=== PATIENT | female | born 1945 | race Caucasian/White ===

== ENCOUNTER 2021-03-27 19:58 | Inpatient (IN) | payer MEDICARE, MEDICAID, SELFPAY ==
[2021-03-27 19:44] VITALS: BP 130/81; PULSE 89; RESP 20; TEMP 38.6; O2SAT 90; BMI 24.7
--- NOTE | 2021-03-27 19:55 | CT_ITS ---
PROCEDURE INFORMATION: Exam: CT Head Without Contrast Exam date and time: 03/27/2021 7:55 PM Age: 75 years old Clinical indication: Injury or trauma; Fall; Blunt trauma (contusions or hematomas); Additional info: Fall x3 days ago TECHNIQUE: Imaging protocol: Computed tomography of the head without contrast. Radiation optimization: All CT scans at this facility use at least one of these dose optimization techniques: automated exposure control; mA and/or kV adjustment per patient size (includes targeted exams where dose is matched to clinical indication); or iterative reconstruction. COMPARISON: No relevant prior studies available. FINDINGS: Brain: Hypodensity within the anterior limb right internal capsule extending region of anterior caudate. Hypodensity also anterior left lentiform nucleus crossing internal capsule to the region caudate head. White matter changes compatible with small vessel occlusive change. No mass. No hemorrhage. Cerebral ventricles: No ventriculomegaly. Paranasal sinuses: Retention cyst maxillary sinus. Mastoid air cells: Visualized mastoid air cells are well aerated. Bones/joints: No acute fracture. Soft tissues: No significant soft tissue abnormality. IMPRESSION: 1. Hypodensity within bilateral basal ganglia which is age indeterminate but may be secondary to chronic lacunar infarction. Clinical correlation recommended. 2. White matter changes compatible with small vessel occlusive change.
--- NOTE | 2021-03-27 19:55 | XR_ITS ---
PROCEDURE INFORMATION: Exam: XR Chest Exam date and time: 03/27/2021 7:55 PM Age: 75 years old Clinical indication: Cough and fever; Additional info: Cough fever fall TECHNIQUE: Imaging protocol: XR of the chest. Views: 4 or more views. COMPARISON: No relevant prior studies available. FINDINGS: Lungs: Unremarkable. No consolidation. Pleural spaces: Unremarkable. No pleural effusion. No pneumothorax. Heart/Mediastinum: Unremarkable. No cardiomegaly. Bones/joints: Unremarkable. IMPRESSION: No acute findings.
--- NOTE | 2021-03-27 19:55 | CT_ITS ---
PROCEDURE INFORMATION: Exam: CT Cervical Spine Without Contrast Exam date and time: 03/27/2021 7:55 PM Age: 75 years old Clinical indication: Injury or trauma; Fall; Blunt trauma; Additional info: Fall x3 days ago TECHNIQUE: Imaging protocol: Computed tomography images of the cervical spine without contrast. Radiation optimization: All CT scans at this facility use at least one of these dose optimization techniques: automated exposure control; mA and/or kV adjustment per patient size (includes targeted exams where dose is matched to clinical indication); or iterative reconstruction. COMPARISON: CR XR CHEST AP 03/27/2021 8:09 PM FINDINGS: Bones/joints: Advanced multilevel degenerative changes. Reversal of the cervical lordosis. Disc bulge C3-C4. No acute fracture or dislocation. Lungs: Apical emphysema. Soft tissues: No soft tissue swelling. IMPRESSION: Advanced multilevel degenerative changes.
--- NOTE | 2021-03-27 19:58 | XR_ITS ---
PROCEDURE INFORMATION: Exam: XR Pelvis Exam date and time: 03/27/2021 7:58 PM Age: 75 years old Clinical indication: Pelvic pain; Additional info: Fall TECHNIQUE: Imaging protocol: XR pelvis. Views: 1 or 2 view. COMPARISON: No relevant prior studies available. FINDINGS: Bones/joints: Mild degenerative changes. No acute fracture or dislocation. Soft tissues: Unremarkable. IMPRESSION: No acute findings.
--- NOTE | 2021-03-27 20:03 | XR_ITS ---
PROCEDURE INFORMATION: Exam: XR Left Knee Exam date and time: 03/27/2021 8:03 PM Age: 75 years old Clinical indication: Pain; Knee; Left; Patient HX: Fall x3 days ago TECHNIQUE: Imaging protocol: XR Left knee. Views: 3 views. COMPARISON: No relevant prior studies available. FINDINGS: Bones/joints: Mild degenerative changes. No acute fracture. Soft tissues: Normal. IMPRESSION: No acute findings.
[2021-03-27 20:05] LABS: Influenza A, PCR Not Detected (NotDetected); Influenza B, PCR Not Detected (NotDetected)
[2021-03-27 20:21] LABS: Alanine Aminotransferase 37 U/L (12-78); Albumin/Globulin Ratio 1.2 (1.1-1.8); Alkaline Phosphatase 134 U/L (38-126); Anion Gap 15.3 mEq/L (5-15); Aspartate Amino Transferase 48 U/L (14-36); Bilirubin,Total 0.2 mg/dl (0.2-1.3); Blood Urea Nitrogen 23 mg/dl (7-17); Calcium 9.5 mg/dl (8.4-10.2); Carbon Dioxide 24 mmol/L (22.0-30.0); Chloride 102 mmol/L (98-107); Creatinine Clearance Estimated 50 mL/min (50-200); Estimated Glomerular Filt Rate 54 ml/min (>60); GFR (African American) 66 ML/MIN (>60); Globulin 3.4 g/dL (1.3-3.2); Glucose 146 mg/dl (74-100); Potassium 3.3 mmoL/L (3.5-5.1); Sodium 138 mmol/L (136-145); Total Protein,Serum 7.4 g/dl (6.3-8.2)
[2021-03-27 20:22] LABS: Basophils # 0.1 K/mm3 (0-0.2); Basophils % 1.3 % (0.1-2.0); Eosinophils % 0.8 % (0.1-12.0); Hematocrit 35.5 % (37.0-47.0); Hemoglobin 11.4 g/dL (12.2-16.2); Lymphocytes # 0.8 K/mm3 (0.7-4.5); Lymphocytes % 13.4 % (10-50); Mean Corpuscular Hemoglobin 30.3 pg (27.0-31.2); Mean Corpuscular Volume 94.7 fl (81-99); Mean Platelet Volume 7.7 fl (7.4-10.4); Monocytes # 0.4 K/mm3 (0.1-1.0); Monocytes % 7.8 % (1.7-9.3); Neutrophils # 4.3 K/mm3 (1.8-7.8); Neutrophils % 76.7 % (37.0-80.0); Platelet Count 525 K/mm3 (142-424); Red Blood Count 3.75 M/mm3 (4.20-5.40); Red Cell Distribution Width 15.1 % (11.5-17.5); White Blood Count 5.6 K/mm3 (4.8-10.8)
[2021-03-27 20:25] LABS: C-Reactive Protein 113.3 mg/L (0-4)
[2021-03-27 20:40] LABS: Coronavirus 19, PCR Detected (NotDetected)
--- NOTE | 2021-03-27 20:41 | HMH.EDFALL ---
ED Disposition Clinical Impression: COVID-19, Lacunar infarction, Elevated erythrocyte sedimentation rate Falls Qualifiers: Encounter type: initial encounter Qualified Code(s): W19.XXXA - Unspecified fall, initial encounter Depression Qualifiers: Depression Type: major depressive disorder Major depression recurrence: unspecified whether recurrent Active/Remission status: remission status unspecified Qualified Code(s): F32.9 - Major depressive disorder, single episode, unspecified HTN (hypertension) Qualifiers: Hypertension type: primary hypertension Qualified Code(s): I10 - Essential (primary) hypertension Disposition: Admitted As Inpatient Condition on Discharge: Good - Critical Care Critical Care Time: No Attestation: On 03/27/21, the high probability of a clinically significant, sudden or life threatening deterioration of the following system(s) required my full and direct attention, intervention and personal management. The time I documented below is in addition to time spent performing reported procedures but includes the following listed in this critical care notation. Medical Decision Making - Medical Records Medical records reviewed: Yes: I reviewed the patient's medical records. - Speedy Inquiry Pt receiving controlled substance: No Vital Signs: 03/27/21 19:44 03/27/21 21:14 03/27/21 22:33 Temperature 101.4 F H 102 F H 99.9 F H Temperature Source Oral Rectal Oral Pulse Rate 83 73 Pulse Rate [Right Radial] 89 Respiratory Rate 20 25 H 19 Blood Pressure 141/74 H 134/77 Blood Pressure [Left Arm] 130/81 Blood Pressure Mean [Left Arm] 97 Blood Pressure Source Automatic Cuff Blood Pressure Source [Left Arm] Automatic Cuff Blood Pressure Position Sitting Blood Pressure Position [Left Arm] Sitting 02 Sat by Pulse Oximetry 90 L 94 L 93 L Oxygen Delivery Method Room Air Room Air Room Air - Lab Data Lab results reviewed: Yes: I reviewed the patient's lab results. Lab Results 03/27/21 19:56: WBC 5.6, RBC 3.75 L, Hgb 11.4 L, Hct 35.5 L, MCV 94.7, MCH 30.3, MCHC 32.0, RDW 15.1, Plt Count 525 H, MPV 7.7, Neut % (Auto) 76.7, Lymph % (Auto) 13.4, [place] % (Auto) 7.8, Eos % (Auto) 0.8, Baso % (Auto) 1.3, Neut # (Auto) 4.3, Lymph # (Auto) 0.8, [place] # (Auto) 0.4, Eos # (Auto) 0.0, Baso # (Auto) 0.1 03/27/21 19:56: Sodium 138, Potassium 3.3 L, Chloride 102, Carbon Dioxide 24, Anion Gap 15.3 H, BUN 23 H, Creatinine 1.00, Estimated Creat Clear 50, Estimated GFR 54 L, Est GFR ( Amer) 66, Glucose 146 H, Calcium 9.5, Total Bilirubin 0.2, AST 48 H, ALT 37, Alkaline Phosphatase 134 H, C-Reactive Protein 113.3 H, Total Protein 7.4, Albumin 4.0, Globulin 3.4 H, Albumin/Globulin Ratio 1.2 03/27/21 19:56: Lactate 4.0 H 03/27/21 19:56: ESR > 140 H 03/27/21 19:56: SARS-CoV-2 (PCR) Detected A, Influenza A Untype (PCR) Not detected, Influenza Type B (PCR) Not detected 03/27/21 19:56: Procalcitonin 0.230 03/27/21 21:00: Urine Color Yellow, Urine Appearance Clear, Urine pH 6.0, Ur Specific [place] 1.025, Urine Protein Trace, Urine Glucose (UA) Negative, Urine Ketones Negative, Urine Blood Trace-l, Urine Nitrate Negative, Urine Bilirubin Negative, Urine Urobilinogen 0.2, Ur Leukocyte Esterase Negative, Urine RBC 3-5, Urine WBC 5-10, Ur Squamous Epith Cells 3-5, Urine Bacteria Trace, Urine Mucus 1+ Result diagrams: 03/27/21 19:56 03/27/21 19:56 Orders (Tests/Meds): ED MEDICATIONS Generic Name Dose Route Start Last Admin Trade Name Freq PRN Reason Stop Dose Admin Sodium Chloride 1,000 mls @ 999 mls/hr 03/27/21 20:30 03/27/21 20:32 Sod Chlor 0.9% 1000ml Bag IV 03/27/21 21:30 999 mls/hr .Q1H1M CONRAD Administration Sodium Chloride 1,000 mls @ 999 mls/hr 03/27/21 20:30 03/27/21 20:32 Sod Chlor 0.9% 1000ml Bag IV 01/19/22 21:30 999 mls/hr .Q1H1M CONRAD Administration Discontinued Medications Generic Name Dose Route Start Last Admin Trade Name Freq PRN Reason Stop Dose Admin Acetaminop
[2021-03-27 21:12] LABS: Erythrocyte Sedimentation Rate > 140 mm/hr (0-30)
[2021-03-27 21:14] VITALS: BP 141/74; PULSE 83; RESP 25; TEMP 38.8; O2SAT 94
[2021-03-27 21:17] LABS: Microscopic, Urine URINE MICROSCOPIC (MICROSCOPIC)
--- NOTE | 2021-03-27 21:28 | PC.NURSE ---
DECAL APPLIER NOTIFIED OF NEED FOR ADMIT.
[2021-03-27 21:29] LABS: Appearance,Urine CLEAR (Clear); Bilirubin,Urine Negative (Negative); Blood, Urine TRACE-L (Negative); Color,Urine YELLOW (Yellow); Glucose,Urine (UA) Negative (Negative); Ketones,Urine Negative (Negative); Leukocyte Esterase,Urine Negative (Negative); Nitrate,Urine Negative (Negative); Protein,Urine TRACE (Negative); Specific Gravity, Urine 1.025 (1.005-1.030); Urobilinogen,Urine 0.2 EU/dl (0.2)
[2021-03-27 21:46] LABS: Bacteria,Urine Trace /lpf; Mucus,Urine 1+ /lpf
[2021-03-27 22:33] VITALS: BP 134/77; PULSE 73; RESP 19; TEMP 37.7; O2SAT 93
[2021-03-27 23:13] VITALS: BP 118/64; PULSE 77; RESP 18; TEMP 37.7; O2SAT 95
[2021-03-27 23:54] LABS: Reflex Lactic Add Lactic Reflex
[2021-03-28] VITALS (9 sets, daily range): BP systolic 124–155; BP diastolic 60–87; PULSE 61–77; RESP 16–19; TEMP 36.6–37.1; O2SAT 91–97; BMI 25.7
--- NOTE | 2021-03-28 00:12 | PC.NURSE ---
MARIO Chou attempted to call report at 2230 and was told by RN that she was not ready for report and to call back in 1 hour. MARIO Chou attempted to call report at 2330 and RN said she was dealing with a rapid response and to call back in an hour. Will attempt to call report at 0030.
[2021-03-28 00:26] LABS: Lactic Acid Follow Up (RFLX 1) 1.2 mmol/L (0.7-2.1)
--- NOTE | 2021-03-28 01:02 | PC.NURSE ---
Report called by MARIO Chou at 0046
--- NOTE | 2021-03-28 01:33 | PC.NURSE ---
patient up to floor via stretcher @ this time.
--- NOTE | 2021-03-28 07:12 | HMH.PHAVTE ---
[facility] Pharmacy VTE Monitoring - Patient Demographics Admission date: 03/28/21 Report Date: 03/28/21 Time: 07:12 Allergies/Adverse Reactions: Patient Allergies No Known Allergies Allergy (Verified 03/27/21 19:53) Height: 1.65 m Weight: 69.989 kg Patient Problems: Current Active Problems COVID-19 (Acute) Falls (Acute) Lacunar infarction (Acute) Elevated erythrocyte sedimentation rate (Acute) Depression (Acute) HTN (hypertension) (Acute) - VTE Risk Labs: VTE Related Lab Results Hgb 11.4 g/dL (12.2-16.2) L 03/27/21 19:56 Hct 35.5 % (37.0-47.0) L 03/27/21 19:56 Plt Count 525 K/mm3 (142-424) H 03/27/21 19:56 BUN 23 mg/dl (7-17) H 03/27/21 19:56 Creatinine 1.00 mg/dl (0.52-1.04) 03/27/21 19:56 Estimated Creat Clear 50 mL/min (50-200) 03/27/21 19:56 Was VTE Risk Assessment Performed: Yes VTE Score: 2 VTE Risk Level: Low Risk Clinical Trial Participant: No - Prophylaxis VTE Prophylaxis Ordered?: Yes Types of VTE Prophylaxis: TEDS Knee High
[2021-03-28 07:38] LABS: Basophils % 0.5 % (0.1-2.0); Hemoglobin 10.7 g/dL (12.2-16.2); Lymphocytes # 0.7 K/mm3 (0.7-4.5); Lymphocytes % 15.2 % (10-50); Mean Corpuscular HGB Conc 31.5 g/dL (31.8-35.4); Mean Corpuscular Hemoglobin 30.3 pg (27.0-31.2); Mean Corpuscular Volume 96.1 fl (81-99); Mean Platelet Volume 8.2 fl (7.4-10.4); Monocytes # 0.2 K/mm3 (0.1-1.0); Monocytes % 3.6 % (1.7-9.3); Neutrophils # 3.6 K/mm3 (1.8-7.8); Neutrophils % 80.7 % (37.0-80.0); Platelet Count 418 K/mm3 (142-424); Red Blood Count 3.54 M/mm3 (4.20-5.40); Red Cell Distribution Width 15.1 % (11.5-17.5); White Blood Count 4.5 K/mm3 (4.8-10.8)
--- NOTE | 2021-03-28 08:00 | CA_ITS ---
APPROVED REPORT EXAM: Comprehensive 2D, Doppler, and color-flow Echocardiogram Court Manager: Sydney Crane, RCS, RVS Ht: 5 ft 2 in Wt: 140lbs BSA: 1.64 BP: 134/77 mmHg Rhythm: Bradycardia Indications: Murmur, Covid+, smoker 2D Dimensions LVDd 5.06 cm LVEF (Visual) 67.40 % LVDs 3.16 cm LA Volume 62.40 mL LVOT 1.99 cm (M/F) 1.5-2.5 LA Volume Index 38.00 mL/m2 (M/F) 16-34 M-Mode Dimensions RVDd 2.13 cm (0.9-2.6) LA Diam 3.24 cm (1.9-4.0) LVDd 5.14 cm (3.5-5.7) Ao Diam 3.09 cm (2.0-3.7) LVDs 3.46 cm (3.5-5.7) IVSd 0.91 cm (0.6-1.1) PWd 1.03 cm (0.6-1.1) EF (Teich) 60.70% EPSs 0.80 cm FS 32.70% EDV (Teich) 126.10 mL TAPSE 2.51 (<1.7) ESV (Teich) 49.50 mL LV Diastology E Decel Time 323.00 (160-240 msec) E/A Ratio 0.74 MED E' 4.90 (< 7 cm/sec) MED A' 8.50 cm/s E'/MED E' Ratio 14.53 (>14) LAT E' 6.30 (<10 cm/sec) LAT A' 8.90 cm/s E/LAT E' Ratio 11.30 (>14) Aortic Valve LVOT Max 83.00 (70-110 cm/s) LVOT VTI 21.65 cm AoV Peak [place]. 147.00 (50-130 cm/s) AO Peak GR. 8.60 mmHg AO Mean GR. 4.80 (<5 mmHg) AO VTI 35.76 (18-25 cm) LINDA (VTI) 1.88 (2.5-4.5 cm2) Mitral Valve MV A Velocity 97.00 (40-130 cm/s) E/A Ratio 0.74 MV Decel. Time 323.00 (160-240 ms) MV Mean Gr. 1.50 (<2mmHg) Pulmonary Valve PV Peak Velocity 54.00 (50-150 cm/s) Tricuspid Valve TR P. Velocity 209.00 cm/s RAP Estimate 10.00 mmHg RVSP 27.40 mmHg Left Ventricle Left atrium is mildly enlarged, left ventricle is normal size, mild concentric left ventricular hypertrophy, visually estimated ejection fraction 55% with no regional wall motion abnormality, grade 1 diastolic dysfunction seen without tissue Doppler evidence of raise left atrial pressure. Right Ventricle Right atrium is mildly enlarged, right ventricle is normal size and contractility. Aortic Valve Aortic valve is minimally thickened and fibrosed, there is no aortic stenosis or aortic insufficiency. Mitral Valve Mitral valve is grossly normal, there is trace mitral regurgitation. Tricuspid Valve Tricuspid valve grossly normal, there is trace tricuspid regurgitation, tricuspid regurgitation jet velocity is inadequate for calculation of the right ventricular systolic pressure. Pulmonic Valve Pulmonic valve is poorly visualized. Great Vessels Aortic root is normal size. Inferior vena cava is normal size with normal inspiratory collapse. Pericardium No significant pericardial effusion noted. Conclusion 1. Biatrial enlargement, normal left ventricular size, mild concentric left ventricular hypertrophy, visually estimated ejection fraction 55% with no obvious regional wall motion abnormality, grade 1 diastolic dysfunction seen without tissue Doppler evidence of raise left atrial pressure. 2. Trace mitral and tricuspid regurgitation. 3. No significant pericardial effusion noted. 4. Inferior vena cava is normal size with normal inspiratory collapse. Mild Electronically signed by : Marty Quarles MD 03/29/2021 10:44:22
[2021-03-28 08:05] LABS: Anion Gap 10.9 mEq/L (5-15); Blood Urea Nitrogen 20 mg/dl (7-17); Calcium 8.6 mg/dl (8.4-10.2); Carbon Dioxide 21 mmol/L (22.0-30.0); Chloride 110 mmol/L (98-107); Creatinine Clearance Estimated 55 mL/min (50-200); Estimated Glomerular Filt Rate 82 ml/min (>60); GFR (African American) 99 ML/MIN (>60); Glucose 143 mg/dl (74-100); Magnesium 1.9 mg/dl (1.6-2.3); Potassium 3.9 mmoL/L (3.5-5.1); Sodium 138 mmol/L (136-145)
--- NOTE | 2021-03-28 08:08 | HMH.PHAINT ---
HOME MEDICATION LIST VERIFIED USING LIST FROM [facility]
--- NOTE | 2021-03-28 09:17 | HMH.HP ---
*Admission Date: 03/28/21 *Chief complaint: Fall *History of present illness: 75-year-old female patient presented to the [facility] emergency department with reports of falling out of bed 1 time the previous day and 3 times today. She is a resident of [place] and is usually up and walking around without any difficulty. She reports she just does not feel well she really cannot elaborate on that except that she just does not feel well and has a cough and a little short of breath Left knee x-ray, pelvis x-ray, chest x-ray all revealed no acute findings. Head CT and cervical spinal CT also revealed no acute findings In the emergency department after complaining of fatigue, weakness for several days, and cough patient tested positive for COVID [facility] History I have reviewed the patient's past medical history: Yes Medical History: Reports:: Cancer (ovarian), Hypertension *Have you ever received a pneumonia vaccine?: No *Have you received a flu vaccine this season?: No Other Surgeries: Yes: Hysterectomy-Total, Other - *Social History Smoking Status: Former smoker Tobacco Type: cigarettes # Packs/Day (cigarettes): 1 Alcohol Intake: never *Occupational Status:: retired Housing: assisted living facility Household Members: other *Travel in the last 8 weeks: None Family Hx:: Unable to obtain Review of Systems - Review of Systems Review of systems:: pertinent systems reviewed and negative unless documented below - Constitutional Reports fatigue, Reports weakness, Denies chills - Eyes Reports double vision, Denies blurry vision - ENT Denies change in voice, Denies dizziness - *Cardiovascular Reports shortness of breath with activity, Denies chest pain, Denies chest pain with activity - *Respiratory Reports cough, Reports shortness of breath, Reports shortness of breath with activity - *Gastrointestinal Denies abdominal pain, Denies change in stools - *Musculoskeletal Denies joint pain, Denies back pain - Integumentary/Breasts Denies change in skin color, Denies non-healing lesions - *Neurologic Denies abnormal movements, Denies headache(s), Denies seizure-like activity - Psychiatric Denies hearing things others do not hear, Denies change in appetite - Endocrine Denies excessive sweating, Denies heat intolerance - Hematologic/Lymphatic Denies easy bleeding, Denies easy bruising - Allergic/Immunologic Reports tongue swelling, Denies GI upset with certain foods Meds Home Medications Medication Instructions Recorded Confirmed Type Fluoxetine HCl 40 mg PO DAILY 03/27/21 03/28/21 History Metoprolol Tartrate [Lopressor 12.5 mg PO BID 03/27/21 03/27/21 History 25mg tablet] OLANZapine [Olanzapine] 7.5 mg PO HS 03/27/21 03/28/21 History hydroCHLOROthiazide [HCTZ 25mg 25 mg PO DAILY 03/27/21 03/27/21 History tab] Melatonin 5 mg PO HS 03/28/21 03/28/21 History Allergies Allergy/AdvReac Type Severity Reaction Status Date / Time No Known Allergies Allergy Verified 03/27/21 19:53 Exam Vital signs and Labs for Last 24 Hours: Temp Pulse Resp BP Pulse Ox 98.7 F 66 16 148/87 H 97 03/28/21 04:00 03/28/21 04:00 03/28/21 04:00 03/28/21 04:00 03/28/21 04:00 Laboratory Results - last 24 hr 03/27/21 00:15: Lactate 1.2 03/27/21 19:56: WBC 5.6, RBC 3.75 L, Hgb 11.4 L, Hct 35.5 L, MCV 94.7, MCH 30.3, MCHC 32.0, RDW 15.1, Plt Count 525 H, MPV 7.7, Neut % (Auto) 76.7, Lymph % (Auto) 13.4, [place] % (Auto) 7.8, Eos % (Auto) 0.8, Baso % (Auto) 1.3, Neut # (Auto) 4.3, Lymph # (Auto) 0.8, [place] # (Auto) 0.4, Eos # (Auto) 0.0, Baso # (Auto) 0.1 03/27/21 19:56: Sodium 138, Potassium 3.3 L, Chloride 102, Carbon Dioxide 24, Anion Gap 15.3 H, BUN 23 H, Creatinine 1.00, Estimated Creat Clear 50, Estimated GFR 54 L, Est GFR ( Amer) 66, Glucose 146 H, Calcium 9.5, Total Bilirubin 0.2, AST 48 H, ALT 37, Alkaline Phosphatase 134 H, C-Reactive Protein 113.3 H, Total Protein 7.4, Album
--- NOTE | 2021-03-28 09:36 | HMH.PULMCON ---
*Admission Date: 03/28/21 *Reason for consult:: Acute hypoxic respiratory failure, COVID-19 pneumonia. *History of present illness: Ms. Damon is a 75-year-old female greater than [id number] smoking history recently stopped smoking 2 months ago, not on any inhalers at home, not on any oxygen therapy presented to the hospital with worsening respiratory distress needing oxygen supplementation to maintain O2 saturation to the level and also found to be positive for COVID-19 pneumonia and pulmonary was called for further management. [facility] History Medical History: Reports:: Cancer (ovarian), Hypertension *Have you ever received a pneumonia vaccine?: No *Have you received a flu vaccine this season?: No Other Surgeries: Yes: Hysterectomy-Total, Other - *Social History Smoking Status: Former smoker Tobacco Type: cigarettes # Packs/Day (cigarettes): 1 Alcohol Intake: never *Occupational Status:: retired Housing: assisted living facility Household Members: other *Travel in the last 8 weeks: None Family Hx:: Unable to obtain ROS - Cons Reports body ache(s) - ENT Denies bleeding gums - Card Reports shortness of breath, Reports shortness of breath with activity - Resp Respiratory: Reports chest congestion, Reports cough, Reports dyspnea, Reports dyspnea on exertion, Denies excessive phlegm production, Reports cough with sputum production, Denies wheezing - GI Gastrointestingal: Denies: abdominal pain - Psych Denies thoughts of hurting/killing others, Denies thoughts of hurting/killing yourself Meds Home Medications Medication Instructions Recorded Confirmed Type Fluoxetine HCl 40 mg PO DAILY 03/27/21 03/28/21 History Metoprolol Tartrate [Lopressor 12.5 mg PO BID 03/27/21 03/27/21 History 25mg tablet] OLANZapine [Olanzapine] 7.5 mg PO HS 03/27/21 03/28/21 History hydroCHLOROthiazide [HCTZ 25mg 25 mg PO DAILY 03/27/21 03/27/21 History tab] Melatonin 5 mg PO HS 03/28/21 03/28/21 History Allergies Allergy/AdvReac Type Severity Reaction Status Date / Time No Known Allergies Allergy Verified 03/27/21 19:53 Exam - Constitutional Constitutional:: Present: no acute distress, comfortable - HENMT Exam HENMT: Present: normocephalic, atraumatic - Eye Exam Eyes:: Present: normal appearance both eyes and related structures - Neck Exam Neck:: Present: normal visual inspection - Respiratory Exam Respiratory:: Present: able to speak in complete sentences, no respiratory distress, wheezing. Absent: respiratory distress, crackles - Cardiovascular Exam Cardiac:: Present: S1, S2 - GI Exam GI:: Present: soft, normoactive bowel sounds - Skin Exam Skin: Present: warm, no rash - Neurological Exam Neurological: Present: alert, awake - Extremities Exam Extremities: Present: no cyanosis, no clubbing, no edema Internal Medicine - CN: Reslt - Labs CBC & Chem 7: 03/28/21 06:31 03/28/21 06:31 Labs: Short CBC 03/27/21 03/28/21 Range/Units 19:56 06:31 WBC 5.6 4.5 L (4.8-10.8) K/mm3 Hgb 11.4 L 10.7 L (12.2-16.2) g/dL Hct 35.5 L 34.0 L (37.0-47.0) % Plt Count 525 H 418 (142-424) K/mm3 BMP 03/27/21 03/28/21 19:56 06:31 Sodium 138 138 Potassium 3.3 L 3.9 Chloride 102 110 H Carbon Dioxide 24 21 L BUN 23 H 20 H Creatinine 1.00 0.70 D Glucose 146 H 143 H Calcium 9.5 8.6 Liver Function 03/27/21 Range/Units 19:56 Total Bilirubin 0.2 (0.2-1.3) mg/dl AST 48 H (14-36) U/L ALT 37 (12-78) U/L Alkaline Phosphatase 134 H (38-126) U/L Albumin 4.0 (3.5-5.0) g/dl Urine 03/27/21 Range/Units 21:00 Urine Color Yellow (Yellow) Urine Appearance Clear (Clear) Urine pH 6.0 (5.0-8.5) Ur Specific [place] 1.025 (1.005-1.030) Urine Protein Trace (Negative) Urine Glucose (UA) Negative (Negative) Assessment and Plan - Assessment and plan all Dx Assessment and Plan for all problems:: #Acute hypoxic
--- NOTE | 2021-03-28 09:50 | SW/DCPLANNER ---
Addendum entered by Lupe Urban 03/29/21 11:43: VERNELL FROM [facility] CAME UP TO SEE PATIENT TO EVALUATE HER TO RETURN BACK,, VERNELL STATED SHE FEELS SHE NEEDS TO GO SOMEWHERE FOR REHAB AND TO MONITOR HER 02...I HAVE SENT IT TO [facility]. IF ACCEPTED SHE WILL DISCHARGE THERE LATER IN THE AFTERNOON. Original Note: This patient currently resides at [facility]. I spoke with Diogenes/Vernell at [facility] to inform them patient has been admitted and is COVID positive. I will continue to follow up with [facility] until patient is medically stable for discharge. I will also follow up with PT/OT evaluation to see if placement is needed once medically stable for discharge. Discharge date is unknown at this time.
--- NOTE | 2021-03-28 09:51 | HMH.OTEV ---
OT Inpatient Evaluation Rehab OT IP Evaluation Start: 03/28/21 01:55 Freq: ONCE Status: Complete Protocol: Document 03/28/21 09:45 [facility] (Rec: 03/28/21 09:50 [facility] [id number]) Rehab OT IP Assessment Subjective History Pt oriented x 2 on arrival. Pt agreeable to engage in therapy evaluation. Pt was admitted via ED on 03/27/21 due to COVID-19, Lacunar infarction, Elevated erythrocyte sedimentation rate . History of patient not provided in reports. Therapist was informed patient is from [place]. Pt reports prior to being in the hospital she was independently with all ADLs. She did rely on staff to complete all IADLs . Pt did not use a walker during ambulation. Subjective They helped me if I needed it . Pt completed bed mobility to go from supine to sitting at eob with cga. Pt stood from eob with cga. Pt engaged in functional mobility task of ~ 25 feet with cga. Pt sat back down at eob with cga. Pt completed bed mobility and went from sitting to supine with cga. Pt was left with call kelly and all other needs in reach. Objective Patient Orientation Person,Birthday Upper Extremity Gross ROM Min Limitation <25% Shoulder ROM Limitations Muscle Weakness Elbow ROM Limitations Muscle Weakness Wrist Limitations of Range of Motion Muscle Weakness Bed Mobility bed mobility-scooting,bed mobility - supine/sit,bed mobility - rolling Assist Level Contact Guard/Hand Hold Transfer Training Sit/Stand Transfer Assist Level Contact Guard/Hand Hold Rehab OT IP prob,goals,plan Problems Date of Evaluation: 03/28/21 OT IP Problems Bed Mobility,Transfers,Gait, Balance,Self care,Safety Rehab Potential Rehab Potential Good Equipment Needs Assistive Devices Rolling / Wheeled Walker Plan
--- NOTE | 2021-03-28 10:13 | HMH.PTEV ---
Physical Therapy Evaluation Rehab PT IP Evaluation Start: 03/28/21 01:55 Freq: ONCE Status: Active Protocol: Document 03/28/21 10:09 ADOLFO (Rec: 03/28/21 10:12 PHORALEXIS [id number]) Subjective/History History History 75 yowf adm to [facility] with general weakness, found to be COVID-19 +. She reports she lives at a boarding house, which is actually a personal jail and that she was independent with ambulation at baseline, just not very much. Subjective Subjective Pt with no c/o this am. Rehab PT IP Eval Objective Appearance Patient Behavior Appropriate Patient Orientation Person,Place Difficulty following instructions none Speech Pattern Clear Ambulation Patient Able to Ambulate Yes Ambulation Observation IP General Gait Pattern Observation Wide Based Gait,Shuffling Step Ambulation Distance (feet) 30 Ambulation Assistive Device None Ambulation Ability Contact Guard/Hand Hold Balance Ability to Arise Able, uses arms to help Sitting Balance Steady, safe Standing Balance Steady, wide stance Dynamic Sitting Balance Ability Good Dynamic Standing Balance Ability Fair Transfers Bed Transfer Ability Contact Guard/Hand Hold Chair Transfer Ability Contact Guard/Hand Hold Sit to Stand Bed Transfer Ability Contact Guard/Hand Hold Sit to Stand Chair Transfer Ability Contact Guard/Hand Hold Rehab PT IP prob,goals,plan Problems Date of Evaluation: 03/28/21 PT IP Problems Bed Mobility,Transfers,Gait Rehab Potential Rehab Potential Good Plan PT Intervention Plan Bed Mobility,Transfers,Gait, Self care,Therapeutic Exercise PT Plan Frequency BID Duration LOS Discharge Goals Bed Transfer Ability Supervision/Stand by Sit to Stand Chair Transfer Ability Supervision/Stand by Ambulation Assistive Device None Ambulation Distance (feet) 40 Discharge Plan PT Discharge Plan Pt is appropriate to return to prior living situation currently once medically stable. G -code Required No Eval Complexity Eval Charge Codes 00719 - Moderate Complexity PHYSICIAN CERTIFICATION: I certify the specified therapy services for Keyla Damon are required, authorized, and reviewed every 30 days.
[2021-03-28 11:10] LABS: D-Dimer 1.85 ug/mL (0.0-0.5)
[2021-03-29] VITALS (7 sets, daily range): BP systolic 128–136; BP diastolic 66–93; PULSE 67–90; RESP 14–20; TEMP 36.8–37.3; O2SAT 90–98; BMI 26.4
[2021-03-29 07:55] LABS: Alanine Aminotransferase 31 U/L (12-78); Albumin Level 3.1 g/dl (3.5-5.0); Albumin/Globulin Ratio 1.1 (1.1-1.8); Alkaline Phosphatase 102 U/L (38-126); Anion Gap 8.5 mEq/L (5-15); Aspartate Amino Transferase 55 U/L (14-36); Bilirubin,Total 0.2 mg/dl (0.2-1.3); Blood Urea Nitrogen 17 mg/dl (7-17); Calcium 8.6 mg/dl (8.4-10.2); Carbon Dioxide 25 mmol/L (22.0-30.0); Chloride 110 mmol/L (98-107); Creatinine Clearance Estimated 57 mL/min (50-200); Estimated Glomerular Filt Rate 82 ml/min (>60); GFR (African American) 99 ML/MIN (>60); Globulin 2.9 g/dL (1.3-3.2); Glucose 169 mg/dl (74-100); Potassium 3.5 mmoL/L (3.5-5.1); Sodium 140 mmol/L (136-145)
--- NOTE | 2021-03-29 09:24 | P.PN_ITS ---
Internal Medicine - PN: Subj *Date: 03/29/21 *Time: 11:36 Interval history: No acute respiratory events overnight. Patient admits continued improvement in her symptoms. Exam - Constitutional Constitutional:: Present: no acute distress, comfortable - HENMT Exam HENMT: Present: normocephalic, atraumatic - Eye Exam Eyes:: Present: normal appearance both eyes and related structures - Neck Exam Neck:: Present: normal visual inspection - Respiratory Exam Respiratory:: Present: able to speak in complete sentences, no respiratory distress, wheezing - Cardiovascular Exam Cardiac:: Present: S1, S2 - GI Exam GI:: Present: soft - Skin Exam Skin: Present: warm, no rash - Neurological Exam Neurological: Present: alert, awake - Extremities Exam Extremities: Present: no cyanosis, no clubbing, no edema Assessment and Plan (1) COVID-19 Status: Acute Category: Medical Code(s): U07.1 - COVID-19 (2) Falls Status: Acute Qualifiers: Encounter type: initial encounter Qualified Code(s): W19.XXXA - Unspecified fall, initial encounter Category: Medical Code(s): W19.XXXA - Unspecified fall, initial encounter (3) HTN (hypertension) Status: Acute Qualifiers: Hypertension type: primary hypertension Qualified Code(s): I10 - Essential (primary) hypertension Category: Medical Code(s): I10 - Essential (primary) hypertension (4) Elevated C-reactive protein (CRP) Status: Acute Category: Medical Code(s): R79.82 - Elevated C-reactive protein (CRP) (5) Elevated erythrocyte sedimentation rate Status: Acute Category: Medical Code(s): R70.0 - Elevated erythrocyte sedimentation rate - Assessment and plan all Dx Assessment and Plan for all problems:: #Acute hypoxic respiratory failure: #COVID-19 pneumonia: Completed COVID-19 vaccination as per the patient. Greater than 61-bili-[id number] smoking history recently stopped smoking 2 months ago. Not on any inhalers at home. Not using any oxygen at home. COVID-19 PCR positive. Flu negative. No evidence of leukocytosis. BUN/creatinine within normal limits. CRP elevated at 113. D-dimer elevated 1.85. Improving oxygen saturations. No evidence of tachycardia. We will continue to monitor.Chest x-ray from admission mild patchy airspace disease predominantly left lower lobe. Interval update: No acute change in her respiratory status. Patient was placed back on 2 L nasal cannula overnight. She was saturating 96% on 2 L, weaned to room air. Auscultation continued to show wheezing. Plan: -Continue oxygen supplementation as needed to maintain O2 saturation goal of 88% and above. -COntinue remdesivir up until discharge on dexamethasone for 10 days for COVID- 19 pneumonia. -Continue levofloxacin x 5 days for possible community-acquired pneumonia. -DuoNebs every 6 hours scheduled. As thank you for involving pulmonary in this patient care. We will continue to follow. We will also schedule full PFTs and 6-minute walk testing in pulmonary clinic follow-up in 4 to 6 weeks.
--- NOTE | 2021-03-29 11:15 | P.PN_ITS ---
Internal Medicine - PN: Subj *Date: 03/29/21 *Time: 08:05 Interval history: pt states she is feeling better today was able to eat breakfast Exam Vital signs and Labs for Last 24 Hours: Temp Pulse Resp BP Pulse Ox 98.5 F 78 16 133/93 H 94 L 03/29/21 08:00 03/29/21 08:00 03/29/21 08:00 03/29/21 08:00 03/29/21 08:00 Laboratory Results - last 24 hr 03/28/21 10:11: D-Dimer 1.85 H 03/29/21 07:09: Sodium 140, Potassium 3.5, Chloride 110 H, Carbon Dioxide 25, Anion Gap 8.5, BUN 17, Creatinine 0.70, Estimated Creat Clear 57, Estimated GFR 82, Est GFR ( Amer) 99, Glucose 169 H, Calcium 8.6, Total Bilirubin 0.2, AST 55 H, ALT 31, Alkaline Phosphatase 102, Total Protein 6.0 L, Albumin 3.1 L D , Globulin 2.9, Albumin/Globulin Ratio 1.1 I & O for Last 24 hours: Intake & Output 03/26/21 03/27/21 03/28/21 03/29/21 11:59 11:59 11:59 11:59 Intake Total 2400 / 2400 300 / 300 Balance 2400 / 2400 300 / 300 Weight 154 lb 4.8 oz 158 lb 12.8 oz - Constitutional no acute distress, obese - *Routine HEENT Exam Head: Present: normocephalic Eye: Present: PERRL ENT: Present: mucous membranes moist - *Routine Neck Exam Present: supple. Absent: lymphadenopathy - *Routine Respiratory Exam Present: wheezes - *Routine Cardiovascular Exam Present: RRR - *Routine Abdominal Exam Present: soft, normoactive bowel sounds. Absent: tenderness - *Routine Extremities Exam Absent: cyanosis, clubbing, edema - *Routine Skin Exam Present: warm. Absent: rash - *Routine Neurological Exam Present: alert Assessment and Plan (1) COVID-19 Status: Acute Category: Medical Code(s): U07.1 - COVID-19 (2) Falls Status: Acute Qualifiers: Encounter type: initial encounter Qualified Code(s): W19.XXXA - Unspecified fall, initial encounter Category: Medical Code(s): W19.XXXA - Unspecified fall, initial encounter (3) HTN (hypertension) Status: Acute Qualifiers: Hypertension type: primary hypertension Qualified Code(s): I10 - Essential (primary) hypertension Category: Medical Code(s): I10 - Essential (primary) hypertension (4) Elevated C-reactive protein (CRP) Status: Acute Category: Medical Code(s): R79.82 - Elevated C-reactive protein (CRP) (5) Elevated erythrocyte sedimentation rate Status: Acute Category: Medical Code(s): R70.0 - Elevated erythrocyte sedimentation rate - Assessment and plan all Dx Assessment and Plan for all problems:: rounded with dr leyva all orders per dr leyva pulmark consult poss transfer back to personal senior care
--- NOTE | 2021-03-29 13:11 | XR_ITS ---
FINAL REPORT CLINICAL HISTORY: covid COMPARISON: March 27, 2021 FINDINGS: SINGLE VIEW CHEST. The heart is normal in size. The mediastinum is unremarkable. There is worsening bibasilar pneumonia or atelectasis. There is no pneumothorax. IMPRESSION: Worsening bibasilar pneumonia or atelectasis. Reviewed, Interpreted and Dictated by Joaquín Ceballos III, MD Transcribed by Tracey Ko Authenticated by Joaquín Ceballos III, MD on 03/29/2021 02:31:10 PM [facility]
--- NOTE | 2021-03-29 15:20 | SW/DCPLANNER ---
PATIENT IS [facility]ING [facility] BECAUSE OF THE IMMEDIATE NEED FOR ACUTE CARE BED R/T COVID PATIENT IS MEDICALLY STABLE TO DISCHARGE TODAY...WILL DISCHARGE THERE FOR SKILLED CARE AND ONCE SKILLED CARE IS COMPLETED TO RETURN BACK TO HER PERSONAL ASSISTED IN [place]..
--- NOTE | 2021-03-29 15:48 | HMH.DCSUM ---
General - General Admission date:: 03/28/21 Discharge date: 03/29/21 HPI HPI: 75-year-old female patient presented to the [facility] emergency department with reports of falling out of bed 1 time the previous day and 3 times today. She is a resident of [place] and is usually up and walking around without any difficulty. She reports she just does not feel well she really cannot elaborate on that except that she just does not feel well and has a cough and a little short of breath Left knee x-ray, pelvis x-ray, chest x-ray all revealed no acute findings. Head CT and cervical spinal CT also revealed no acute findings In the emergency department after complaining of fatigue, weakness for several days, and cough patient tested positive for COVID Hospital Course Hospital Course: Laboratory Tests 03/27/21 03/27/21 03/27/21 00:15 19:56 19:56 WBC 5.6 RBC 3.75 L Hgb 11.4 L Hct 35.5 L MCV 94.7 MCH 30.3 MCHC 32.0 RDW 15.1 Plt Count 525 H MPV 7.7 Neut % (Auto) 76.7 Lymph % (Auto) 13.4 [place] % (Auto) 7.8 Eos % (Auto) 0.8 Baso % (Auto) 1.3 Neut # (Auto) 4.3 Lymph # (Auto) 0.8 [place] # (Auto) 0.4 Eos # (Auto) 0.0 Baso # (Auto) 0.1 ESR D-Dimer Sodium 138 Potassium 3.3 L Chloride 102 Carbon Dioxide 24 Anion Gap 15.3 H BUN 23 H Creatinine 1.00 Estimated Creat Clear 50 Estimated GFR 54 L Est GFR ( Amer) 66 Glucose 146 H Lactate 1.2 Calcium 9.5 Magnesium Total Bilirubin 0.2 AST 48 H ALT 37 Alkaline Phosphatase 134 H C-Reactive Protein 113.3 H Total Protein 7.4 Albumin 4.0 Globulin 3.4 H Albumin/Globulin Ratio 1.2 Procalcitonin Urine Color Urine Appearance Urine pH Ur Specific [place] Urine Protein Urine Glucose (UA) Urine Ketones Urine Blood Urine Nitrate Urine Bilirubin Urine Urobilinogen Ur Leukocyte Esterase Urine RBC Urine WBC Ur Squamous Epith Cells Urine Bacteria Urine Mucus SARS-CoV-2 (PCR) Influenza A Untype (PCR) Influenza Type B (PCR) 03/27/21 03/27/21 03/27/21 19:56 19:56 19:56 WBC RBC Hgb Hct MCV MCH MCHC RDW Plt Count MPV Neut % (Auto) Lymph % (Auto) [place] % (Auto) Eos % (Auto) Baso % (Auto) Neut # (Auto) Lymph # (Auto) [place] # (Auto) Eos # (Auto) Baso # (Auto) ESR > 140 H D-Dimer Sodium Potassium Chloride Carbon Dioxide Anion Gap BUN Creatinine Estimated Creat Clear Estimated GFR Est GFR ( Amer) Glucose Lactate 4.0 H Calcium Magnesium Total Bilirubin AST ALT Alkaline Phosphatase C-Reactive Protein Total Protein Albumin Globulin Albumin/Globulin Ratio Procalcitonin Urine Color Urine Appearance Urine pH Ur Specific [place] Urine Protein Urine Glucose (UA) Urine Ketones Urine Blood Urine Nitrate Urine Bilirubin Urine Urobilinogen Ur Leukocyte Esterase Urine RBC Urine WBC Ur Squamous Epith Cells Urine Bacteria Urine Mucus SARS-CoV-2 (PCR) Detected A Influenza A Untype (PCR) Not detected Influenza Type B (PCR) Not detected 03/27/21 03/27/21 03/28/21 19:56 21:00 06:31 WBC 4.5 L RBC 3.54 L Hgb 10.7 L Hct 34.0 L MCV 96.1 MCH 30.3 MCHC 31.5 L RDW 15.1 Plt Count 418 MPV 8.2 Neut % (Auto) 80.7 H Lymph % (Auto) 15.2 [place] % (Auto) 3.6 Eos % (Auto) 0.0 L Baso % (Auto) 0.5 Neut # (Auto) 3.6 Lymph # (Auto) 0.7 [place] # (Auto) 0.2 Eos # (Auto) 0.0 Baso # (Auto) 0.0 ESR D-Dimer Sodium Potassium Chloride Carbon Dioxide Anion Gap BUN Creatinine Estimated Creat Clear Estimated GFR Est GFR ( Amer) Glucose Lact
--- NOTE | 2021-03-29 16:58 | PC.NURSE ---
sputum cup left at bedside. pt instructed to how to use the sputum cup.
== END 2021-03-29 16:52 | DRG 177 ==
LOC: ER 20:41 → 2ND 23:05
PROVIDERS: Internal Medicine Pulmonary Disease; Admitting Provider Emergency Medicine; Emergency Provider Emergency Medicine; PCP Emergency Medicine; Visit Provider Emergency Medicine
DX: U07.1 COVID-19 (principal); J12.82 Pneumonia due to coronavirus disease 2019; J96.01 Acute respiratory failure with hypoxia; W19.XXXA Unspecified fall, initial encounter; Z85.43 Personal history of malignant neoplasm of ovary; Z87.891 Personal history of nicotine dependence; I10 Essential (primary) hypertension; F32.9 Major depressive disorder, single episode, unspecified
CPT/HCPCS: 36415; 70450; 71045; 72125; 72170; 73562; 80048; 80053; 81001; 83605; 83735; 84145; 85025; 85378; 85651; 86140; 87040; 93306; 94640; 96365; 96366; 96375; 97110; 97162; 97166; 97530; 99284; C9803; J1956; J2405; U0003; U0005

== ENCOUNTER 2021-08-17 16:43 | Emergency (ER) | payer MEDICARE, MEDICAID, SELFPAY ==
[2021-08-17 16:44] VITALS: BP 127/72; PULSE 81; RESP 16; TEMP 36.8; O2SAT 94; BMI 26.6
--- NOTE | 2021-08-17 17:00 | XR_ITS ---
PROCEDURE INFORMATION: Exam: XR Chest Exam date and time: 08/17/2021 5:07 PM Age: 75 years old Clinical indication: Shortness of breath; Additional info: SOB TECHNIQUE: Imaging protocol: XR of the chest. Portable AP exam 5:12 p.m. Views: 1 view. COMPARISON: CR XR CHEST PORTABLE 03/29/2021 1:27 PM FINDINGS: Lungs: There is chronic interstitial prominence and subsegmental atelectasis in the lower lungs, when compared with the previous exam from March. No focal consolidation. Mild pulmonary hyperinflation. Pleural spaces: Unremarkable. No significant pleural effusion. No pneumothorax. Heart/Mediastinum: Cardiac silhouette appears within upper limits normal, considering portable AP film technique. Vasculature: Calcified plaque in the aortic arch. Bones/joints: There are spinal degenerative changes, with multilevel disc narrrowing and spondylosis. IMPRESSION: 1. No acute findings compared with 03/29/2021. 2. Chronic lower pulmonary interstitial prominence, mild hyperinflation. No consolidation.
--- NOTE | 2021-08-17 17:30 | ECG_ITS ---
APPROVED REPORT Exam: Resting ECG HR:74 bpm ECG Measurements Heart Rate 74 AXES AK 178 P 66 QRSd 97 QRS 29 QT 376 T 48 QTc 403 Conclusion SINUS RHYTHM NORMAL ECG UNCONFIRMED REPORT Electronically signed by : Rodríguez Caceres MD 08/20/2021 22:21:34
[2021-08-17 18:30] VITALS: BP 131/71; PULSE 71; O2SAT 93
[2021-08-17 18:36] LABS: Basophils # 0.1 K/mm3 (0-0.2); Basophils % 0.6 % (0.1-2.0); Eosinophils # 0.2 K/mm3 (0.0-0.4); Eosinophils % 1.5 % (0.1-12.0); Hematocrit 34.9 % (37.0-47.0); Hemoglobin 11.6 g/dL (12.2-16.2); Lymphocytes # 1.4 K/mm3 (0.7-4.5); Lymphocytes % 14.5 % (10-50); Mean Corpuscular HGB Conc 33.3 g/dL (31.8-35.4); Mean Corpuscular Hemoglobin 29.2 pg (27.0-31.2); Mean Corpuscular Volume 87.8 fl (81-99); Mean Platelet Volume 8.2 fl (7.4-10.4); Monocytes # 0.5 K/mm3 (0.1-1.0); Monocytes % 4.8 % (1.7-9.3); Neutrophils # 7.4 K/mm3 (1.8-7.8); Neutrophils % 78.6 % (37.0-80.0); Platelet Count 418 K/mm3 (142-424); Red Blood Count 3.97 M/mm3 (4.20-5.40); Red Cell Distribution Width 16.7 % (11.5-17.5); White Blood Count 9.4 K/mm3 (4.8-10.8)
--- NOTE | 2021-08-17 18:36 | HMH.EDGENADL ---
ED Disposition Clinical Impression: Weakness, Effusion, left knee, Arthritis of knee Disposition: Home, Self-Care Condition on Discharge: Good Instructions: DI for Osteoarthritis, DI for Knee Effusion, How to Use a Knee Immobilizer Additional Instructions: Knee immobilizer Ibuprofen or Tylenol for pain. Follow-up with orthopedics, Dr. Tejada, for left knee pain and effusion. On Thursday to make appointment. With primary care provider for weakness. Referrals: Bill Devries MD [Primary Care Provider] - Regis Tejada JR, MD [Physician] - - Critical Care Critical Care Time: No Attestation: On 08/17/21, the high probability of a clinically significant, sudden or life threatening deterioration of the following system(s) required my full and direct attention, intervention and personal management. The time I documented below is in addition to time spent performing reported procedures but includes the following listed in this critical care notation. Medical Decision Making - Medical Records Medical records reviewed: Yes: I reviewed the patient's medical records. MR Comment: Reviewed discharge summary from admission to this hospital in March. She did have a left knee x-ray at that time which showed nothing acute. - Speedy Inquiry Pt receiving controlled substance: No Vital Signs: 08/17/21 16:44 08/17/21 18:30 08/17/21 19:00 Temperature 98.2 F Temperature Source Oral Pulse Rate 71 73 Pulse Rate [Radial] 81 Respiratory Rate 16 Blood Pressure 131/71 123/79 Blood Pressure [Right Arm] 127/72 Blood Pressure Mean [Right Arm] 90 Blood Pressure Position [Right Arm] Sitting 02 Sat by Pulse Oximetry 94 L 93 L 94 L Oxygen Delivery Method Room Air 08/17/21 19:30 Temperature Temperature Source Pulse Rate 76 Pulse Rate [Radial] Respiratory Rate Blood Pressure 134/71 Blood Pressure [Right Arm] Blood Pressure Mean [Right Arm] Blood Pressure Position [Right Arm] 02 Sat by Pulse Oximetry 94 L Oxygen Delivery Method - Lab Data Lab Results 08/17/21 18:10: WBC 9.4, RBC 3.97 L, Hgb 11.6 L, Hct 34.9 L, MCV 87.8, MCH 29.2, MCHC 33.3, RDW 16.7, Plt Count 418, MPV 8.2, Neut % (Auto) 78.6, Lymph % (Auto) 14.5, [place] % (Auto) 4.8, Eos % (Auto) 1.5, Baso % (Auto) 0.6, Neut # (Auto) 7.4, Lymph # (Auto) 1.4, [place] # (Auto) 0.5, Eos # (Auto) 0.2, Baso # (Auto) 0.1 08/17/21 18:10: Sodium 137, Potassium 7.0 H*, Chloride 104, Carbon Dioxide 28, Anion Gap 12.0, BUN 24 H, Creatinine 0.80, Estimated Creat Clear 57, Estimated GFR 70, Est GFR ( Amer) 85, Glucose 115 H, Calcium 9.6, Total Bilirubin 1.1, AST 52 H, ALT 21, Alkaline Phosphatase 119, Troponin I < 0.01, Total Protein 8.2 D, Albumin 4.1, Globulin 4.1 H, Albumin/Globulin Ratio 1.0 L 08/17/21 18:56: Potassium 3.4 L D Result diagrams: 08/17/21 18:10 08/17/21 18:56 Orders (Tests/Meds): ORDERS Category Date Time Status Troponin I Q3H Lab 08/17/21 21:15 Ordered Troponin I Q3H Lab 08/18/21 00:15 Ordered - Radiology Data #1 Image(s): Chest, Knee Image Reviewed: Yes I have reviewed radiologist's interpretation PROCEDURE INFORMATION: Exam: XR Chest Exam date and time: 08/17/2021 5:07 PM Age: 75 years old Clinical indication: Shortness of breath; Additional info: SOB TECHNIQUE: Imaging protocol: XR of the chest. Portable AP exam 5:12 p.m. Views: 1 view. COMPARISON: CR XR CHEST PORTABLE 03/29/2021 1:27 PM FINDINGS: Lungs: There is chronic interstitial prominence and subsegmental atelectasis in the lower lungs, when compared with the previous exam from March. No focal consolidation. Mild pulmonary hyperinflation. Pleural spaces: Unremarkable. No significant pleural effusion. No pneumothorax. Heart/Mediastinum: Cardiac silhouette appears within upper limits normal, considering portable AP film technique. Vasculature: Calcified plaque in the aortic arch. Bones/joints: There are spinal deg
[2021-08-17 18:38] LABS: Chloride 104 mmol/L (98-107); Sodium 137 mmol/L (136-145)
[2021-08-17 18:40] LABS: Blood Urea Nitrogen 24 mg/dl (7-17); Creatinine Clearance Estimated 57 mL/min (50-200); Estimated Glomerular Filt Rate 70 ml/min (>60); GFR (African American) 85 ML/MIN (>60)
[2021-08-17 18:41] LABS: Alanine Aminotransferase 21 U/L (12-78); Albumin Level 4.1 g/dl (3.5-5.0); Alkaline Phosphatase 119 U/L (38-126); Aspartate Amino Transferase 52 U/L (14-36); Bilirubin,Total 1.1 mg/dl (0.2-1.3); Calcium 9.6 mg/dl (8.4-10.2); Carbon Dioxide 28 mmol/L (22.0-30.0); Globulin 4.1 g/dL (1.3-3.2); Glucose 115 mg/dl (74-100); Total Protein,Serum 8.2 g/dl (6.3-8.2)
--- NOTE | 2021-08-17 18:49 | XR_ITS ---
PROCEDURE INFORMATION: Exam: XR Left Knee Exam date and time: 08/17/2021 6:58 PM Age: 75 years old Clinical indication: Pain and injury or trauma; Fall; Swelling (edema); Knee; Left; Injury details: PT states that she fell 3-4 days ago; Additional info: Pain and swelling TECHNIQUE: Imaging protocol: XR Left knee. Views: 3 views. COMPARISON: CR XR KNEE LT 3V 03/27/2021 8:12 PM FINDINGS: Bones/joints: Patchy demineralization of bones, probably benign osteopenia in a 75-year-old. There is a tiny cortical erosion/cystic change along the medial margin of the tibial plateau seen on series 3, questionably present on the prior study but more prominent on the current exam, and some possible erosive changes along the posterior tibial plateau seen on lateral series 4. No acute appearing fracture or dislocation. Moderate knee joint space narrowing suggesting underlying chondromalacia. Minimal femoral periarticular spurs. Large knee joint effusion. Patellofemoral joint otherwise unremarkable. Soft tissues: Some calcified atherosclerotic plaques in the popliteal artery and proximal calf. Prominent medial soft tissue swelling at the knee.No radiopaque foreign bodies seen. IMPRESSION: 1. No acute fracture or dislocation. 2. Large knee joint effusion. 3. Mild marginal erosions of the medial tibial plateau, and moderate knee joint space narrowing. Correlate for erosive arthropathy such as rheumatoid disease, differential would include a septic joint, correlate clinically to exclude infection. 4. Medial periarticular soft tissue swelling, correlate for contusion. 5. Osteopenia. 6. Atherosclerotic disease.
--- NOTE | 2021-08-17 18:51 | PC.NURSE ---
Jodie from lab called critical potassium 7.0 , confirmed and verified, given to ER
[2021-08-17 18:53] LABS: Troponin I < 0.01 ng/ml (0.00-0.034)
[2021-08-17 19:00] VITALS: BP 123/79; PULSE 73; O2SAT 94
[2021-08-17 19:14] LABS: Potassium 3.4 mmoL/L (3.5-5.1)
[2021-08-17 19:30] VITALS: BP 134/71; PULSE 76; O2SAT 94
[2021-08-17 20:27] VITALS: BP 141/73; PULSE 85; RESP 20; TEMP 36.8; O2SAT 95
--- NOTE | 2021-08-17 20:28 | PC.NURSE ---
attempted to reach [place] x3, contacted dispatch and requested they send an officer down to notify them that patient is ready to be discharged
== END 2021-08-17 22:47 | disposition home or self-care (01) ==
PROVIDERS: Emergency Provider Emergency Medicine; PCP Emergency Medicine
DX: M25.562 Pain in left knee (principal); M25.462 Effusion, left knee; R06.02 Shortness of breath; R53.1 Weakness; E87.5 Hyperkalemia; M85.80 Other specified disorders of bone density and structure, unspecified site; I70.90 Unspecified atherosclerosis; Z79.899 Other long term (current) drug therapy; Z87.891 Personal history of nicotine dependence; Z82.49 Family history of ischemic heart disease and other diseases of the circulatory system; Z80.9 Family history of malignant neoplasm, unspecified
CPT/HCPCS: 71045; 73562; 80053; 84132; 84484; 85025; 93005; 99285

== ENCOUNTER → 2021-11-15 13:18 | Outpatient (CLI) | payer MEDICARE, MEDICAID, SELFPAY ==
--- NOTE | 2021-11-15 13:24 | XR_ITS ---
FINAL REPORT CLINICAL HISTORY: hip pain FINDINGS: 2 views of the left hip were obtained. There is no acute fracture or dislocation. There are mild degenerative changes. There are no soft tissue abnormalities. IMPRESSION: Mild degenerative change. Reviewed, Interpreted and Dictated by Joaquín Ceballos III, MD Transcribed by Raad Najera Authenticated and [facility]
--- NOTE | 2021-11-15 13:24 | XR_ITS ---
FINAL REPORT CLINICAL HISTORY: hip pain FINDINGS: 2 views of the right hip and an AP pelvis were obtained. There is no acute fracture or dislocation. There is mild degenerative change of both hips. There are no soft tissue abnormalities. IMPRESSION: Mild degenerative change. Reviewed, Interpreted and Dictated by Joaquní Ceballos III, MD Transcribed by Raad Najera Authenticated and . [facility]
== END ==
PROVIDERS: PCP Emergency Medicine; Visit Provider Orthopaedic Surgery
DX: M25.552 Pain in left hip (principal); M25.551 Pain in right hip
CPT/HCPCS: 73502

== ENCOUNTER 2021-11-26 22:09 | Observation (INO) | payer MEDICARE, MEDICAID, SELFPAY ==
[2021-11-26 22:20] VITALS: BP 104/61; PULSE 72; RESP 16; TEMP 36.9; O2SAT 95; BMI 28.1
[2021-11-26 22:30] VITALS: BP 104/61; PULSE 72; O2SAT 94
--- NOTE | 2021-11-26 22:30 | PC.NURSE ---
Dr. Devries notified of critical potassium
--- NOTE | 2021-11-26 22:48 | CT_ITS ---
PROCEDURE INFORMATION: Exam: CT Abdomen And Pelvis Without Contrast Exam date and time: 11/26/2021 11:29 PM Age: 76 years old Clinical indication: Nausea and vomiting; Additional info: Nausea/ vomiting TECHNIQUE: Imaging protocol: Computed tomography of the abdomen and pelvis without contrast. Radiation optimization: All CT scans at this facility use at least one of these dose optimization techniques: automated exposure control; mA and/or kV adjustment per patient size (includes targeted exams where dose is matched to clinical indication); or iterative reconstruction. COMPARISON: CR XR HIP LT 2-3V W/PELVIS 11/15/2021 1:27 PM FINDINGS: Lungs: Minimal bibasilar atelectasis or scarring. Heart: Atherosclerotic calcification of the visualized right coronary artery and distal thoracic aorta. Liver: Mild hepatomegaly. Gallbladder and bile ducts: Normal Pancreas: Normal. Spleen: Normal. Adrenal glands: Normal. No mass. Kidneys and ureters: Normal. Stomach and bowel: Colonic diverticulosis. Several loops of nondilated, gas and fluid-filled small bowel, which is a nonspecific finding, but can be seen with enteritis. Appendix: No evidence of appendicitis. Intraperitoneal space: Unremarkable. No free air. No significant fluid collection. Vasculature: Atherosclerotic disease of the abdominal aorta and iliac arteries, with infrarenal abdominal aortic aneurysm measuring 3.8 cm in diameter. No evidence of leakage or rupture. Lymph nodes: Unremarkable. No enlarged lymph nodes. Urinary bladder: Unremarkable as visualized. Reproductive: Uterus is surgically absent. Bones/joints: Multilevel thoracolumbar spine degenerative disc space narrowing and osteophyte formation. Soft tissues: Normal. IMPRESSION: Several loops of nondilated, gas and fluid-filled small bowel, which is a nonspecific finding, but can be seen with enteritis.
--- NOTE | 2021-11-26 22:49 | HMH.EDNVD ---
Discharge Plan Disposition Patient Disposition: Admitted as Observation Chief Complaint: Nausea/Vomiting/Diarrhea Clinical Impressions Clinical Impression: Enteritis, Depression, SCOTT (acute kidney injury), AAA (abdominal aortic aneurysm) without rupture, Overweight (BMI 25.0-29.9) Discharge ED Provider: Bill Devries Nausea/Vomiting/Diarrhea HPI General Chief complaint: Nausea/Vomiting/Diarrhea Stated complaint: vomiting Time Seen by Provider: 11/26/21 22:49 Mode of Arrival: EMS Source of Information: Patient, EMS and Medical Record Limitations: No Limitations Description of Symptoms (Recalled from ER Triage Doc. by RN): Pt arrived via ems, per Dimitris Downing, pt has had nausea and vomiting since 1430 this afternoon. Pt states symptoms have been going on for greater than a week. History of Present Illness HPI Narrative: sent from nursing home by ems for vomiting and diarrhea which started this afternoon - MD complaint: vomiting and diarrhea Onset (ago): day(s) Associated Abdominal Pain: Yes Location of pain: diffuse Severity: moderate Associated symptoms: denies other symptoms Related Data Home Medications Medication Instructions Recorded Confirmed fluoxetine 40 mg capsule 40 mg PO DAILY Depression 03/27/21 11/15/21 hydrochlorothiazide 25 mg tablet 25 mg PO DAILY Hypertension 03/27/21 11/15/21 metoprolol tartrate 25 mg tablet 12.5 mg PO BID Hypertension 03/27/21 11/15/21 olanzapine 7.5 mg tablet 7.5 mg PO HS Anxiety 03/27/21 11/15/21 melatonin 5 mg tablet 5 mg PO HS Insomnia 03/28/21 11/15/21 Previous Rx's Medication Instructions Recorded dexamethasone 4 mg tablet 6 mg PO DAILY 5 days #5 tabs 03/29/21 levofloxacin 500 mg tablet 500 mg PO DAILY 5 days #5 tabs 03/29/21 Allergies Allergy/AdvReac Type Severity Reaction Status Date / Time No Known Allergies [facility] Ver[facility]15/21 13:54 [facility] Social History Smoking Status: Current every day smoker tobacco type: cigarettes packs per day: 1 alcohol intake: never current occupational status: retired Travel in the last 8 weeks: None household members: other housing: assisted living facility ROS Obtained: Yes All systems reviewed & no additional complaints except as documented Physical Exam General General appearance: alert Head Head exam: normocephalic Eye Eye exam: Present PERRL and EOMI; Absent scleral icterus ENT ENT exam: Present mucous membranes dry Neck Neck exam: Present full ROM and trachea midline Respiratory Respiratory exam: Present normal lung sounds bilaterally Cardiovascular Cardiovascular exam: Present regular rate and systolic murmur Abdominal Exam Abdominal exam: Present soft and tenderness; Absent guarding Abdominal tenderness: Present epigastrium and mild Extremities Exam Extremities exam: Absent tenderness Neurological Exam Neurological exam: Present alert, oriented X3 and CN II-XII intact Psychiatric Psychiatric exam: Present normal affect Skin Skin exam: Absent rash Medical Decision Making Medical Records Medical records reviewed: Yes I reviewed the patient's medical records. Speedy Inquiry Pt receiving controlled substance: No Vital Signs: 11/26/21 22:20 11/26/21 22:30 11/26/21 23:30 Temperature 98.4 F Temperature Source Oral Pulse Rate 72 72 Pulse Rate [Apical] 72 Respiratory Rate 16 Blood Pressure 104/61 L 104/48 L Blood Pressure [Right Arm] 104/61 L Blood Pressure Mean [Right Arm] 75 Blood Pressure Source [Right Arm] Automatic Cuff Blood Pressure Position [Right Arm] Sitting 02 Sat by Pulse Oximetry 95 94 L 94 L Oxygen Delivery Method Room Air Room Air Room Air 11/27/21 00:00 Temperature Temperature Source Pulse Rate 67 Pulse Rate [Apical] Respiratory Rate Blood Pressure 95/70 L Blood Pressure [Right Arm] Blood Pressure Mean [Right Arm] Blood Pressure Source [Right Arm] Blood Pressure Position [Right
--- NOTE | 2021-11-26 22:50 | XR_ITS ---
PROCEDURE INFORMATION: Exam: XR Chest Exam date and time: 11/26/2021 11:49 PM Age: 76 years old Clinical indication: Other: N/v; Additional info: Nausea vomiting. TECHNIQUE: Imaging protocol: Radiologic exam of the chest. Views: 2 views. COMPARISON: CR XR CHEST PORTABLE 08/17/2021 5:07 PM FINDINGS: Lungs: Minimal bibasilar atelectasis or scarring. Decreased vascularity within the upper lobes, suggesting centrilobular emphysema. Pleural spaces: Unremarkable. No pleural effusion. No pneumothorax. Heart/Mediastinum: Normal. Vasculature: Atherosclerotic vascular disease. Bones/joints: Multilevel thoracic spine degenerative disc space narrowing and osteophyte formation. IMPRESSION: No acute cardiopulmonary abnormality.
--- NOTE | 2021-11-26 22:50 | PC.NURSE ---
Pt up to bathroom with minimal assistance.
--- NOTE | 2021-11-26 23:07 | PC.NURSE ---
s/w pt's sister, Ivis Damon, and gave pt update and POC. Pt stated it was ok to update her.
[2021-11-26 23:12] LABS: Basophils # 0.1 K/mm3 (0-0.2); Basophils % 0.6 % (0.1-2.0); Chloride 95 mmol/L (98-107); Eosinophils # 0.2 K/mm3 (0.0-0.4); Eosinophils % 1.2 % (0.1-12.0); Hematocrit 39.9 % (37.0-47.0); Hemoglobin 12.7 g/dL (12.2-16.2); Lymphocytes # 1.4 K/mm3 (0.7-4.5); Lymphocytes % 8.4 % (10-50); Mean Corpuscular HGB Conc 31.8 g/dL (31.8-35.4); Mean Corpuscular Hemoglobin 30.3 pg (27.0-31.2); Mean Corpuscular Volume 95.3 fl (81-99); Mean Platelet Volume 7.6 fl (7.4-10.4); Monocytes # 0.9 K/mm3 (0.1-1.0); Monocytes % 5.5 % (1.7-9.3); Neutrophils # 14.2 K/mm3 (1.8-7.8); Neutrophils % 84.3 % (37.0-80.0); Platelet Count 379 K/mm3 (142-424); Red Blood Count 4.18 M/mm3 (4.20-5.40); Red Cell Distribution Width 15.9 % (11.5-17.5); Sodium 137 mmol/L (136-145); White Blood Count 16.9 K/mm3 (4.8-10.8)
--- NOTE | 2021-11-26 23:12 | PC.NURSE ---
Pt unable to provide urine sample at this time. Pt given warm blanket for comfort.
[2021-11-26 23:14] LABS: Alanine Aminotransferase 35 U/L (12-78); Alkaline Phosphatase 187 U/L (38-126); Aspartate Amino Transferase 32 U/L (14-36); Bilirubin,Total 0.2 mg/dl (0.2-1.3); Blood Urea Nitrogen 79 mg/dl (7-17); Creatinine Clearance Estimated 29 mL/min (50-200); Estimated Glomerular Filt Rate 24 ml/min (>60); GFR (African American) 29 ML/MIN (>60)
[2021-11-26 23:15] LABS: Albumin Level 4.3 g/dl (3.5-5.0); Albumin/Globulin Ratio 1.3 (1.1-1.8); Anion Gap 20.5 mEq/L (5-15); Calcium 8.6 mg/dl (8.4-10.2); Carbon Dioxide 24 mmol/L (22.0-30.0); Globulin 3.3 g/dL (1.3-3.2); Glucose 148 mg/dl (74-100); Lipase 36 U/L (23-300); Total Protein,Serum 7.6 g/dl (6.3-8.2)
[2021-11-26 23:18] LABS: Potassium 2.5 mmoL/L (3.5-5.1)
[2021-11-26 23:20] LABS: MANUAL DIFFERENTIAL MANUAL DIFFERENTIAL (MANUAL DIFF)
[2021-11-26 23:30] VITALS: BP 104/48; PULSE 72; O2SAT 94
[2021-11-26 23:30] LABS: Troponin I < 0.01 ng/ml (0.00-0.034)
[2021-11-27] VITALS (7 sets, daily range): BP systolic 95–125; BP diastolic 61–72; PULSE 53–83; RESP 16–18; TEMP 36.4–36.7; O2SAT 91–99; BMI 25.3
[2021-11-27 00:12] LABS: Microscopic, Urine URINE MICROSCOPIC (MICROSCOPIC)
[2021-11-27 00:36] LABS: Coronavirus 19, PCR Not Detected (NotDetected); Influenza A, PCR Not Detected (NotDetected); Influenza B, PCR Not Detected (NotDetected)
[2021-11-27 00:39] LABS: Lymphocytes % 12 % (10-50); Monocytes % 4 % (2-9); Neutrophils % 84 % (42-76); Total Cells Counted 100
[2021-11-27 00:40] LABS: Platelet Estimate Normal; RBC Morphology Normal
[2021-11-27 00:49] LABS: Appearance,Urine CLEAR (Clear); Bilirubin,Urine Negative (Negative); Blood, Urine Negative (Negative); Color,Urine YELLOW (Yellow); Glucose,Urine (UA) Negative (Negative); Ketones,Urine TRACE (Negative); Leukocyte Esterase,Urine Negative (Negative); Nitrate,Urine Negative (Negative); Protein,Urine Negative (Negative); Specific Gravity, Urine 1.015 (1.005-1.030); Urobilinogen,Urine 0.2 EU/dl (0.2)
[2021-11-27 00:50] LABS: Bacteria,Urine 1+ /lpf
[2021-11-27 01:09] LABS: Lactic Acid 2.5 mmol/L (0.7-2.1)
--- NOTE | 2021-11-27 01:15 | PC.NURSE ---
Gave pt update to Wilmar from [employer].
[2021-11-27 02:10] LABS: Troponin I < 0.01 ng/ml (0.00-0.034)
--- NOTE | 2021-11-27 03:37 | PC.NURSE ---
pt to floor via wheel chair [id number].
[2021-11-27 04:39] LABS: Reflex Lactic Add Lactic Reflex
--- NOTE | 2021-11-27 04:59 | PC.NURSE ---
attempted to get labs at this time, assisted by Emmy Oropeza, unable to get labs drawn at this time
[2021-11-27 05:33] LABS: Lactic Acid Follow Up (RFLX 1) 1.1 mmol/L (0.7-2.1)
[2021-11-27 05:57] LABS: Basophils # 0.1 K/mm3 (0-0.2); Basophils % 0.7 % (0.1-2.0); Eosinophils # 0.3 K/mm3 (0.0-0.4); Hematocrit 39.1 % (37.0-47.0); Hemoglobin 12.3 g/dL (12.2-16.2); Lymphocytes # 1.7 K/mm3 (0.7-4.5); Lymphocytes % 12.9 % (10-50); Mean Corpuscular HGB Conc 31.5 g/dL (31.8-35.4); Mean Corpuscular Volume 95.4 fl (81-99); Mean Platelet Volume 7.4 fl (7.4-10.4); Monocytes # 0.9 K/mm3 (0.1-1.0); Monocytes % 6.7 % (1.7-9.3); Neutrophils # 10.3 K/mm3 (1.8-7.8); Neutrophils % 77.8 % (37.0-80.0); Platelet Count 327 K/mm3 (142-424); White Blood Count 13.2 K/mm3 (4.8-10.8)
[2021-11-27 06:04] LABS: Anion Gap 16.6 mEq/L (5-15); Blood Urea Nitrogen 76 mg/dl (7-17); Calcium 8.1 mg/dl (8.4-10.2); Carbon Dioxide 23 mmol/L (22.0-30.0); Chloride 100 mmol/L (98-107); Creatinine Clearance Estimated 33 mL/min (50-200); Estimated Glomerular Filt Rate 32 ml/min (>60); GFR (African American) 38 ML/MIN (>60); Glucose 111 mg/dl (74-100); Sodium 137 mmol/L (136-145)
[2021-11-27 06:10] LABS: Potassium 2.6 mmoL/L (3.5-5.1)
--- NOTE | 2021-11-27 06:11 | PC.NURSE ---
critical potassium of 2.6 reported, improved from 2.5 from ED
[2021-11-27 06:21] LABS: Troponin I < 0.01 ng/ml (0.00-0.034)
--- NOTE | 2021-11-27 07:23 | P.CONPHA_ITS ---
[facility] Pharmacy VTE Monitoring Patient Demographics Admission date: 11/27/21 Report Date: 11/27/21 Time: 07:23 Patient Allergies No Known Allergies Allergy (Verified 11/27/21 03:13) Height: 1.63 m Weight: 67.33 kg Current Active Problems (Updated 11/27/21 @ 03:19 by Amy Wayne RN) Enteritis (Acute) Depression (Acute) SCOTT (acute kidney injury) (Acute) AAA (abdominal aortic aneurysm) without rupture (Acute) Overweight (BMI 25.0-29.9) (Acute) VTE Risk Labs: VTE Related Lab Results Hgb 12.3 g/dL (12.2-16.2) 11/27/21 05:42 Hct 39.1 % (37.0-47.0) 11/27/21 05:42 Plt Count 327 K/mm3 (142-424) 11/27/21 05:42 BUN 76 mg/dl (7-17) H 11/27/21 05:42 Creatinine 1.60 mg/dl (0.52-1.04) H 11/27/21 05:42 Estimated Creat Clear 33 mL/min (50-200) 11/27/21 05:42 Was VTE Risk Assessment Performed: Yes VTE Score: 6 VTE Risk Level: Moderate Risk Prophylaxis VTE Prophylaxis Ordered?: Yes Types of VTE Prophylaxis: TEDS Knee High Location of Applied Device: Bilateral Lower Extremeties
--- NOTE | 2021-11-27 09:40 | EXP.HP ---
History of Present Illness *Admission Date: 11/27/21 [facility] Medical History Ovarian cancer Surgical History (Updated 11/27/21 @ 03:20 by Amy Wayne RN) History of hysterectomy Family History (Updated 11/27/21 @ 03:20 by Amy Wayne RN) Other No significant family history Social History (Updated 11/27/21 @ 03:21 by Amy Wayne RN) Smoking Status: Current every day smoker tobacco type: cigarettes packs per day: 1 alcohol intake: never current occupational status: retired Travel in the last 8 weeks: None household members: other housing: assisted living facility Meds Home Medications and Allergies Home Medications Medication Instructions Recorded Confirmed Type fluoxetine 40 mg capsule 40 mg PO DAILY Depression 03/27/21 11/27/21 History hydrochlorothiazide 25 mg tablet 25 mg PO DAILY Hypertension 03/27/21 11/27/21 History metoprolol tartrate 25 mg tablet 12.5 mg PO BID Hypertension 03/27/21 11/27/21 History olanzapine 7.5 mg tablet 7.5 mg PO HS Anxiety 03/27/21 11/27/21 History melatonin 5 mg tablet 5 mg PO HS Insomnia 03/28/21 11/27/21 History loperamide 2 mg capsule 2 mg PO Q4H PRN Constipation 11/27/21 11/27/21 History sennosides 8.6 mg tablet (senna) 8.6 mg PO BID constipation 11/27/21 11/27/21 History New Prescriptions to Start Prescriptions: Allergies Allergy/AdvReac Type Severity Reaction Status Date / Time No Known Allergies Allergy Verified 11/27/21 03:13 Exam Data for Last 24 hours Vital signs and Labs for Last 24 Hours: Temp Pulse Resp BP Pulse Ox 97.6 F 69 16 107/61 L 91 L 11/27/21 08:00 11/27/21 08:00 11/27/21 08:00 11/27/21 08:00 11/27/21 08:00 Laboratory Results - last 24 hr 11/26/21 22:25: WBC 16.9 H, RBC 4.18 L, Hgb 12.7, Hct 39.9, MCV 95.3, MCH 30.3, MCHC 31.8, RDW 15.9, Plt Count 379, MPV 7.6, Neut % (Auto) 84.3 H, Lymph % (Auto) 8.4 L, [place] % (Auto) 5.5, Eos % (Auto) 1.2, Baso % (Auto) 0.6, Neut # (Auto) 14.2 H, Lymph # (Auto) 1.4, [place] # (Auto) 0.9, Eos # (Auto) 0.2, Baso # (Auto) 0.1, Total Counted 100, Neutrophils % (Manual) 84 H, Lymphocytes % (Manual) 12, Monocytes % (Manual) 4, Platelet Estimate Normal, RBC Morphology Normal 11/26/21 22:25: Sodium 137, Potassium 2.5 L*, Chloride 95 L, Carbon Dioxide 24, Anion Gap 20.5 H, BUN 79 H, Creatinine 2.00 H, Estimated Creat Clear 29, Estimated GFR 24 L, Est GFR ( Amer) 29 L, Glucose 148 H, Calcium 8.6, Total Bilirubin 0.2, AST 32, ALT 35, Alkaline Phosphatase 187 H, Troponin I < 0.01, Total Protein 7.6, Albumin 4.3, Globulin 3.3 H, Albumin/Globulin Ratio 1.3, Lipase 36 11/27/21 00:00: Lactate 2.5 H 11/27/21 00:01: Urine Color Yellow, Urine Appearance Clear, Urine pH 6.0, Ur Specific [place] 1.015, Urine Protein Negative, Urine Glucose (UA) Negative, Urine Ketones Trace, Urine Blood Negative, Urine Nitrate Negative, Urine Bilirubin Negative, Urine Urobilinogen 0.2, Ur Leukocyte Esterase Negative, Urine RBC None, Urine WBC 3-5, Ur Squamous Epith Cells 5-10, Urine Bacteria 1+ 11/27/21 00:29: SARS-CoV-2 (PCR) Not detected, Influenza A Untype (PCR) Not detected, Influenza Type B (PCR) Not detected 11/27/21 01:35: Troponin I < 0.01 11/27/21 05:10: Lactate 1.1 11/27/21 05:42: Troponin I < 0.01 11/27/21 05:42: WBC 13.2 H, RBC 4.10 L, Hgb 12.3, Hct 39.1, MCV 95.4, MCH 30.0, MCHC 31.5 L, RDW 16.0, Plt Count 327, MPV 7.4, Neut % (Auto) 77.8, Lymph % (Auto) 12.9, [place] % (Auto) 6.7, Eos % (Auto) 2.0, Baso % (Auto) 0.7, Neut # (Auto) 10.3 H, Lymph # (Auto) 1.7, [place] # (Auto) 0.9, Eos # (Auto) 0.3, Baso # (Auto) 0.1 11/27/21 05:42: Sodium 137, Potassium 2.6 L*, Chloride 100, Carbon Dioxide 23, Anion Gap 16.6 H, BUN 76 H, Creatinine 1.60 H, Estimated Creat Clear 33, Estimated GFR 32 L, Est GFR ( Amer) 38 L D, Glucose 111 H D, Calcium 8.1 L I & O for Last 24 hours: Intake & Output 11/24/21 11/25/21 11/26/21 11/27/21 23:59 23:59 23:59 23
--- NOTE | 2021-11-27 09:44 | SW/DCPLANNER ---
This patient currently resides at [facility]. The plan for this patient per Dr Devries is to return back to [place] today. I have updated Cat reddy/ Isis: no COVID swab is needed prior to discharge and I will arrange [employer].
--- NOTE | 2021-11-27 09:55 | HMH.OTEV ---
OT Inpatient Evaluation Rehab OT IP Evaluation Start: 11/27/21 08:34 Freq: ONCE Status: Complete Protocol: Document 11/27/21 09:50 [facility] (Rec: 11/27/21 09:55 [facility] [id number]) Rehab OT IP Assessment Subjective History Pt oriented x 3 on arrival. Pt agreeable to engage in therapy evaluation. Pt was admitted via ED on 11/27/21 due to Nausea/Vomiting/Diarrhea. Prior to being in the hospital, pt lived at a personal halfway. Pt claims she was independent with feeding, dressing, and bathing . Pt was dependent upon staff to complete all IADLs. Pt reports she did not use a walker during ambulation or functional transfers. Subjective Can I go back to [place]? Pt resting in chair on arrival . Pt completed lower body dressing with sba to doff and don both socks. Pt stood from chair with cga. Pt engaged in funtional transfer with cga . Pt sat back down in chair with cga. Pt was left sitting in chair with call kelly and all other needs in reach. Objective Patient Orientation Person,Place,Birthday Upper Extremity Gross ROM WFL Transfer Training Sit/Stand Transfer Assist Level Contact Guard/Hand Hold Chair Transfer Ability Contact Guard/Hand Hold Chair Transfer Technique Sit to/from Ambulatory Chair Transfer Assistive Devices None Lower Body Dressing Ability Standby Assistance Rehab OT IP prob,goals,plan Problems Date of Evaluation: 11/27/21 Rehab Potential Rehab Potential Innapropriate for Skilled Therapy Discharge Plan OT Discharge Plan At this time, pt appears to be at baseline with functional transfers and ADL independence . Pt can return back to personal halfway once medically stable per physician . Eval Complexity Eval Charge Codes 70277 - Moderate Complexity G Codes G -code Required No
--- NOTE | 2021-11-27 10:10 | HMH.PTEV ---
Physical Therapy Evaluation Rehab PT IP Evaluation Start: 11/27/21 08:33 Freq: ONCE Status: Active Protocol: Document 11/27/21 09:03 [facility] (Rec: 11/27/21 10:10 [facility] [id number]) Subjective/History History History This is the IP initial PT evaluation for Keyla Damon, a 76 y/o female admitted to [facility] 11/26/21 to monitor acute kidney injury and AAA. Written by HERMINIO Arteaga Subjective Subjective Pt reports she lives in intermediate and was not using an AD prior to admission. Rehab PT IP Eval Objective Appearance Patient Behavior Appropriate,Cooperative Patient Orientation Person,Place,Birthday,Year Difficulty following instructions none Speech Pattern Clear,Appropriate,Soft-Spoken Ambulation Patient Able to Ambulate Yes Ambulation Observation IP General Gait Pattern Observation Wide Based Gait,Shuffling Step Ambulation Distance (feet) 5 Ambulation Assistive Device None Ambulation Ability Supervision/Stand by,Contact Guard/Hand Hold Balance Ability to Arise Able, uses arms to help Sitting Balance Leans or slides in chair Standing Balance Steady, wide stance Dynamic Sitting Balance Ability Fair Dynamic Standing Balance Ability Poor Transfers Bed Transfer Ability Independent,Supervision/Stand by Chair Transfer Ability Independent Sit to Stand Bed Transfer Ability Supervision/Stand by,Contact Guard/Hand Hold Rehab PT IP prob,goals,plan Problems Date of Evaluation: 11/27/21 Rehab Potential Rehab Potential Innapropriate for Skilled Therapy Equipment Needs Assistive Devices Rolling / Wheeled Walker Discharge Plan PT Discharge Plan Pt presents with baseline functional mobility and has no need for skilled therapy at this time for remainder of LOS at [facility]. Once medically stable , discharge recommendation is return to personal care intermediate. G -code Required Yes Eval Complexity Eval Charge Codes 89385 - Low Complexity G Codes PT Current Status Self Care PT Current Status Modifier CJ-At least 20% but less than 40% impaired, limited or
--- NOTE | 2021-11-27 13:52 | EXP.HPDC ---
General Admission date:: 11/27/21 Discharge date: 11/27/21 *Admission Date: 11/27/21 *Chief complaint: Nausea/vomiting/diarrhea *History of present illness: 76-year-old female patient presented to the [facility] emergency department via EMS for reports of nausea and vomiting since 2:30 in the afternoon yesterday. [facility] and stated nausea/vomiting/diarrhea for at least a week. [facility] Medical History Ovarian cancer Surgical History (Updated 11/27/21 @ 03:20 by Amy Wayne RN) History of hysterectomy Family History (Updated 11/27/21 @ 03:20 by Amy Wayne RN) Other No significant family history Social History (Updated 11/27/21 @ 03:21 by Amy Wayne RN) Smoking Status: Current every day smoker tobacco type: cigarettes packs per day: 1 alcohol intake: never current occupational status: retired Travel in the last 8 weeks: None household members: other housing: assisted living facility Review of Systems Constitutional Constitutional: Reports system reviewed and no additional complaints, except as documented, Reports fatigue and Denies headache(s) Eyes Eyes: Reports system reviewed and no additional complaints, except as documented, Denies blurry vision and Denies diplopia ENT Ears, Nose, Mouth, and Throat: Reports system reviewed and no additional complaints, except as documented, Denies headache(s) and Denies odynophagia *Cardiovascular Cardiovascular: Reports system reviewed and no additional complaints, except as documented, Denies chest pain at rest and Denies dyspnea on exertion *Respiratory Respiratory: Denies dyspnea on exertion and Denies wheezing *Gastrointestinal Gastrointestinal: Denies coffee ground emesis, Denies hematemesis, Denies hematochezia, Reports loose stools, Reports nausea, Denies odynophagia and Reports vomiting *Genitourinary Genitourinary: Reports system reviewed and no additional complaints, except as documented *Musculoskeletal Musculoskeletal: Reports system reviewed and no additional complaints, except as documented Integumentary/Breasts Skin/Breast: Reports system reviewed and no additional complaints, except as documented, Denies change in pigmentation and Denies new lesions *Neurologic Neurologic: Reports system reviewed and no additional complaints, except as documented, Denies behavioral changes and Denies headache(s) Psychiatric Psychiatric: Reports system reviewed and no additional complaints, except as documented, Denies behavioral changes and Denies hallucinations Endocrine Endocrine: Reports system reviewed and no additional complaints, except as documented and Reports fatigue Hematologic/Lymphatic Hematologic/Lymphatic: Reports system reviewed and no additional complaints, except as documented and Denies easy bruising Allergic/Immunologic Allergic/Immunologic: Reports system reviewed and no additional complaints, except as documented, Denies GI upset with certain foods and Denies wheezing Exam Data for Last 24 hours Vital signs and Labs for Last 24 Hours: Temp Pulse Resp BP Pulse Ox 97.5 F L 76 16 125/64 99 11/27/21 12:00 11/27/21 12:00 11/27/21 12:00 11/27/21 12:00 11/27/21 12:00 Laboratory Results - last 24 hr 11/26/21 22:25: WBC 16.9 H, RBC 4.18 L, Hgb 12.7, Hct 39.9, MCV 95.3, MCH 30.3, MCHC 31.8, RDW 15.9, Plt Count 379, MPV 7.6, Neut % (Auto) 84.3 H, Lymph % (Auto) 8.4 L, [place] % (Auto) 5.5, Eos % (Auto) 1.2, Baso % (Auto) 0.6, Neut # (Auto) 14.2 H, Lymph # (Auto) 1.4, [place] # (Auto) 0.9, Eos # (Auto) 0.2, Baso # (Auto) 0.1, Total Counted 100, Neutrophils % (Manual) 84 H, Lymphocytes % (Manual) 12, Monocytes % (Manual) 4, Platelet Estimate Normal, RBC Morphology Normal 11/26/21 22:25: Sodium 137, Potassium 2.5 L*, Chloride 95 L, Carbon Dioxide 24, Anion Gap 20.5 H, BUN 79 H, Creatinine 2.00 H, Estimated Creat Clear 29, Estimated GFR 24 L,
--- NOTE | 2021-11-27 15:40 | PC.NURSE ---
PT IS RESTING IN BED. TOLERATED SITTING UP IN THE CHAIR FOR SEVERAL HOURS THIS SHIFT. PT ANSWERS QUESTIONS AND FOLLOWS COMMANDS. LUNG SOUNDS CLEAR. ABDOMEN SOFT/NON TENDER WITH ACTIVE BOWEL SOUNDS. SHOWER AND LINEN CHANGE THIS SHIFT. PT WILL BE DISCHARGED BACK TO [facility] AFTER POTASSIUM RUNS ARE COMPLETE. WILL CONTINUE TO MONITOR.
--- NOTE | 2021-11-28 13:22 | CARE MANAGER ---
Contacted home where patient resides. They state she is doing well. Discussed that the MD discontinued HCTZ. They stated they were not aware, but will take care of it. Denies any other questions or concerns at this time. MARIO Henderson
== END 2021-11-27 17:28 | disposition home or self-care (01) ==
LOC: ER 11-27 00:26 → 2ND 11-27 02:57
PROVIDERS: Admitting Provider Emergency Medicine; Emergency Provider Emergency Medicine; PCP Emergency Medicine; Visit Provider Emergency Medicine
DX: N17.9 Acute kidney failure, unspecified (principal); I10 Essential (primary) hypertension; F32.9 Major depressive disorder, single episode, unspecified; I71.4 Abdominal aortic aneurysm, without rupture; F17.210 Nicotine dependence, cigarettes, uncomplicated; Z79.899 Other long term (current) drug therapy; Z20.822 Contact with and (suspected) exposure to COVID-19
CPT/HCPCS: G0378; 71046; 74176; 80048; 80053; 81001; 83605; 83690; 84484; 85007; 85025; 87040; 87077; 87186; 97161; 97166; 99285; C9803; J2405; U0003; U0005

== ENCOUNTER → 2022-02-17 07:46 | Outpatient (CLI) | payer MEDICARE, MEDICAID, SELFPAY ==
--- NOTE | 2022-02-17 07:48 | CA_ITS ---
FINAL REPORT TECHNIQUE: Grayscale, color Doppler and duplex Doppler ultrasound of the kidneys, aorta and renal arteries was performed. Multiple velocities were measured. CLINICAL HISTORY: HTN,SMOKER FINDINGS: Aorta velocity: 79.4 cm/sec Right kidney: 10.2 cm. No evidence of hydronephrosis or mass. Right intrarenal RI: 0.70 Right renal artery velocity: 210 cm/sec. Right RAR (Renal artery-Aortic Ratio): 2.6 Left Kidney: 10.1 cm. No evidence of hydronephrosis or mass. Left intrarenal RI: 0.77 Left renal artery velocity: 77 cm/sec. Left RAR (Renal Artery-Aortic Ratio): 0.97 IMPRESSION: No evidence of significant left renal artery stenosis. Less than 60% right renal artery stenosis. CTA or catheter angiogram would be more sensitive for evaluation of possible renal artery stenosis. Reviewed, Interpreted and Dictated by Joaquín Ceballos III, MD Transcribed by Tracey Ko Authenticated and . [facility]
--- NOTE | 2022-02-17 08:27 | US_ITS ---
FINAL REPORT TECHNIQUE: Ultrasound images of the kidneys and bladder were obtained. CLINICAL HISTORY: I10 - Essential (primary) hypertension FINDINGS: The right kidney measures 8.95 cm in length. It is normal in echogenicity. There is no hydronephrosis. The left kidney measures 8.75 cm in length. It is normal in echogenicity. There is no hydronephrosis. Flow is seen bilaterally. Incidental note is made of a 3.5 cm abdominal aortic aneurysm. IMPRESSION: Abdominal aortic aneurysm, otherwise unremarkable exam. Reviewed, Interpreted and Dictated by Joaquín Ceballos III, MD Transcribed by Alexandra Carrasco Authenticated and [facility]
== END ==
PROVIDERS: PCP Emergency Medicine; Visit Provider Physician Assistant
DX: I10 Essential (primary) hypertension (principal); I71.40 Abdominal aortic aneurysm, without rupture, unspecified; R06.00 Dyspnea, unspecified
CPT/HCPCS: 76770; 93976

== ENCOUNTER 2022-03-02 14:17 | Inpatient (IN) | payer MEDICARE, MEDICAID, SELFPAY ==
[2022-03-02] VITALS (12 sets, daily range): BP systolic 138–159; BP diastolic 46–80; PULSE 75–81; RESP 17–18; TEMP 36.6–36.9; O2SAT 85–97; BMI 28.1; BMI 26.3
--- NOTE | 2022-03-02 14:15 | XR_ITS ---
PROCEDURE INFORMATION: Exam: XR Chest Exam date and time: 03/02/2022 3:13 PM Age: 76 years old Clinical indication: Cough and shortness of breath; Additional info: Cough, shortness of air TECHNIQUE: Imaging protocol: Radiologic exam of the chest. Views: 1 view. COMPARISON: CR XR CHEST 2V 11/26/2021 11:49 PM FINDINGS: Lungs: Patchy airspace opacification of right mid to lower lung zones. Left lung grossly clear. Pleural spaces: Unremarkable. No pleural effusion. No pneumothorax. Heart/Mediastinum: Unremarkable. No cardiomegaly. Bones/joints: Unremarkable. IMPRESSION: Right mid to lower lung zone infiltration.
--- NOTE | 2022-03-02 14:29 | PC.NURSE ---
pts room air sat after transferred from EMS stretcher to ED stretcher was 85%. That was after receiving a duo-neb en route.
[2022-03-02 15:00] LABS: Coronavirus 19, PCR Not Detected (NotDetected); Influenza A, PCR Not Detected (NotDetected); Influenza B, PCR Not Detected (NotDetected)
--- NOTE | 2022-03-02 15:12 | PC.NURSE ---
DEBBIE BARBOSA at
[2022-03-02 15:15] LABS: Basophils % 0.3 % (0.1-2.0); Eosinophils % 0.1 % (0.1-12.0); Hematocrit 36.9 % (37.0-47.0); Hemoglobin 11.4 g/dL (12.2-16.2); Lymphocytes # 0.6 K/mm3 (0.7-4.5); Lymphocytes % 4.6 % (10-50); Mean Corpuscular HGB Conc 30.9 g/dL (31.8-35.4); Mean Corpuscular Hemoglobin 30.1 pg (27.0-31.2); Mean Corpuscular Volume 97.3 fl (81-99); Mean Platelet Volume 8.5 fl (7.4-10.4); Monocytes # 0.5 K/mm3 (0.1-1.0); Monocytes % 4.2 % (1.7-9.3); Neutrophils # 11.2 K/mm3 (1.8-7.8); Neutrophils % 90.9 % (37.0-80.0); Platelet Count 284 K/mm3 (142-424); Red Blood Count 3.79 M/mm3 (4.20-5.40); Red Cell Distribution Width 14.8 % (11.5-17.5); White Blood Count 12.3 K/mm3 (4.8-10.8)
--- NOTE | 2022-03-02 15:16 | HMH.EDGENADL ---
Discharge Plan Disposition Patient Disposition: Admitted As Inpatient Condition: Fair Prescriptions Prescriptions: No Action carvedilol [Coreg] 6.25 mg tablet 6.25 mg PO BID Qty: 60 3RF Rx Instructions: must administer with a meal/food sennosides [senna] 8.6 mg Tablet 8.6 mg PO BID loperamide 2 mg Capsule 2 mg PO Q4H PRN (Reason: Constipation) Rx Instructions: administer after each loose stool until symptoms controlled; do not exceed 8 mg per 24 hrs fluoxetine 40 MG capsule 40 mg PO DAILY olanzapine 7.5 MG tablet 7.5 mg PO HS melatonin 5 MG tablet 5 mg PO HS Referrals Follow up/Referrals: Bill Devries MD [Primary Care Provider] - See instructions Clinical Impressions Clinical Impression: Community acquired pneumonia, Acute on chronic respiratory failure with hypoxia and hypercapnia Discharge ED Provider: Félix Delarosa General Adult HPI General Chief complaint: Shortness of Breath/Dyspnea Stated complaint: SOA Time Seen by Provider: 03/02/22 15:07 History of Present Illness HPI narrative: Brought in by ambulance from [facility]. Patient states that she has had a cough and difficulty breathing for 2 weeks, getting worse. Small amounts of sputum. No rhinorrhea or sore throat. She has been some vomiting and diarrhea. She thinks she has had a fever but does not know what her temperature has been. Denies chest pain. She says that she is a smoker smokes very little . Pulse ox in the 70s when picked up by EMS, anny to the 80s after nebulizer treatment. Related Data Home Medications Medication Instructions Recorded Confirmed fluoxetine 40 mg capsule 40 mg PO DAILY Depression 03/27/21 02/14/22 olanzapine 7.5 mg tablet 7.5 mg PO HS Anxiety 03/27/21 02/14/22 melatonin 5 mg tablet 5 mg PO HS Insomnia 03/28/21 02/14/22 loperamide 2 mg capsule 2 mg PO Q4H PRN Constipation 11/27/21 02/14/22 sennosides 8.6 mg tablet (senna) 8.6 mg PO BID constipation 11/27/21 02/14/22 Previous Rx's Medication Instructions Recorded carvedilol 6.25 mg tablet (Coreg) 6.25 mg PO BID #60 tabs 02/12/22 Allergies Allergy/AdvReac Type Severity Reaction Status Date / Time No Known Allergies Allergy Verified 02/14/22 08:58 [facility] Disclaimer: The information contained in this section may have been updated after the patient was seen, as this information can be updated by other users. Medical History Arthritis of knee COVID-19 Diastolic dysfunction Dyspnea Effusion, left knee Elevated C-reactive protein (CRP) Elevated erythrocyte sedimentation rate [place] HTN (hypertension) HTN (hypertension) Lacunar infarction Ovarian cancer Weakness Surgical History History of hysterectomy Family History Other No significant family history Social History Smoking Status: Unknown if ever smoked alcohol intake: never current occupational status: retired Travel in the last 8 weeks: None household members: other housing: assisted living facility ROS Obtained: Yes All systems reviewed & no additional complaints except as documented Constitutional Constitutional: Reports fever(s), Denies headache(s) and Denies weakness ENT Ears, Nose, Mouth, and Throat: Denies headache(s), Denies nasal discharge and Denies sore throat Cardiovascular Cardiovascular: Denies chest pain Respiratory Respiratory: Reports shortness of breath and Reports cough Gastrointestinal Gastrointestingal: Reports diarrhea and vomiting; Denies abdominal pain or constipation Genitourinary Female Genitourinary: Denies difficulty voiding, Denies dysuria and Denies flank pain Musculoskeletal Musculoskeletal: Denies numbness Neurologic Neurologic: Denies headache(s), Denies
[2022-03-02 15:18] LABS: MANUAL DIFFERENTIAL MANUAL DIFFERENTIAL (MANUAL DIFF)
[2022-03-02 15:21] LABS: Alanine Aminotransferase 27 U/L (12-78); Albumin Level 3.9 g/dl (3.5-5.0); Albumin/Globulin Ratio 1.1 (1.1-1.8); Alkaline Phosphatase 119 U/L (38-126); Aspartate Amino Transferase 29 U/L (14-36); Bilirubin,Total 0.5 mg/dl (0.2-1.3); Blood Urea Nitrogen 32 mg/dl (7-17); Calcium 9.3 mg/dl (8.4-10.2); Carbon Dioxide 38 mmol/L (22.0-30.0); Chloride 99 mmol/L (98-107); Creatinine Clearance Estimated 60 mL/min (50-200); Estimated Glomerular Filt Rate 54 ml/min (>60); GFR (African American) 66 ML/MIN (>60); Globulin 3.4 g/dL (1.3-3.2); Glucose 247 mg/dl (74-100); Sodium 143 mmol/L (136-145); Total Protein,Serum 7.3 g/dl (6.3-8.2)
[2022-03-02 15:30] LABS: Lactic Acid 1.4 mmol/L (0.7-2.1)
--- NOTE | 2022-03-02 15:57 | PC.NURSE ---
Respiratory at BS for ABG
[2022-03-02 16:03] LABS: Lymphocytes % 3 % (10-50); Monocytes % 2 % (2-9); Neutrophils % 95 % (42-76); Platelet Estimate Normal; Stomatocytes 1+; Total Cells Counted 100
[2022-03-02 16:04] LABS: ABG Base Excess 8.6 mmol/L (-2.4-2.3); ABG HCO3 33.9 mmhg (22.0-26.0); ABG Oxygen Saturation 92 % (90-100); ABG PH 7.37 mmol/L (7.35-7.45); ABG PO2 63.4 mmhg (80-100); ABG TCO2 35.8 mmhg (23-27)
[2022-03-02 16:06] LABS: Allen's Test Acceptable; Oxygen 2 L NC %; Source Right Radial
[2022-03-02 16:08] LABS: ABG PCO2 60.3 mmhg (35.0-45.0)
--- NOTE | 2022-03-02 16:24 | PC.NURSE ---
pt IV will not flush, IV DC, new IV started 22 Left FA.
--- NOTE | 2022-03-02 16:29 | PC.NURSE ---
called house for bed assignment
--- NOTE | 2022-03-02 17:34 | EXP.HP ---
History of Present Illness *Admission Date: 03/02/22 *Reason for visit:: Cough, shortness of breath for 2 weeks *History of present illness: Patient is a 76-year-old woman with past medical history of hypertension depression, and diastolic heart failure who came to the ER today for 2 weeks of cough and shortness of breath. Review of systems is negative aside from her being thirsty. She denies fever, chills, chest pain, nausea, vomiting, diarrhea, constipation, swelling. Patient is a resident of [place] Disclaimer: The information contained in this section may have been updated after the patient was seen, as this information can be updated by other users. Medical History (Updated 03/02/22 @ 17:50 by Regis Hayden MD) Anxiety Arthritis of knee COVID-19 Diastolic dysfunction Dyspnea Effusion, left knee Elevated C-reactive protein (CRP) Elevated erythrocyte sedimentation rate [place] HTN (hypertension) HTN (hypertension) Lacunar infarction Ovarian cancer Weakness Surgical History History of hysterectomy Family History Other No significant family history Social History (Updated 03/02/22 @ 17:27 by Mile Rodriges RN) Smoking Status: Current every day smoker tobacco type: cigarettes packs per day: 1 alcohol intake: never current occupational status: retired Travel in the last 8 weeks: None household members: other housing: assisted living facility Review of Systems Constitutional Constitutional: Denies body ache(s), Denies chills, Denies fever(s), Denies headache(s), Denies poor appetite, Denies lethargy and Denies weakness Eyes Eyes: Denies change in vision and Denies loss of vision ENT Ears, Nose, Mouth, and Throat: Reports dry mouth, Denies dysphagia and Denies headache(s) *Cardiovascular Cardiovascular: Denies chest pain, Denies chest pain at rest, Denies chest pain with activity, Denies claudication, Reports dyspnea, Reports dyspnea on exertion and Denies edema *Respiratory Respiratory: Denies chest congestion, Reports cough, Reports dyspnea, Reports dyspnea on exertion, Denies hemoptysis, Denies pain with cough and Denies wheezing *Gastrointestinal Gastrointestinal: Denies abdominal pain, Denies change in bowel habits, Denies constipation, Denies dyspepsia, Denies dysphagia, Denies hematochezia, Denies loose stools and Denies melena *Musculoskeletal Musculoskeletal: Denies abnormal gait, Denies back pain, Denies muscle weakness and Denies numbness *Neurologic Neurologic: Denies abnormal gait, Denies behavioral changes, Denies confusion, Denies localized weakness, Denies headache(s), Denies loss of vision, Denies numbness, Denies other visual disturbances, Denies seizure-like activity and Denies weakness Psychiatric Psychiatric: Denies anxiety, Denies auditory hallucinations, Denies behavioral changes, Denies confusion and Denies depression Allergic/Immunologic Allergic/Immunologic: Denies wheezing Meds Home Medications and Allergies Home Medications Medication Instructions Recorded Confirmed Type fluoxetine 40 mg capsule 40 mg PO DAILY Depression 03/27/21 03/02/22 History olanzapine 7.5 mg tablet 7.5 mg PO HS Anxiety 03/27/21 03/02/22 History melatonin 5 mg tablet 5 mg PO HS Insomnia 03/28/21 03/02/22 History metoprolol tartrate 25 mg tablet 12.5 mg PO DAILY Hypertension 03/02/22 03/02/22 History trazodone 50 mg tablet 25 mg PO DAILY Pain 03/02/22 03/02/22 History New Prescriptions to Start Prescriptions: Allergies Allergy/AdvReac Type Severity Reaction Status Date / Time No Known Allergies Allergy Verified 02/14/22 08:58 Exam Data for Last 24 hours Vital signs and Labs for Last 24 Hours: Temp Pulse Resp BP Pulse Ox 98.4 F 81 18 151/79 H 92 L 03/02/22 14:17 03/02/22 16:00 03/02/22 14:17 03/02/22 16:00 03/02/22 16:00 Laboratory Results -
--- NOTE | 2022-03-02 17:53 | PC.NURSE ---
report given to Stephanie MARTIN
[2022-03-03] VITALS (11 sets, daily range): BP systolic 140–162; BP diastolic 52–81; PULSE 70–101; RESP 16–22; TEMP 36.5–37.6; O2SAT 87–96; BMI 26.6
[2022-03-03 06:48] LABS: Chloride 101 mmol/L (98-107)
[2022-03-03 06:49] LABS: Potassium 3.5 mmoL/L (3.5-5.1); Sodium 142 mmol/L (136-145)
[2022-03-03 06:51] LABS: Alanine Aminotransferase 20 U/L (12-78); Aspartate Amino Transferase 21 U/L (14-36); Blood Urea Nitrogen 27 mg/dl (7-17); Creatinine Clearance Estimated 57 mL/min (50-200); Estimated Glomerular Filt Rate 61 ml/min (>60); GFR (African American) 74 ML/MIN (>60)
[2022-03-03 06:52] LABS: Albumin Level 3.2 g/dl (3.5-5.0); Albumin/Globulin Ratio 1.1 (1.1-1.8); Alkaline Phosphatase 113 U/L (38-126); Anion Gap 6.5 mEq/L (5-15); Bilirubin,Total 0.4 mg/dl (0.2-1.3); Calcium 8.9 mg/dl (8.4-10.2); Carbon Dioxide 38 mmol/L (22.0-30.0); Glucose 105 mg/dl (74-100); Magnesium 1.5 mg/dl (1.6-2.3); Total Protein,Serum 6.2 g/dl (6.3-8.2)
[2022-03-03 06:53] LABS: Basophils % 0.2 % (0.1-2.0); Eosinophils % 0.2 % (0.1-12.0); Hemoglobin 10.4 g/dL (12.2-16.2); Lymphocytes # 0.9 K/mm3 (0.7-4.5); Lymphocytes % 6.8 % (10-50); Mean Corpuscular HGB Conc 32.4 g/dL (31.8-35.4); Mean Corpuscular Hemoglobin 30.8 pg (27.0-31.2); Mean Platelet Volume 8.2 fl (7.4-10.4); Monocytes # 0.7 K/mm3 (0.1-1.0); Neutrophils # 11.4 K/mm3 (1.8-7.8); Neutrophils % 87.8 % (37.0-80.0); Platelet Count 259 K/mm3 (142-424); Red Blood Count 3.36 M/mm3 (4.20-5.40)
[2022-03-03 07:00] LABS: NT Pro Brain Natriuretic Pep. 2770 pg/mL (0-125)
[2022-03-03 07:04] LABS: MANUAL DIFFERENTIAL MANUAL DIFFERENTIAL (MANUAL DIFF)
[2022-03-03 07:44] LABS: Lymphocytes % 4 % (10-50); Monocytes % 2 % (2-9); Neutrophils % 91 % (42-76); Total Cells Counted 100
[2022-03-03 07:45] LABS: Platelet Estimate Normal; RBC Morphology Normal
--- NOTE | 2022-03-03 08:02 | HMH.PHAINT1 ---
Pharmacy Intervention Comments: MEDICATION RECONCILIATION COMPLETE USING [facility] FROM [facility], MOST RECENT CARDIOLOGY OFFICE VISIT, AND EXTERNAL PHARMACY FILL HISTORY.
--- NOTE | 2022-03-03 08:13 | PC.NURSE ---
RN aware of low o2 sats.
--- NOTE | 2022-03-03 08:57 | ECG_ITS ---
APPROVED REPORT Exam: Resting ECG HR:82 bpm ECG Measurements Heart Rate 82 AXES ME 178 P 58 QRSd 91 QRS 12 QT 356 T -3 QTc 395 Conclusion SINUS RHYTHM NONSPECIFIC T-WAVE ABNORMALITY BORDERLINE ECG UNCONFIRMED REPORT Electronically signed by : Rodríguez Caceres MD 03/03/2022 11:10:05
--- NOTE | 2022-03-03 10:23 | CT_ITS ---
PROCEDURE INFORMATION: Exam: CTA Chest With Contrast Exam date and time: 03/03/2022 11:05 AM Age: 76 years old Clinical indication: Dyspnea TECHNIQUE: Imaging protocol: Computed tomographic angiography of the chest with contrast. 3D rendering (Not supervised by radiologist): MIP and/or 3D reconstructed images were created by the technologist. Radiation optimization: All CT scans at this facility use at least one of these dose optimization techniques: automated exposure control; mA and/or kV adjustment per patient size (includes targeted exams where dose is matched to clinical indication); or iterative reconstruction. Contrast material: ISVOUE 370; Contrast volume: 70 ml; Contrast route: INTRAVENOUS (IV); COMPARISON: CR XR CHEST PORTABLE 03/02/2022 3:13 PM FINDINGS: Pulmonary arteries: Normal. No pulmonary emboli. Aorta: Unremarkable. No aortic aneurysm. No aortic dissection. Lungs: Background of emphysema. Consolidative opacities and tree-in-bud nodularity are seen predominantly in the right upper and lower lobes but also within the lingula and left lower lobe and right middle lobe to a lesser extent. Pleural spaces: Unremarkable. No pneumothorax. No pleural effusion. Heart: Mild cardiomegaly. Lymph nodes: Mildly enlarged mediastinal and right hilar lymph nodes, likely reactive. Bones/joints: Unremarkable. No acute fracture. Soft tissues: Unremarkable. IMPRESSION: 1. No pulmonary emboli identified. 2. Multilobar pneumonia.
--- NOTE | 2022-03-03 10:34 | SW/DCPLANNER ---
Addendum entered by [facility] 03/14/22 12:33: I notified patient's sister (no answer VM left) and Cat reddy/ Isis that patient will discharge to [facility] today. Addendum entered by [facility] 03/14/22 10:42: Patient is down to 4L and per MD patient is medically stable for discharge to [facility] level of care. I have attempted to contact [facility]: no answer at this time. Addendum entered by [facility] 03/13/22 15:10: I have updated [facility] regarding this patient. Addendum entered by [facility] 03/11/22 11:47: I have updated [facility] regarding this patient. Addendum entered by [facility] 03/10/22 11:10: Updated patient information has been faxed to [facility]. Leeann Montoya has stated that they prefer this patient be on 3-4L of O2 prior to admission to their facility. Patient is currently requiring 6L of O2. Addendum entered by [facility] 03/04/22 12:49: I have updated [facility] regarding this patient: not ready for discharge at this time. Patient will require a COVID swab prior to discharge. Addendum entered by [facility] 03/03/22 15:12: I have also updated Cat reddy/ Isis Yang. Addendum entered by [facility] 03/03/22 15:10: Fay Montoya stated that she can accept this patient once medically stable for discharge. Addendum entered by [facility] 03/03/22 11:35: Patient's sister is agreeable to placement at [facility] or [facility]. Patient information will be faxed today. Original Note: This patient is a resident of [place]. Patient is requiring 3+ L of O2 currently. PT/OT will evaluate this patient today: once evaluation is completed I will speak with patient and her sister regarding discharge plans today. Discharge date is unknown at this time.
--- NOTE | 2022-03-03 10:59 | HMH.OTEV ---
OT Inpatient Evaluation Rehab OT IP Evaluation Start: 03/03/22 09:39 Freq: ONCE Status: Active Protocol: Document 03/03/22 10:33 DANYEL (Rec: 03/03/22 10:58 DANYEL [id number]) Rehab OT IP Assessment Subjective History Patient is a 76-year-old woman with past medical history of hypertension depression, and diastolic heart failure who came to the ER today for 2 weeks of cough and shortness of breath. Review of systems is negative aside from her being thirsty. She denies fever, chills, chest pain, nausea, vomiting, diarrhea, constipation, swelling. Patient is a resident of [place]. Anxiety Arthritis of knee COVID-19 Diastolic dysfunction Dyspnea Effusion, left knee Elevated C-reactive protein ( CRP) Elevated erythrocyte sedimentation rate [place] HTN (hypertension) HTN (hypertension) Lacunar infarction Ovarian cancer Weakness Patient is a resident at [facility] of [place]. Patient was independent with ADLs and fx'l mobility prior to hospitlaization. However Patient was not on 02 while at [facility]. Subjective I can try to get up. Assisted Patient from supine in bed->SPT to sit up in recliner requiring Mod A x2. Patient verbalize, I need to use the restroom. Assisted patient back to [facility] for toileting requiring Mod A. Left Patient sitting up at [facility] with nursing assisted. Objective Patient Orientation Person,Place Upper Extremity Gross ROM WFL Assist Level Modera
--- NOTE | 2022-03-03 14:07 | HMH.PTEV ---
Physical Therapy Evaluation Rehab PT IP Evaluation Start: 03/03/22 09:38 Freq: ONCE Status: Active Protocol: Document 03/03/22 13:54 PHORNE (Rec: 03/03/22 14:07 PHORNE [id number]) Subjective/History History History 76 yowf adm to [facility] with PNA and resp failure. She resides at a personal long term and waqs generally independent with all mobility without AD per her report. Subjective Subjective Pt reports no c/o pain, just feels SOA with exertion. Rehab PT IP Eval Objective Appearance Patient Behavior Appropriate Patient Orientation Person,Place Difficulty following instructions none Speech Pattern Clear Ambulation Patient Able to Ambulate Yes Ambulation Observation IP General Gait Pattern Observation Wide Based Gait,Shuffling Step Ambulation Distance (feet) 3 Ambulation Assistive Device None Ambulation Ability Minimal x 1 (25% assist) Balance Ability to Arise Able, uses arms to help Sitting Balance Steady, safe Standing Balance Steady, wide stance Dynamic Sitting Balance Ability Fair Dynamic Standing Balance Ability Poor Transfers Bed Transfer Ability Moderate x 1 (50% assist) Chair Transfer Ability Moderate x 1 (50% assist) Sit to Stand Bed Transfer Ability Moderate x 1 (50% assist) Sit to Stand Chair Transfer Ability Moderate x 1 (50% assist) Rehab PT IP prob,goals,plan Problems Date of Evaluation: 03/03/22 PT IP Problems Bed Mobility,Transfers,Gait Rehab Potential Rehab Potential Good Plan PT Intervention Plan Bed Mobility,Transfers,Gait, Therapeutic Exercise PT Plan Frequency BID Duration LOS Discharge Goals Bed Transfer Ability Minimal x 1 (25% assist) Sit to Stand Chair Transfer Ability Minimal x 1 (25% assist) Ambulation Assistive Device Rolling Walker Ambulation Distance (feet) 20 Discharge Plan PT Discharge Plan Pt is currently most appropriate for rehab placement once medically stable. G -code Required No Eval Complexity Eval Charge Codes 81600 - Moderate Complexity PHYSICIAN CERTIFICATION: I certify the specified therapy services for Keyla Damon are required, authorized, and reviewed every 30 days.
--- NOTE | 2022-03-03 19:49 | EXP.PN ---
Subjective *Date: 03/03/22 *Time: 19:49 Interval history: No acute events overnight. Pt feels a little bit worse today and she had some increasing supplemental oxygen requirements in the late morning. She is back down to 5 L by nasal cannula Exam Data for Last 24 hours Vital signs and Labs for Last 24 Hours: Temp Pulse Resp BP Pulse Ox FiO2 97.8 F 100 H 16 162/81 H 93 L 35 03/03/22 16:00 03/03/22 18:26 03/03/22 16:00 03/03/22 16:00 03/03/22 18:26 03/03/22 08:25 Laboratory Results - last 24 hr 03/03/22 06:00: WBC 13.0 H, RBC 3.36 L, Hgb 10.4 L, Hct 32.0 L, MCV 95.0, MCH 30.8, MCHC 32.4, RDW 15.0, Plt Count 259, MPV 8.2, Neut % (Auto) 87.8 H, Lymph % (Auto) 6.8 L, Bladen % (Auto) 5.0, Eos % (Auto) 0.2, Baso % (Auto) 0.2, Neut # (Auto) 11.4 H, Lymph # (Auto) 0.9, Bladen # (Auto) 0.7, Eos # (Auto) 0.0, Baso # (Auto) 0.0, Total Counted 100, Neutrophils % (Manual) 91 H, Band Neutrophils % 3.0, Lymphocytes % (Manual) 4 L, Monocytes % (Manual) 2, Platelet Estimate Normal, RBC Morphology Normal 03/03/22 06:00: Sodium 142, Potassium 3.5, Chloride 101, Carbon Dioxide 38 H, Anion Gap 6.5, BUN 27 H, Creatinine 0.90, Estimated Creat Clear 57, Estimated GFR 61, Est GFR ( Amer) 74, Glucose 105 H D, Calcium 8.9, Magnesium 1.5 L, Total Bilirubin 0.4, AST 21 D, ALT 20 D, Alkaline Phosphatase 113, NT-Pro-B Natriuret Pep 2770 H, Total Protein 6.2 L, Albumin 3.2 L D, Globulin 3.0, Albumin/Globulin Ratio 1.1 I & O for Last 24 hours: Intake & Output 02/28/22 03/01/22 03/02/22 03/03/22 23:59 23:59 23:59 23:59 Intake Total 1540 / 1540 Output Total 250 / 250 Balance 1290 / 1290 Weight 71.781 kg 72.665 kg Constitutional Constitutional: no acute distress (But acutely ill-appearing), average body habitus, chronically ill appearing and cooperative *Routine HEENT Exam Head: Present normocephalic and atraumatic Eye: Present EOMI and PERRL ENT: Present mucous membranes moist and oropharynx clear *Routine Neck Exam Neck: Present supple and full ROM *Routine Respiratory Exam Respiratory: Present CTA bilaterally, prolonged expiratory phase, rhonchi (Diffusely), crackles, distant breath sounds and diminished air movement; Absent accessory muscle use or respiratory distress *Routine Cardiovascular Exam Cardiovascular: Present RRR, Normal S1 and Normal S2; Absent murmur *Routine Abdominal Exam Abdominal: Present soft and normoactive bowel sounds; Absent tenderness, distended, rebound or guarding *Routine Extremities Exam Extremities: Present full ROM, pulses intact and normal capillary refill; Absent edema or tenderness *Routine Neurological Exam Neurological: Present alert, oriented X3, CN II-XII intact, moving all extremities, normal tone and normal speech; Absent sensory deficit or motor deficit Routine Psychiatric Exam Psychiatric: Present normal affect, normal thought process, cooperative, good insight and good judgment Assessment and Plan *Assessment and plan (1) Community acquired pneumonia: Status: Acute Category: Medical Code(s): J18.9 - Pneumonia, unspecified organism (2) Acute on chronic respiratory failure with hypoxia and hypercapnia: Status: Acute Category: Medical Code(s): J96.21 - Acute and chronic respiratory failure with hypoxia; J96.22 - Acute and chronic respiratory failure with hypercapnia (3) Depression: Status: Acute Category: Medical Code(s): F32.A - Depression, unspecified (4) HTN (hypertension): Status: Acute Category: Medical Code(s): I10 - Essential (primary) hypertension (5) Diastolic heart failure: Status: Acute Category: Medical Code(s): I50.30 - Unspecified diastolic (congestive) heart failure (6) COPD (chronic obstructive pulmonary disease): Status: Acute Category: Medical Code(s): J44.9 - Chronic obstructive pulmonary disease, unspecified Plan Patient is a 76-year-old woman with
[2022-03-04] VITALS (12 sets, daily range): BP systolic 146–166; BP diastolic 66–77; PULSE 77–90; RESP 14–20; TEMP 36.9–37.2; O2SAT 95–99; BMI 26.6; BMI 26.4
--- NOTE | 2022-03-04 03:45 | PC.NURSE ---
Pt. had wheezing at the beginning of the shift. She was put on the venti mask while she sleeps to maintain oxygen level in the 90's. . called bout her wheezing and he said to stop the IV fluids and give here a breathing treatment. No other changes noted.
[2022-03-04 07:28] LABS: Basophils % 0.2 % (0.1-2.0); Eosinophils # 0.1 K/mm3 (0.0-0.4); Eosinophils % 0.3 % (0.1-12.0); Hematocrit 31.7 % (37.0-47.0); Hemoglobin 10.1 g/dL (12.2-16.2); Lymphocytes % 6.3 % (10-50); Mean Corpuscular HGB Conc 31.8 g/dL (31.8-35.4); Mean Corpuscular Hemoglobin 30.9 pg (27.0-31.2); Mean Corpuscular Volume 97.2 fl (81-99); Monocytes # 0.9 K/mm3 (0.1-1.0); Monocytes % 5.2 % (1.7-9.3); Neutrophils # 14.4 K/mm3 (1.8-7.8); Platelet Count 275 K/mm3 (142-424); Red Blood Count 3.26 M/mm3 (4.20-5.40); White Blood Count 16.4 K/mm3 (4.8-10.8)
[2022-03-04 07:30] LABS: Chloride 101 mmol/L (98-107); Sodium 143 mmol/L (136-145)
[2022-03-04 07:33] LABS: Alanine Aminotransferase 19 U/L (12-78); Albumin Level 2.9 g/dl (3.5-5.0); Albumin/Globulin Ratio 0.9 (1.1-1.8); Alkaline Phosphatase 131 U/L (38-126); Aspartate Amino Transferase 25 U/L (14-36); Bilirubin,Total 0.3 mg/dl (0.2-1.3); Blood Urea Nitrogen 21 mg/dl (7-17); Creatinine Clearance Estimated 56 mL/min (50-200); Estimated Glomerular Filt Rate 70 ml/min (>60); GFR (African American) 85 ML/MIN (>60); Globulin 3.1 g/dL (1.3-3.2); Potassium 3.3 mmoL/L (3.5-5.1)
[2022-03-04 07:34] LABS: Calcium 8.7 mg/dl (8.4-10.2); Glucose 93 mg/dl (74-100)
[2022-03-04 07:40] LABS: Anion Gap 9.3 mEq/L (5-15); Carbon Dioxide 36 mmol/L (22.0-30.0)
[2022-03-04 07:43] LABS: MANUAL DIFFERENTIAL MANUAL DIFFERENTIAL (MANUAL DIFF)
--- NOTE | 2022-03-04 08:04 | XR_ITS ---
FINAL REPORT CLINICAL HISTORY: increased O2 requirement. COMPARISON: March 02, 2022 FINDINGS: A single portable view of the chest was obtained. The heart size and pulmonary vascularity are within normal limits. The mediastinum is within normal limits. There are persistent pulmonary opacities consistent with bilateral pneumonia. There is slight worsening of opacities in the right upper lobe. The bony thorax is intact. IMPRESSION: Persistent pulmonary opacities consistent with bilateral pneumonia with slight worsening opacities in the right upper lobe. Reviewed, Interpreted and Dictated by Joaquín Ceballos III, MD Transcribed by Tracey Ko Authenticated and [facility]
[2022-03-04 08:18] LABS: Eosinophils % 1 % (0-3); Lymphocytes % 7 % (10-50); Monocytes % 9 % (2-9); Neutrophils % 83 % (42-76); Platelet Estimate Normal; RBC Morphology Normal; Total Cells Counted 100
--- NOTE | 2022-03-04 09:52 | PC.NURSE ---
attempted to wean pt from venti mask to NC. pt o2 sat dropped to mid 80's on 5lnc. placed back on venti mask with o2 92%
--- NOTE | 2022-03-04 10:27 | PC.NURSE ---
RESP CARE NOTE: Pt found on 50% venti mask. SpO2 at 88% on 50% venti mask. Will continue to monitor to monitor.
--- NOTE | 2022-03-04 18:35 | PC.NURSE ---
pt placed on vapotherm this shift. has diuresed well but is incontinent with brief in place.
--- NOTE | 2022-03-04 18:51 | EXP.ACUTE.PN ---
Subjective *Date: 03/04/22 *Time: 19:20 Interval history: On 50% Venti this morning on rounds. Denied any distress however was using accessory muscles. No nausea or vomiting. Afebrile and hemodynamically stable. White cell count marginally increased. Remainder of labs stable this morning. Back in March, patient had echo obtained showing heart failure with preserved ejection fraction and diastolic dysfunction. Review of labs this morning, had elevated BNP on presentation. Tolerating minimal p.o. intake. Medical Exam Vital signs and Labs for Last 24 Hours: Vital Signs Temp Pulse Pulse Resp BP Pulse Ox FiO2 03/04/22 18:43 60 03/04/22 18:38 81 03/04/22 18:38 84 03/04/22 12:00 98.5 F 77 20 146/77 H 97 03/04/22 11:20 83 03/04/22 11:20 86 03/04/22 08:00 98.6 F 90 14 166/66 H 98 03/04/22 08:00 98 03/04/22 06:16 89 03/04/22 06:16 88 03/04/22 06:16 95 50 03/04/22 04:00 98.8 F 90 20 156/74 H 95 03/04/22 03:45 88 03/04/22 03:45 90 03/03/22 20:00 93 L 03/04/22 00:00 98.7 F 86 20 146/67 H 99 03/03/22 23:27 88 03/03/22 23:27 86 03/03/22 20:00 99.7 F H 101 H 22 141/69 H 95 Intake and Output 03/04/22 03/04/22 03/04/22 07:59 15:59 23:59 Intake Total 520 / 1575 720 / 1575 335 / 1575 Output Total 0 / 0 Balance 520 / 1575 720 / 1575 335 / 1575 Intake: Intake, Oral Amount 120 / 840 720 / 840 Intake, Total IV Amount 400 / 400 0.9 % Sodium Chloride 1,000 ml 400 / 400 @ 75 mls/hr IV .[id number] [facility] Rx# :[id number] Infusion Intake 335 / 335 0.9 % Sodium Chloride 1,000 ml 335 / 335 @ 75 mls/hr IV .[id number] [facility] Rx# :[id number] Output: Output, Urine Amount 0 / 0 Other: Number of Unmeasured Voids 1 1 Weight 72.376 kg 72 kg Patient Weight 03/04/22 23:59 Weight 72 kg Laboratory Results - last 24 hr 03/04/22 06:09: WBC 16.4 H D, RBC 3.26 L, Hgb 10.1 L, Hct 31.7 L, MCV 97.2, MCH 30.9, MCHC 31.8, RDW 15.0, Plt Count 275, MPV 8.0, Neut % (Auto) 88.0 H, Lymph % (Auto) 6.3 L, [place] % (Auto) 5.2, Eos % (Auto) 0.3, Baso % (Auto) 0.2, Neut # (Auto) 14.4 H, Lymph # (Auto) 1.0, [place] # (Auto) 0.9, Eos # (Auto) 0.1, Baso # (Auto) 0.0, Total Counted 100, Neutrophils % (Manual) 83 H, Lymphocytes % (Manual) 7 L, Monocytes % (Manual) 9, Eosinophils % (Manual) 1, Platelet Estimate Normal, RBC Morphology Normal 03/04/22 06:09: Sodium 143, Potassium 3.3 L, Chloride 101, Carbon Dioxide 36 H, Anion Gap 9.3, BUN 21 H, Creatinine 0.80, Estimated Creat Clear 56, Estimated GFR 70, Est GFR ( Amer) 85, Glucose 93, Calcium 8.7, Total Bilirubin 0.3, AST 25, ALT 19, Alkaline Phosphatase 131 H, Total Protein 6.0 L, Albumin 2.9 L, Globulin 3.1, Albumin/Globulin Ratio 0.9 L I & O for Labs for Last 24 Hours: Intake & Output 03/01/22 03/02/22 03/03/22 03/04/22 23:59 23:59 23:59 23:59 Intake Total 1540 / 1540 1575 / 1575 Output Total 550 / 550 0 / 0 Balance 990 / 990 1575 / 1575 Weight 71.781 kg 72.665 kg 72 kg Microbiology Reports for the Last 24 Hours: Microbiology 03/02/22 14:25 Blood Blood Culture - Preliminary NO GROWTH AFTER 48 HOURS 03/02/22 14:25 Blood Blood Culture - Preliminary NO GROWTH AFTER 48 HOURS Constitutional: Present mild distress, average body habitus and chronically ill appearing Head: Present atraumatic and normocephalic ENT: Present normal exam Neck: Present normal inspection Respiratory: Present accessory muscle use, rhonchi and crackles; Absent wheezes Cardiac: Present Reg Rate and Rhythm GI: Present normal bowel sounds; Absent tenderness Extremities: Present normal inspection, full ROM and edema (trace BLE) Skin: Present intact; Absent erythema Neuro: Present Grossly Intact, alert, awake, oriented x 3 and moves all extremities Assessment a
[2022-03-05] VITALS (10 sets, daily range): BP systolic 120–157; BP diastolic 54–69; PULSE 73–106; RESP 18–22; TEMP 36.9–37.5; O2SAT 90–96; BMI 26.9
--- NOTE | 2022-03-05 06:35 | PC.NURSE ---
NO ACUTE CHANGES SINCE PREVIOUS ASSESSMENT. PT HAS RESTED WELL. REMAINS ON VAPOTHERM AT 30LPM AND 60%. TOLERATING WELL WITH SATS IN THE LOW 90'S. LUNG SOUNDS ON THE RIGHT SIDE A WET WITH COARSE CRACKLES AND EXPIRATORY RHONCHI. LEFT SIDE IS DIMINISHED WITH EXPIRATORY WHEEZES. PT HAS BEEN INCONTINENT THIS SHIFT. BED ALARM IN PLACE FOR PT SAFETY. VSS.
[2022-03-05 06:36] LABS: Basophils # 0.1 K/mm3 (0-0.2); Basophils % 0.5 % (0.1-2.0); Eosinophils # 0.2 K/mm3 (0.0-0.4); Eosinophils % 1.1 % (0.1-12.0); Hematocrit 31.6 % (37.0-47.0); Hemoglobin 10.1 g/dL (12.2-16.2); Lymphocytes # 1.1 K/mm3 (0.7-4.5); Lymphocytes % 7.2 % (10-50); Mean Corpuscular HGB Conc 31.8 g/dL (31.8-35.4); Mean Corpuscular Hemoglobin 30.8 pg (27.0-31.2); Mean Corpuscular Volume 96.8 fl (81-99); Mean Platelet Volume 8.5 fl (7.4-10.4); Monocytes # 0.8 K/mm3 (0.1-1.0); Neutrophils # 13.2 K/mm3 (1.8-7.8); Neutrophils % 86.1 % (37.0-80.0); Platelet Count 286 K/mm3 (142-424); Red Blood Count 3.27 M/mm3 (4.20-5.40); White Blood Count 15.3 K/mm3 (4.8-10.8)
[2022-03-05 07:02] LABS: MANUAL DIFFERENTIAL MANUAL DIFFERENTIAL (MANUAL DIFF)
[2022-03-05 07:03] LABS: Chloride 95 mmol/L (98-107); Sodium 141 mmol/L (136-145)
[2022-03-05 07:04] LABS: Potassium 3.2 mmoL/L (3.5-5.1)
[2022-03-05 07:06] LABS: Alanine Aminotransferase 23 U/L (12-78); Albumin Level 2.9 g/dl (3.5-5.0); Albumin/Globulin Ratio 0.9 (1.1-1.8); Alkaline Phosphatase 126 U/L (38-126); Aspartate Amino Transferase 28 U/L (14-36); Bilirubin,Total 0.2 mg/dl (0.2-1.3); Blood Urea Nitrogen 23 mg/dl (7-17); Creatinine Clearance Estimated 57 mL/min (50-200); Estimated Glomerular Filt Rate 61 ml/min (>60); GFR (African American) 74 ML/MIN (>60); Globulin 3.2 g/dL (1.3-3.2); Total Protein,Serum 6.1 g/dl (6.3-8.2)
[2022-03-05 07:07] LABS: Calcium 8.1 mg/dl (8.4-10.2); Glucose 114 mg/dl (74-100)
[2022-03-05 07:14] LABS: Anion Gap 7.2 mEq/L (5-15); Carbon Dioxide 42 mmol/L (22.0-30.0)
--- NOTE | 2022-03-05 07:55 | EXP.ACUTE.PN ---
Subjective *Date: 03/05/22 *Time: 18:33 Interval history: Tolerating Vapotherm, no significant improvement in the past 24 hours. Currently on 60% at 40 L. Having intermittent nausea, responds somewhat to Zofran. Wanting to eat however. Denies chest pain, diarrhea, confusion. Medical Exam Vital signs and Labs for Last 24 Hours: Vital Signs Temp Pulse Pulse Resp BP Pulse Ox FiO2 03/04/22 11:30 78 20 03/05/22 05:53 79 03/05/22 05:53 83 03/05/22 05:53 90 L 60 03/05/22 03:42 98.9 F 76 18 120/54 L 92 L 03/05/22 00:00 98.6 F 76 18 157/69 H 93 L 03/04/22 23:39 83 03/04/22 23:39 88 03/04/22 20:00 95 60 03/04/22 20:00 98.7 F 83 20 158/67 H 98 03/04/22 16:00 99.0 F 81 20 162/72 H 98 03/04/22 18:43 60 03/04/22 18:38 81 03/04/22 18:38 84 03/04/22 12:00 98.5 F 77 20 146/77 H 97 03/04/22 11:20 83 03/04/22 11:20 86 03/04/22 08:00 98.6 F 90 14 166/66 H 98 03/04/22 08:00 98 Intake and Output 03/04/22 03/04/22 03/05/22 15:59 23:59 07:59 Intake Total 720 / 1935 695 / 1935 240 / 240 Balance 720 / 1935 695 / 1935 240 / 240 Intake: Intake, Oral Amount 720 / 1200 360 / 1200 240 / 240 Infusion Intake 335 / 335 0.9 % Sodium Chloride 1,000 ml 335 / 335 @ 75 mls/hr IV .[id number] [facility] Rx# :[id number] Other: Number of Unmeasured Voids 1 1 Number of Urine Attends/Diapers 1 Weight 72 kg 73.284 kg Patient Weight 03/05/22 23:59 Weight 73.284 kg Laboratory Results - last 24 hr 03/04/22 06:09: Total Counted 100, Neutrophils % (Manual) 83 H, Lymphocytes % (Manual) 7 L, Monocytes % (Manual) 9, Eosinophils % (Manual) 1, Platelet Estimate Normal, RBC Morphology Normal 03/04/22 06:09: Sodium 143, Potassium 3.3 L, Chloride 101, Carbon Dioxide 36 H, Anion Gap 9.3, BUN 21 H, Creatinine 0.80, Estimated Creat Clear 56, Estimated GFR 70, Est GFR ( Amer) 85, Glucose 93, Calcium 8.7, Total Bilirubin 0.3, AST 25, ALT 19, Alkaline Phosphatase 131 H, Total Protein 6.0 L, Albumin 2.9 L, Globulin 3.1, Albumin/Globulin Ratio 0.9 L 03/05/22 06:00: WBC 15.3 H, RBC 3.27 L, Hgb 10.1 L, Hct 31.6 L, MCV 96.8, MCH 30.8, MCHC 31.8, RDW 15.0, Plt Count 286, MPV 8.5, Neut % (Auto) 86.1 H, Lymph % (Auto) 7.2 L, [place] % (Auto) 5.0, Eos % (Auto) 1.1, Baso % (Auto) 0.5, Neut # (Auto) 13.2 H, Lymph # (Auto) 1.1, [place] # (Auto) 0.8, Eos # (Auto) 0.2, Baso # (Auto) 0.1 03/05/22 06:00: Sodium 141, Potassium 3.2 L, Chloride 95 L, Carbon Dioxide 42 H*, Anion Gap 7.2, BUN 23 H, Creatinine 0.90, Estimated Creat Clear 57, Estimated GFR 61, Est GFR ( Amer) 74, Glucose 114 H D, Calcium 8.1 L, Total Bilirubin 0.2, AST 28, ALT 23, Alkaline Phosphatase 126, Total Protein 6.1 L, Albumin 2.9 L, Globulin 3.2, Albumin/Globulin Ratio 0.9 L I & O for Labs for Last 24 Hours: Intake & Output 03/02/22 03/03/22 03/04/22 03/05/22 23:59 23:59 23:59 23:59 Intake Total 1540 / 1540 1934 240 / 240 Output Total 550 / 550 0 / 0 Balance 990 / 990 1934 240 / 240 Weight 71.781 kg 72.665 kg 72 kg 73.284 kg Microbiology Reports for the Last 24 Hours: Microbiology 03/02/22 14:25 Blood Blood Culture - Preliminary NO GROWTH AFTER 48 HOURS 03/02/22 14:25 Blood Blood Culture - Preliminary NO GROWTH AFTER 48 HOURS Constitutional: Present mild distress, average body habitus and chronically ill appearing Head: Present atraumatic and normocephalic ENT: Present normal exam Neck: Present normal inspection Respiratory: Present accessory muscle use, rhonchi and crackles; Absent wheezes Cardiac: Present Reg Rate and Rhythm GI: Present normal bowel sounds; Absent tenderness Extremities: Present normal inspection, full ROM and edema (trace BLE) Skin: Present intact; Absent erythema Neuro: Present Grossly Intact, alert, awake, oriented x 3 an
[2022-03-05 08:16] LABS: Phosphorous 3.2 mg/dl (2.5-4.5)
[2022-03-05 08:24] LABS: Lymphocytes % 5 % (10-50); Monocytes % 2 % (2-9); Neutrophils % 92 % (42-76); Total Cells Counted 100
--- NOTE | 2022-03-05 08:24 | EXP.PHA.CONS ---
Pharmacy Consult Date: 03/05/22 Time: 08:24 Referring provider: DR FLORES Reason for Consult:: VANCOMYCIN DOSING CONSULT Allergies Allergy/AdvReac Type Severity Reaction Status Date / Time No Known Allergies Allergy Verified 02/14/22 08:58 Home Medications Medication Instructions Recorded Confirmed Type fluoxetine 40 mg capsule 40 mg PO DAILY Depression 03/27/21 03/02/22 History olanzapine 7.5 mg tablet 7.5 mg PO HS Anxiety 03/27/21 03/02/22 History melatonin 5 mg tablet 5 mg PO HS Insomnia 03/28/21 03/02/22 History metoprolol tartrate 25 mg tablet 12.5 mg PO BID Hypertension 03/02/22 03/03/22 History trazodone 50 mg tablet 25 mg PO DAILY Insomnia 03/02/22 03/02/22 History acetaminophen 500 mg tablet 500 mg PO Q6HP PRN Fever Or Pain 03/03/22 03/03/22 History loperamide 2 mg capsule 2 mg PO Q4H PRN Diarrhea 03/03/22 03/03/22 History sennosides 8.6 mg tablet 8.6 mg PO DAILYP PRN Constipation 03/03/22 03/03/22 History New Prescriptions to Start Prescriptions: Height: 1.65 m Weight: 73.284 kg Laboratory Results:: Laboratory Results - last 24 hr 03/05/22 06:00: WBC 15.3 H, RBC 3.27 L, Hgb 10.1 L, Hct 31.6 L, MCV 96.8, MCH 30.8, MCHC 31.8, RDW 15.0, Plt Count 286, MPV 8.5, Neut % (Auto) 86.1 H, Lymph % (Auto) 7.2 L, [place] % (Auto) 5.0, Eos % (Auto) 1.1, Baso % (Auto) 0.5, Neut # (Auto) 13.2 H, Lymph # (Auto) 1.1, [place] # (Auto) 0.8, Eos # (Auto) 0.2, Baso # (Auto) 0.1 03/05/22 06:00: Sodium 141, Potassium 3.2 L, Chloride 95 L, Carbon Dioxide 42 H*, Anion Gap 7.2, BUN 23 H, Creatinine 0.90, Estimated Creat Clear 57, Estimated GFR 61, Est GFR ( Amer) 74, Glucose 114 H D, Calcium 8.1 L, Total Bilirubin 0.2, AST 28, ALT 23, Alkaline Phosphatase 126, Total Protein 6.1 L, Albumin 2.9 L, Globulin 3.2, Albumin/Globulin Ratio 0.9 L 03/05/22 06:00: Phosphorus 3.2 Medical History: Medical History (Updated 03/02/22 @ 17:50 by Regis Hayden MD) Anxiety Arthritis of knee COVID-19 Diastolic dysfunction Dyspnea Effusion, left knee Elevated C-reactive protein (CRP) Elevated erythrocyte sedimentation rate [place] HTN (hypertension) HTN (hypertension) Lacunar infarction Ovarian cancer Weakness Assessment and Plan Assessment and plan all Dx Assessment and Plan for all problems:: Pharmacokinetic dosing service Objective: Age: 76 yo Serum creatinine: 1 mg/dL Height: 65.0 Inches Weight (kg): 73.284 Diagnosis: PNEUMONIA Assessment: IBW (kg): 57.00 Dosing wt(kg): 73.284 Estimated Creatinine clearance (ml/min): 44.4 CRCL method: Cockcroft and Gault using ibw(default). Drug selected: Vancomycin Vd (liters): 55.0 (factor used: 0.75 L/kg) Ravinder (hr-1): 0.041 Half life (hrs): 16.91 CLvanco=?? 2.255 L/hr Recommended dose: 1250 mg Interval: 24 hrs Infusion time (hrs): 2.0 Predicted peak (mcg/mL): 34.8 Predicted trough (mcg/mL): 14.12 Total body weight is being used for vancomycin dosing. Recommendations: Give Vancomycin 1250 mg q 24 hrs with an expected Cpeak of 34.8 mcg/ml and an expected Ctrough of 14.12 mcg/ml AUC 0-24 /NEWTON Data: NEWTON 0.5 mcg/mL:?? AUC/NEWTON:? 1108.6 NEWTON 1.0 mcg/mL:?? AUC/NEWTON:? 554.3 --------- [place]WTON 1.5 mcg/mL:?? AUC/NEWTON:? 369.5 NEWTON 2.0 mcg/mL:?? AUC/NEWTON:? 277.2 Thank you for the consult
[2022-03-05 08:25] LABS: Hypochromasia 1+; Macrocytosis 1+; Platelet Estimate Normal
--- NOTE | 2022-03-05 09:39 | EXP.PULM.CON ---
History of Present Illness History of present illness: Ms. Damon is a 76-year-old female current smoker greater than [id number] smoking history presented to the hospital with worsening respiratory symptoms along with cough and productive phlegm, initiated on treatment for community-acquired pneumonia prompting increasing oxygen requirements and pulmonary was called for further evaluation [facility] Disclaimer: The information contained in this section may have been updated after the patient was seen, as this information can be updated by other users. Medical History (Updated 03/05/22 @ 12:24 by Matthieu Ramos MD) Acute respiratory failure with hypoxia Anxiety Arthritis of knee COVID-19 Diastolic dysfunction Dyspnea Effusion, left knee Elevated C-reactive protein (CRP) Elevated erythrocyte sedimentation rate [place] HAP (hospital-acquired pneumonia) HTN (hypertension) HTN (hypertension) Lacunar infarction Ovarian cancer Respiratory failure with hypoxia and hypercapnia Weakness Surgical History History of hysterectomy Family History Other No significant family history Social History (Updated 03/02/22 @ 17:27 by Mile Rodriges, RN) Smoking Status: Current every day smoker tobacco type: cigarettes packs per day: 1 alcohol intake: never current occupational status: retired Travel in the last 8 weeks: None household members: other housing: assisted living facility Review of Systems Constitutional Constitutional: Reports fatigue, Denies headache(s) and Reports weakness Eyes Eyes: Denies itchy eyes and Denies loss of vision ENT Ears, Nose, Mouth, and Throat: Denies headache(s), Denies lip swelling and Denies throat swelling *Cardiovascular Cardiovascular: Reports dyspnea, Reports dyspnea on exertion and Reports orthopnea *Respiratory Respiratory: Reports chest congestion, Reports cough, Reports dyspnea, Reports dyspnea on exertion, Denies excessive phlegm production and Denies wheezing *Gastrointestinal Gastrointestinal: Denies abdominal pain, Denies belching and Denies cramping *Musculoskeletal Musculoskeletal: Denies abnormal gait and Denies numbness *Neurologic Neurologic: Denies abnormal gait, Denies behavioral changes, Denies confusion, Denies localized weakness, Denies headache(s), Denies loss of vision, Denies numbness, Denies other visual disturbances, Denies seizure-like activity and Reports weakness Psychiatric Psychiatric: Denies behavioral changes and Denies confusion Endocrine Endocrine: Reports fatigue and Denies heat intolerance Hematologic/Lymphatic Hematologic/Lymphatic: Denies easy bleeding and Denies lymphadenopathy Allergic/Immunologic Allergic/Immunologic: Denies itchy eyes, Denies lip swelling, Denies throat swelling and Denies wheezing Pulmonology Exam Inpatient Vital signs and Labs for Last 24 Hours: Temp Pulse Resp BP Pulse Ox FiO2 99.2 F 85 20 139/59 L 91 L 60 03/05/22 08:00 03/05/22 08:00 03/05/22 08:00 03/05/22 08:00 03/05/22 08:00 03/05/22 05:53 Laboratory Results - last 24 hr 03/05/22 06:00: WBC 15.3 H, RBC 3.27 L, Hgb 10.1 L, Hct 31.6 L, MCV 96.8, MCH 30.8, MCHC 31.8, RDW 15.0, Plt Count 286, MPV 8.5, Neut % (Auto) 86.1 H, Lymph % (Auto) 7.2 L, [place] % (Auto) 5.0, Eos % (Auto) 1.1, Baso % (Auto) 0.5, Neut # (Auto) 13.2 H, Lymph # (Auto) 1.1, [place] # (Auto) 0.8, Eos # (Auto) 0.2, Baso # (Auto) 0.1, Total Counted 100, Neutrophils % (Manual) 92 H, Band Neutrophils % 1.0, Lymphocytes % (Manual) 5 L, Monocytes % (Manual) 2, Platelet Estimate Normal, Hypochromasia 1+, Macrocytosis 1+ 03/05/22 06:00: Sodium 141, Potassium 3.2 L, Chloride 95 L, Carbon Dioxide 42 H*, Anion Gap 7.2, BUN 23 H, Creatinine 0.90, Estimated Creat Clear 57, Estimated GFR 61, Est GFR ( Amer) 74, Glucose 114 H D, Calcium 8.1 L, Total Bilirubin 0.2, AST 28, ALT 23, Alkaline Phosph
--- NOTE | 2022-03-05 10:11 | PC.NURSE ---
pure wick in place to accurately measure output
[2022-03-05 10:47] LABS: ABG Base Excess 18.3 mmol/L (-2.4-2.3); ABG HCO3 42.8 mmhg (22.0-26.0); ABG Oxygen Saturation 90 % (90-100); ABG PH 7.42 mmol/L (7.35-7.45); ABG PO2 53.5 mmhg (80-100); ABG TCO2 44.8 mmhg (23-27)
--- NOTE | 2022-03-05 10:47 | EXP.PHA.PN ---
Subjective *Date: 03/05/22 *Time: 10:47 Medical Exam Vital signs and Labs for Last 24 Hours: Vital Signs Temp Pulse Pulse Resp BP Pulse Ox FiO2 03/05/22 08:00 99.2 F 85 20 139/59 L 91 L 03/04/22 11:30 78 20 03/05/22 05:53 79 03/05/22 05:53 83 03/05/22 05:53 90 L 60 03/05/22 03:42 98.9 F 76 18 120/54 L 92 L 03/05/22 00:00 98.6 F 76 18 157/69 H 93 L 03/04/22 23:39 83 03/04/22 23:39 88 03/04/22 20:00 95 60 03/04/22 20:00 98.7 F 83 20 158/67 H 98 03/04/22 16:00 99.0 F 81 20 162/72 H 98 03/04/22 18:43 60 03/04/22 18:38 81 03/04/22 18:38 84 03/04/22 12:00 98.5 F 77 20 146/77 H 97 03/04/22 11:20 83 03/04/22 11:20 86 Intake and Output 03/04/22 03/05/22 03/05/22 23:59 07:59 15:59 Intake Total 695 / 1935 240 / 480 240 / 480 Balance 695 / 1935 240 / 480 240 / 480 Intake: Intake, Oral Amount 360 / 1200 240 / 480 240 / 480 Infusion Intake 335 / 335 0.9 % Sodium Chloride 1,000 ml 335 / 335 @ 75 mls/hr IV .[id number] [facility] Rx# :[id number] Other: Number of Unmeasured Voids 1 1 Number of Urine Attends/Diapers 1 Weight 73.284 kg 73.284 kg Patient Weight 03/05/22 23:59 Weight 73.284 kg Laboratory Results - last 24 hr 03/05/22 06:00: WBC 15.3 H, RBC 3.27 L, Hgb 10.1 L, Hct 31.6 L, MCV 96.8, MCH 30.8, MCHC 31.8, RDW 15.0, Plt Count 286, MPV 8.5, Neut % (Auto) 86.1 H, Lymph % (Auto) 7.2 L, [place] % (Auto) 5.0, Eos % (Auto) 1.1, Baso % (Auto) 0.5, Neut # (Auto) 13.2 H, Lymph # (Auto) 1.1, [place] # (Auto) 0.8, Eos # (Auto) 0.2, Baso # (Auto) 0.1, Total Counted 100, Neutrophils % (Manual) 92 H, Band Neutrophils % 1.0, Lymphocytes % (Manual) 5 L, Monocytes % (Manual) 2, Platelet Estimate Normal, Hypochromasia 1+, Macrocytosis 1+ 03/05/22 06:00: Sodium 141, Potassium 3.2 L, Chloride 95 L, Carbon Dioxide 42 H*, Anion Gap 7.2, BUN 23 H, Creatinine 0.90, Estimated Creat Clear 57, Estimated GFR 61, Est GFR ( Amer) 74, Glucose 114 H D, Calcium 8.1 L, Total Bilirubin 0.2, AST 28, ALT 23, Alkaline Phosphatase 126, Total Protein 6.1 L, Albumin 2.9 L, Globulin 3.2, Albumin/Globulin Ratio 0.9 L 03/05/22 06:00: Phosphorus 3.2 I & O for Labs for Last 24 Hours: Intake & Output 03/02/22 03/03/22 03/04/22 03/05/22 23:59 23:59 23:59 23:59 Intake Total 1540 / 1540 1935 / 1935 480 / 480 Output Total 550 / 550 0 / 0 Balance 990 / 990 1935 / 1935 480 / 480 Weight 71.781 kg 72.665 kg 72 kg 73.284 kg Microbiology Reports for the Last 24 Hours: Microbiology 03/02/22 14:25 Blood Blood Culture - Preliminary NO GROWTH AFTER 48 HOURS 03/02/22 14:25 Blood Blood Culture - Preliminary NO GROWTH AFTER 48 HOURS The patient's infection will respond to the chosen ABx?: Yes (PNEUMONIA, BLOOD CX NEGATIVE, SPUTUM UNCOLLECTED) Is the patient receiving the right drug, dose, and route?: Yes Could a more targeted ABx be ordered?: No
[2022-03-05 10:49] LABS: Allen's Test Acceptable; Source Right Radial
--- NOTE | 2022-03-05 13:42 | PC.NURSE ---
RESP CARE NOTE: Pt SPO2 at 88% on 30L/60% FIO2, pt also complains of SOA. Vapotherm increased to 40L/60% FIO2. Will continue to continuously monitor patient.
[2022-03-05 15:34] LABS: Adenovirus,PCR Not Detected (NotDetected); Bordetella Pertussis Not Detected (NotDetected); Chlamydophila Pneumoniae, PCR Not Detected (NotDetected); Coronavirus 19, PCR Not Detected (NotDetected); Coronavirus 229E Not Detected (NotDetected); Coronavirus NL63 Not Detected (NotDetected); Coronavirus OC43 Not Detected (NotDetected); Coronovirus HKU1,PCR Not Detected (NotDetected); Human Metapneumovirus Not Detected (NotDetected); Influenza A, PCR Not Detected (NotDetected); Influenza AH1, 2009 Not Detected (NotDetected); Influenza AH1, PCR Not Detected (NotDetected); Influenza AH3,PCR Not Detected (NotDetected); Influenza B, PCR Not Detected (NotDetected); Mycoplasma Pneumoniae, PCR Not Detected (NotDetected); Parainfluenza 1, PCR Not Detected (NotDetected); Parainfluenza 2, PCR Not Detected (NotDetected); Parainfluenza 3, PCR Not Detected (NotDetected); Parainfluenza 4, PCR Not Detected (NotDetected); Respiratory Syncytial Virus Not Detected (NotDetected); Rhinovirus/Enterovirus Not Detected (NotDetected)
--- NOTE | 2022-03-05 20:49 | PC.NURSE ---
upon assessment pts IV does not flush. attempted to start new IV and unable.
--- NOTE | 2022-03-05 21:05 | PC.NURSE ---
Pt is A/ox4. She is on Vapotherm 40/60. She had a few episodes of vomiting through out the shift. She states that she feels a little better now. She has been in the bed, with brief and purewick in place. She has no complaints or needs at this time.
--- NOTE | 2022-03-05 21:31 | PC.NURSE ---
pt slightly lethargic. DESIGNATED BROKER Hayden contacted regarding night medications. Orders received to hold scheduled doses of Olanzapine, Trazodone, and Melatonin for now
[2022-03-06] VITALS (11 sets, daily range): BP systolic 114–174; BP diastolic 52–85; PULSE 65–90; RESP 18–20; TEMP 36.7–37.1; O2SAT 93–97; BMI 26.3
--- NOTE | 2022-03-06 03:01 | PC.NURSE ---
Pts o2 sats maintaining 80-81%. PRODUCTION CONTROL ANALYST Hayden made aware, no new orders at this time. Pt remains on CPAP 10 100%
--- NOTE | 2022-03-06 03:57 | PC.NURSE ---
Pt remains on Vapotherm 40L 60% FIO2. O2 sat >90%. Rhonchi noted. Pt A&O to person, place, and situation. 20 LFA saline locked.
[2022-03-06 07:31] LABS: Basophils # 0.1 K/mm3 (0-0.2); Basophils % 0.5 % (0.1-2.0); Eosinophils # 0.1 K/mm3 (0.0-0.4); Eosinophils % 0.6 % (0.1-12.0); Hematocrit 35.7 % (37.0-47.0); Hemoglobin 10.9 g/dL (12.2-16.2); Lymphocytes % 7.2 % (10-50); Mean Corpuscular HGB Conc 30.4 g/dL (31.8-35.4); Mean Corpuscular Hemoglobin 29.8 pg (27.0-31.2); Mean Corpuscular Volume 98.2 fl (81-99); Mean Platelet Volume 8.9 fl (7.4-10.4); Monocytes # 0.7 K/mm3 (0.1-1.0); Monocytes % 5.4 % (1.7-9.3); Neutrophils # 11.9 K/mm3 (1.8-7.8); Neutrophils % 86.3 % (37.0-80.0); Platelet Count 346 K/mm3 (142-424); Red Blood Count 3.64 M/mm3 (4.20-5.40); Red Cell Distribution Width 14.6 % (11.5-17.5); White Blood Count 13.8 K/mm3 (4.8-10.8)
[2022-03-06 07:36] LABS: Chloride 92 mmol/L (98-107); Potassium 3.8 mmoL/L (3.5-5.1); Sodium 142 mmol/L (136-145)
[2022-03-06 07:38] LABS: Alanine Aminotransferase 26 U/L (12-78); Blood Urea Nitrogen 25 mg/dl (7-17); Creatinine Clearance Estimated 56 mL/min (50-200); Estimated Glomerular Filt Rate 70 ml/min (>60); GFR (African American) 85 ML/MIN (>60)
[2022-03-06 07:39] LABS: Albumin Level 2.9 g/dl (3.5-5.0); Albumin/Globulin Ratio 0.9 (1.1-1.8); Alkaline Phosphatase 127 U/L (38-126); Aspartate Amino Transferase 27 U/L (14-36); Bilirubin,Total 0.3 mg/dl (0.2-1.3); Globulin 3.2 g/dL (1.3-3.2); Glucose 111 mg/dl (74-100); Total Protein,Serum 6.1 g/dl (6.3-8.2)
[2022-03-06 07:41] LABS: MANUAL DIFFERENTIAL MANUAL DIFFERENTIAL (MANUAL DIFF)
[2022-03-06 07:45] LABS: C-Reactive Protein 269.7 mg/L (0-4)
[2022-03-06 07:47] LABS: Anion Gap 9.8 mEq/L (5-15); Carbon Dioxide 44 mmol/L (22.0-30.0)
[2022-03-06 08:09] LABS: Erythrocyte Sedimentation Rate 105 mm/hr (0-30)
[2022-03-06 08:37] LABS: Anisocytosis 1+; Hypochromasia 1+; Lymphocytes % 4 % (10-50); Monocytes % 4 % (2-9); Neutrophils % 92 % (42-76); Platelet Estimate Normal; Poikilocytosis 1+; Total Cells Counted 100
--- NOTE | 2022-03-06 09:38 | EXP.PULM.PN ---
Subjective *Date: 03/06/22 *Time: 11:47 Interval history: Patient denies any significant improvement in her respiratory symptoms. Pulmonology Exam Inpatient Vital signs and Labs for Last 24 Hours: Temp Pulse Resp BP Pulse Ox FiO2 98.4 F 90 20 174/85 H 96 60 03/06/22 08:00 03/06/22 08:00 03/06/22 08:00 03/06/22 08:00 03/06/22 08:00 03/06/22 05:40 Laboratory Results - last 24 hr 03/05/22 10:37: Specimen Source Right radial, O2 % 20l 40%, ABG pH 7.42, ABG pCO2 67.0 H, ABG pO2 53.5 L, ABG HCO3 42.8 H, ABG Total CO2 44.8 H, ABG O2 Saturation 90, ABG Base Excess 18.3 H, Wesley Test Acceptable 03/05/22 15:27: Chlamy pneumoniae PCR Not detected, Adenovirus (PCR) Not detected, B. pertussis DNA (PCR) Not detected, Coronavirus OC43 (PCR) Not detected, Coronavirus HKU1 (PCR) Not detected, Coronavirus 229E (PCR) Not detected, SARS-CoV-2 (PCR) Not detected, Coronavirus NL63 (PCR) Not detected, Human Metapneumovir PCR Not detected, Influenza A (H1) PCR Not detected, Influ A (H1N1/09) PCR Not detected, Influenza A (H3) PCR Not detected, Influenza Type A (PCR) Not detected, Influenza Type B (PCR) Not detected, M. pneumoniae (PCR) Not detected, Parainfluenza 1 (PCR) Not detected, Parainfluenza 2 (PCR) Not detected, Parainfluenza 3 (PCR) Not detected, Parainfluenza 4 (PCR) Not detected, RSV (PCR) Not detected, Entero/Rhino (PCR) Not detected 03/06/22 06:47: WBC 13.8 H, RBC 3.64 L, Hgb 10.9 L, Hct 35.7 L, MCV 98.2, MCH 29.8, MCHC 30.4 L, RDW 14.6, Plt Count 346, MPV 8.9, Neut % (Auto) 86.3 H, Lymph % (Auto) 7.2 L, [place] % (Auto) 5.4, Eos % (Auto) 0.6, Baso % (Auto) 0.5, Neut # (Auto) 11.9 H, Lymph # (Auto) 1.0, [place] # (Auto) 0.7, Eos # (Auto) 0.1, Baso # (Auto) 0.1, Total Counted 100, Neutrophils % (Manual) 92 H, Lymphocytes % (Manual) 4 L, Monocytes % (Manual) 4, Platelet Estimate Normal, Hypochromasia 1+, Poikilocytosis 1+, Anisocytosis 1+ 03/06/22 06:47: Sodium 142, Potassium 3.8, Chloride 92 L, Carbon Dioxide 44 H*, Anion Gap 9.8, BUN 25 H, Creatinine 0.80, Estimated Creat Clear 56, Estimated GFR 70, Est GFR ( Amer) 85, Glucose 111 H, Calcium 8.0 L, Total Bilirubin 0.3, AST 27, ALT 26, Alkaline Phosphatase 127 H, C-Reactive Protein 269.7 H, Total Protein 6.1 L, Albumin 2.9 L, Globulin 3.2, Albumin/Globulin Ratio 0.9 L 03/06/22 06:47: ESR 105 H I & O for Labs for Last 24 Hours: Intake & Output 03/03/22 03/04/22 03/05/22 03/06/22 23:59 23:59 23:59 23:59 Intake Total 1540 / 1540 1934 720 / 720 Output Total 550 / 550 0 / 0 1300 / 1700 400 / 400 Balance 990 / 990 1934 / 1934 -580 / -980 -400 / -400 Weight 160 lb 3.2 oz 158 lb 11.725 oz 161 lb 9 oz 158 lb 1 oz Microbiology Reports for the Last 24 Hours: Microbiology 03/02/22 14:25 Blood Blood Culture - Preliminary NO GROWTH AFTER 48 HOURS 03/02/22 14:25 Blood Blood Culture - Preliminary NO GROWTH AFTER 48 HOURS Constitutional: Present moderate distress Head: Present normocephalic and atraumatic ENT: Present normal exam, normal oropharynx and mucous membranes moist Neck: Present normal inspection and full ROM Respiratory: Present respiratory distress, diminished air movement and able to speak in complete sentences; Absent accessory muscle use, wheezes or crackles Cardiac: Present S1/S2, Tachycardia and radial pulses present GI: Present soft and distention; Absent tenderness or guarding Rectal (female): Present deferred (female): Present deferred Skin: Present intact; Absent cyanosis or jaundice Neuro: Present alert, awake and oriented x 3 Extremities: Present normal inspection; Absent clubbing or cyanosis Psychiatric: Present normal affect and cooperative Assessment and Plan *Assessment and plan (1) HAP (hospital-acquired pneumonia): Status: Acute Category: Medical Code(s): J18.9 - Pneumonia, unspecified organism; Y95 - Nosocomial condition (2) Acute respiratory failure with hypoxia:
--- NOTE | 2022-03-06 11:46 | EXP.ACUTE.PN ---
Subjective *Date: 03/06/22 *Time: 20:10 Interval history: Stable on Vapotherm. Tolerating 60% with sats in the mid 90s. Denies any chest pain or worsening shortness of breath. No headache. No confusion. Complains of nausea and heartburn. Denies diarrhea. Afebrile and hemodynamically stable Medical Exam Vital signs and Labs for Last 24 Hours: Vital Signs Temp Pulse Pulse Resp BP Pulse Ox FiO2 03/06/22 11:15 82 03/06/22 11:15 79 03/06/22 11:15 97 60 03/06/22 08:00 98.4 F 90 20 174/85 H 96 03/06/22 05:40 85 03/06/22 05:40 85 03/06/22 05:40 94 L 60 03/06/22 04:00 80 03/06/22 00:00 80 03/06/22 03:52 98.2 F 87 20 131/60 95 03/06/22 00:00 60 03/05/22 20:00 60 03/06/22 00:00 98.8 F 89 18 149/79 H 93 L 03/05/22 22:49 102 H 03/05/22 22:49 99 H 03/05/22 22:49 60 03/05/22 20:00 98.5 F 106 H 18 125/56 L 92 L 03/05/22 18:04 89 03/05/22 18:04 92 L 60 03/05/22 16:00 98.8 F 89 22 127/59 L 96 03/05/22 12:00 99.5 F 73 18 134/69 94 L Intake and Output 03/05/22 03/06/22 03/06/22 23:59 07:59 15:59 Output Total 500 / 1700 400 / 400 Balance -500 / -980 -400 / -400 Output: Output, Urine Amount 500 / 1700 400 / 400 Other: Weight 71.696 kg Patient Weight 03/06/22 23:59 Weight 71.696 kg Laboratory Results - last 24 hr 03/05/22 15:27: Chlamy pneumoniae PCR Not detected, Adenovirus (PCR) Not detected, B. pertussis DNA (PCR) Not detected, Coronavirus OC43 (PCR) Not detected, Coronavirus HKU1 (PCR) Not detected, Coronavirus 229E (PCR) Not detected, SARS-CoV-2 (PCR) Not detected, Coronavirus NL63 (PCR) Not detected, Human Metapneumovir PCR Not detected, Influenza A (H1) PCR Not detected, Influ A (H1N1/09) PCR Not detected, Influenza A (H3) PCR Not detected, Influenza Type A (PCR) Not detected, Influenza Type B (PCR) Not detected, M. pneumoniae (PCR) Not detected, Parainfluenza 1 (PCR) Not detected, Parainfluenza 2 (PCR) Not detected, Parainfluenza 3 (PCR) Not detected, Parainfluenza 4 (PCR) Not detected, RSV (PCR) Not detected, Entero/Rhino (PCR) Not detected 03/06/22 06:47: WBC 13.8 H, RBC 3.64 L, Hgb 10.9 L, Hct 35.7 L, MCV 98.2, MCH 29.8, MCHC 30.4 L, RDW 14.6, Plt Count 346, MPV 8.9, Neut % (Auto) 86.3 H, Lymph % (Auto) 7.2 L, [place] % (Auto) 5.4, Eos % (Auto) 0.6, Baso % (Auto) 0.5, Neut # (Auto) 11.9 H, Lymph # (Auto) 1.0, [place] # (Auto) 0.7, Eos # (Auto) 0.1, Baso # (Auto) 0.1, Total Counted 100, Neutrophils % (Manual) 92 H, Lymphocytes % (Manual) 4 L, Monocytes % (Manual) 4, Platelet Estimate Normal, Hypochromasia 1+, Poikilocytosis 1+, Anisocytosis 1+ 03/06/22 06:47: Sodium 142, Potassium 3.8, Chloride 92 L, Carbon Dioxide 44 H*, Anion Gap 9.8, BUN 25 H, Creatinine 0.80, Estimated Creat Clear 56, Estimated GFR 70, Est GFR ( Amer) 85, Glucose 111 H, Calcium 8.0 L, Total Bilirubin 0.3, AST 27, ALT 26, Alkaline Phosphatase 127 H, C-Reactive Protein 269.7 H, Total Protein 6.1 L, Albumin 2.9 L, Globulin 3.2, Albumin/Globulin Ratio 0.9 L 03/06/22 06:47: ESR 105 H I & O for Labs for Last 24 Hours: Intake & Output 03/03/22 03/04/22 03/05/22 03/06/22 23:59 23:59 23:59 23:59 Intake Total 1540 / 1540 1934 / 1934 720 / 720 Output Total 550 / 550 0 / 0 1300 / 1700 400 / 400 Balance 990 / 990 1934 / 1934 -580 / -980 -400 / -400 Weight 72.665 kg 72 kg 73.284 kg 71.696 kg Constitutional: Present mild distress, average body habitus and chronically ill appearing Head: Present atraumatic and normocephalic ENT: Present normal exam Neck: Present normal inspection Respiratory: Present accessory muscle use, rhonchi and crackles; Absent wheezes Cardiac: Present Reg Rate and Rhythm GI: Present soft and normal bowel sounds; Absent distention or tenderness Extremities: Present normal inspection, full ROM and edema (trace BLE) Skin: Present intact; Absent erythema Neuro: Pr
--- NOTE | 2022-03-06 11:47 | XR_ITS ---
FINAL REPORT CLINICAL HISTORY: Hypoxia FINDINGS: A single portable view of the chest was obtained. There is cardiomegaly. There is pulmonary vascular congestion. The mediastinum is within normal limits. There are bilateral pulmonary opacities consistent with pneumonia or edema. There are small pleural effusions. The bony thorax is intact. IMPRESSION: Findings consistent with bilateral pneumonia or edema. Small pleural effusions. Reviewed, Interpreted and Dictated by Joaquín Ceballos III, MD Transcribed by Tracey Ko Authenticated and . [facility]
--- NOTE | 2022-03-06 13:16 | DIET.NUTRFU ---
Patients po intake has declined, noted to have nausea and vomiting 03/05 and 03/06. Continues on ABT tx which may cause GI distress. Zofran in place. No BM noted, meds in place. Received diuretic tx 03/05 and again today, which reported to improve respiratory condition. Minimal output noted 03/03 and 03/04, urine output 03/05 was 1300ml and already 1300ml today. Hydration labs WNL. When GI issues resolve may benefit from supplements
--- NOTE | 2022-03-06 17:31 | PC.NURSE ---
VS stable, patient remained on vapotherm with no changes. Patient began coughing with sips of water, Dr. Hernandez notified. Also notified of patient vomiting with food intake. Enema ordered a its been several days with no bowel movement. No bowel movement on this shift. No complaints of vomiting or nausea.
--- NOTE | 2022-03-06 19:15 | XR_ITS ---
PROCEDURE INFORMATION: Exam: XR Abdomen Exam date and time: 03/06/2022 7:29 PM Age: 76 years old Clinical indication: Nausea and vomiting; Additional info: Nausea and emesis TECHNIQUE: Imaging protocol: Radiologic exam of the abdomen. Views: Frontal supine view of the abdomen. 1 View. COMPARISON: CT ABDOMEN PELVIS WO CON 11/26/2021 11:29 PM FINDINGS: Gastrointestinal tract: Normal. No bowel dilation. Bones/joints: Unremarkable. IMPRESSION: No acute findings.
[2022-03-07] VITALS (10 sets, daily range): BP systolic 110–156; BP diastolic 51–84; PULSE 69–88; RESP 16–24; TEMP 36.8–37.3; O2SAT 91–95; BMI 26.2
--- NOTE | 2022-03-07 06:04 | PC.NURSE ---
Pt is A&O to person, place, and situation. pt remains on vapotherm 40L 60% FIO2, O2 sats remain >90%. Wheezes and Rhonchi noted. BS active, abdomen soft and non-tender. Pt is incontinent and voids per brief and purewick. no skin issues noted.
[2022-03-07 06:49] LABS: Basophils # 0.1 K/mm3 (0-0.2); Basophils % 0.5 % (0.1-2.0); Eosinophils # 0.1 K/mm3 (0.0-0.4); Eosinophils % 1.1 % (0.1-12.0); Hematocrit 35.5 % (37.0-47.0); Hemoglobin 10.5 g/dL (12.2-16.2); Lymphocytes # 1.2 K/mm3 (0.7-4.5); Lymphocytes % 9.1 % (10-50); Mean Corpuscular HGB Conc 29.5 g/dL (31.8-35.4); Mean Corpuscular Hemoglobin 29.7 pg (27.0-31.2); Mean Corpuscular Volume 100.6 fl (81-99); Mean Platelet Volume 8.3 fl (7.4-10.4); Monocytes # 0.8 K/mm3 (0.1-1.0); Monocytes % 6.2 % (1.7-9.3); Neutrophils # 10.8 K/mm3 (1.8-7.8); Neutrophils % 83.1 % (37.0-80.0); Platelet Count 362 K/mm3 (142-424); Red Blood Count 3.53 M/mm3 (4.20-5.40); Red Cell Distribution Width 14.7 % (11.5-17.5)
[2022-03-07 07:01] LABS: Chloride 86 mmol/L (98-107); Potassium 3.6 mmoL/L (3.5-5.1); Sodium 140 mmol/L (136-145)
[2022-03-07 07:03] LABS: Blood Urea Nitrogen 33 mg/dl (7-17); Creatinine Clearance Estimated 56 mL/min (50-200); Estimated Glomerular Filt Rate 70 ml/min (>60); GFR (African American) 85 ML/MIN (>60)
[2022-03-07 07:04] LABS: Alanine Aminotransferase 26 U/L (12-78); Albumin Level 3.4 g/dl (3.5-5.0); Albumin/Globulin Ratio 0.9 (1.1-1.8); Alkaline Phosphatase 133 U/L (38-126); Aspartate Amino Transferase 27 U/L (14-36); Bilirubin,Total 0.4 mg/dl (0.2-1.3); Total Protein,Serum 7.4 g/dl (6.3-8.2)
[2022-03-07 07:05] LABS: Calcium 8.6 mg/dl (8.4-10.2); Glucose 103 mg/dl (74-100)
[2022-03-07 07:33] LABS: Anion Gap 13.6 mEq/L (5-15); Carbon Dioxide 44 mmol/L (22.0-30.0)
[2022-03-07 08:48] LABS: Vancomycin,Trough 7.8 ug/mL (5.0-10.0)
--- NOTE | 2022-03-07 09:55 | EXP.PULM.PN ---
Subjective *Date: 03/07/22 *Time: 12:17 Interval history: No acute respiratory events overnight. Admits only minimal improvement in her respiratory status. Pulmonology Exam Inpatient Vital signs and Labs for Last 24 Hours: Temp Pulse Resp BP Pulse Ox FiO2 98.7 F 84 18 156/75 H 92 L 60 03/07/22 08:00 03/07/22 08:00 03/07/22 08:00 03/07/22 08:00 03/07/22 08:00 03/07/22 05:30 Laboratory Results - last 24 hr 03/07/22 06:09: WBC 13.0 H, RBC 3.53 L, Hgb 10.5 L, Hct 35.5 L, MCV 100.6 H, MCH 29.7, MCHC 29.5 L, RDW 14.7, Plt Count 362, MPV 8.3, Neut % (Auto) 83.1 H, Lymph % (Auto) 9.1 L, [place] % (Auto) 6.2, Eos % (Auto) 1.1, Baso % (Auto) 0.5, Neut # (Auto) 10.8 H, Lymph # (Auto) 1.2, [place] # (Auto) 0.8, Eos # (Auto) 0.1, Baso # (Auto) 0.1 03/07/22 06:09: Sodium 140, Potassium 3.6, Chloride 86 L, Carbon Dioxide 44 H*, Anion Gap 13.6, BUN 33 H D, Creatinine 0.80, Estimated Creat Clear 56, Estimated GFR 70, Est GFR ( Amer) 85, Glucose 103 H, Calcium 8.6, Total Bilirubin 0.4, AST 27, ALT 26, Alkaline Phosphatase 133 H, Total Protein 7.4, Albumin 3.4 L D, Globulin 4.0 H, Albumin/Globulin Ratio 0.9 L 03/07/22 08:02: Vancomycin Trough 7.8 I & O for Labs for Last 24 Hours: Intake & Output 03/04/22 03/05/22 03/06/22 03/07/22 23:59 23:59 23:59 23:59 Intake Total 1934 720 / 720 360 / 360 240 / 240 Output Total 0 / 0 1300 / 1700 1300 / 1300 900 / 900 Balance 1934 -580 / -980 -940 / -940 -660 / -660 Weight 158 lb 11.725 oz 161 lb 9 oz 158 lb 1 oz 157 lb 3.2 oz Microbiology Reports for the Last 24 Hours: Microbiology 03/02/22 14:25 Blood Blood Culture - Preliminary NO GROWTH AFTER 48 HOURS 03/02/22 14:25 Blood Blood Culture - Preliminary NO GROWTH AFTER 48 HOURS Constitutional: Present moderate distress Head: Present normocephalic and atraumatic ENT: Present normal exam, normal oropharynx and mucous membranes moist Neck: Present normal inspection and full ROM Respiratory: Present respiratory distress, diminished air movement and able to speak in complete sentences; Absent accessory muscle use, wheezes or crackles Cardiac: Present S1/S2, Tachycardia and radial pulses present GI: Present soft and distention; Absent tenderness or guarding Rectal (female): Present deferred (female): Present deferred Skin: Present intact; Absent cyanosis or jaundice Neuro: Present alert, awake and oriented x 3 Extremities: Present normal inspection; Absent clubbing or cyanosis Psychiatric: Present normal affect and cooperative Assessment and Plan *Assessment and plan (1) HAP (hospital-acquired pneumonia): Status: Acute Category: Medical Code(s): J18.9 - Pneumonia, unspecified organism; Y95 - Nosocomial condition (2) Acute respiratory failure with hypoxia: Status: Acute Category: Medical Code(s): J96.01 - Acute respiratory failure with hypoxia (3) Respiratory failure with hypoxia and hypercapnia: Status: Acute Category: Medical Code(s): J96.91 - Respiratory failure, unspecified with hypoxia; J96.92 - Respiratory failure, unspecified with hypercapnia Plan #Acute hypoxic and hypercarbic respiratory failure: #Hospital-acquired pneumonia: 76-year-old presented to the hospital on 03/02/2020 with worsening cough and shortness of breath. Chest x-ray on admission showed consolidation showing evidence of hypercarbic respiratory failure. She was initiated on treatment for CAP with ceftriaxone and azithromycin along with steroids and nebulization For COPD exacerbation. Chest x-ray from admission showed bilateral lower lobe airspace disease right greater than left. Chest x-ray from today improving right lower lobe, worsenign RUL airspace disease -antibiotics were escalated to vancomycin and Cefepime and today pulmonary was called for further evaluation Blood cultures pending. COVID-19 and flu PCR negative. ABG from a
--- NOTE | 2022-03-07 10:03 | HMH.SLDYSPHA ---
Speech & Language Evaluation Speech/Language Dysphagia Evaluation Start: 03/07/22 09:52 Freq: ONCE Status: Active Protocol: Document 03/07/22 09:52 WILLIE (Rec: 03/07/22 10:03 NATALICRISTAL [id number]) Dysphagia Assess/Goals/Plan Assessment Date of Evaluation: 03/07/22 Evaluation Type Initial Certification Assessment/Problems Clinical bedside swallow evaluation completed per MD order. Does Patient Qualify for Service Yes Qualify/Failure Comment 2' change in diet recommendations, TRUCK DESPATCHER will f/u with patient for diet tolerance. Recommendations PHYSICIAN CERTIFICATION: The specified therapy services are required, authorized, and reviewed every 30 days. Pt will be seen # times/week 1 for # weeks 1 Diet Recommendations Mechanical Soft Liquid Type Recommendations [place] Consistency SL Swallow Guidelines Standard Aspiration Prec.,Eat at slow rate Dysphagia Swallow Precautions/Strategies Sitting Upright (90 deg),No Straw,Small Bites and Sips, Alternate Liquids/Solids Plan Anticipate reaching STG in # weeks 1 Anticipate reaching LTG in # weeks 1 Pt/Guardian verbally ack understanding Yes of dx/prognosis/goals Pt/Guardian verbally ack understanding No of/consent to tx prog G -code Required No STG-Other Comment/Non-Specific Pt will demonstrate diet tolerance with 100% accuracy based on clinical observation and nursing/pt report. Automatic Gluing Machine Operator Goals Diet mechanical soft/ground with Liquids [place] Thick Education Instructions provided Discussed CSE results and diet recommendations, as well as aspiration precautions with pt , nursing, and care management who expressed understanding. Pt/Caregiver able to recall information Able to recall/restate Reinforcement needed No Speech & Language HPI History Present Illness Description of Patient Problem Per ER report, Patient is a 76-year-old woman with past medical history of hypertension depression, and diastolic heart failure who came to the ER today for 2 weeks of cough and shortness of breath. Review of systems is negative aside from her
--- NOTE | 2022-03-07 10:13 | EXP.PHA.CONS ---
Pharmacy Consult Date: 03/07/22 Time: 10:13 Referring provider: DR FLORES Reason for Consult:: VANCOMYCIN TROUGH LEVEL OBTAINED Allergies Allergy/AdvReac Type Severity Reaction Status Date / Time No Known Allergies Allergy Verified 02/14/22 08:58 Home Medications Medication Instructions Recorded Confirmed Type fluoxetine 40 mg capsule 40 mg PO DAILY Depression 03/27/21 03/02/22 History olanzapine 7.5 mg tablet 7.5 mg PO HS Anxiety 03/27/21 03/02/22 History melatonin 5 mg tablet 5 mg PO HS Insomnia 03/28/21 03/02/22 History metoprolol tartrate 25 mg tablet 12.5 mg PO BID Hypertension 03/02/22 03/03/22 History trazodone 50 mg tablet 25 mg PO DAILY Insomnia 03/02/22 03/02/22 History acetaminophen 500 mg tablet 500 mg PO Q6HP PRN Fever Or Pain 03/03/22 03/03/22 History loperamide 2 mg capsule 2 mg PO Q4H PRN Diarrhea 03/03/22 03/03/22 History sennosides 8.6 mg tablet 8.6 mg PO DAILYP PRN Constipation 03/03/22 03/03/22 History New Prescriptions to Start Prescriptions: Height: 1.65 m Weight: 71.305 kg Laboratory Results:: Laboratory Results - last 24 hr 03/07/22 06:09: WBC 13.0 H, RBC 3.53 L, Hgb 10.5 L, Hct 35.5 L, MCV 100.6 H, MCH 29.7, MCHC 29.5 L, RDW 14.7, Plt Count 362, MPV 8.3, Neut % (Auto) 83.1 H, Lymph % (Auto) 9.1 L, [place] % (Auto) 6.2, Eos % (Auto) 1.1, Baso % (Auto) 0.5, Neut # (Auto) 10.8 H, Lymph # (Auto) 1.2, [place] # (Auto) 0.8, Eos # (Auto) 0.1, Baso # (Auto) 0.1 03/07/22 06:09: Sodium 140, Potassium 3.6, Chloride 86 L, Carbon Dioxide 44 H*, Anion Gap 13.6, BUN 33 H D, Creatinine 0.80, Estimated Creat Clear 56, Estimated GFR 70, Est GFR ( Amer) 85, Glucose 103 H, Calcium 8.6, Total Bilirubin 0.4, AST 27, ALT 26, Alkaline Phosphatase 133 H, Total Protein 7.4, Albumin 3.4 L D, Globulin 4.0 H, Albumin/Globulin Ratio 0.9 L 03/07/22 08:02: Vancomycin Trough 7.8 Medical History: Medical History (Updated 03/06/22 @ 20:11 by Kemar Flores MD) Acute respiratory failure with hypoxia Anxiety Arthritis of knee COVID-19 Diastolic dysfunction Dyspnea Effusion, left knee Elevated C-reactive protein (CRP) Elevated erythrocyte sedimentation rate [place] HAP (hospital-acquired pneumonia) HTN (hypertension) HTN (hypertension) Lacunar infarction Ovarian cancer Respiratory failure with hypoxia and hypercapnia Weakness Assessment and Plan Assessment and plan all Dx Assessment and Plan for all problems:: Pharmacokinetic dosing service Date: Time: Patient: Floor: Weight: 71.305 Kilograms Vancomycin single level analysis: Current dose being given: mg Current dosing interval: hrs Current infusion time (hrs): 2 Single level Trough Data: Trough level obtained: 7.8 mcg/ml Timing of trough - # of hrs before next dose: 0.5 Hrs Desired peak: 35 mcg/ml Desired trough: 12.5 mcg/ml Diagnosis: Relevant medical/social history: Cultures and sensitivities: Other labs: Estimated PK Parameters: New rate constant (lavelle): 0.061 hr-1 Half-life: 11.36 Hours Vd from levels: 49.91 Liters (0.7 L/kg) CLvanco=?? 3.045 L/hr Estimated New Dose and Interval Recommended dose: 1269.7 mg Recommended interval: 18.9 Hrs Recommendations: Give Vancomycin 1250 mg q 18 hrs. Infuse over 2 hrs Expected Cpeak: 35.4 mcg/mL Expected Ctrough: 13.3 mcg/mL AUC 0-24 /NEWTON Data: NEWTON 0.5 mcg/mL:?? AUC/NEWTON:? 1094.7 NEWTON 1.0 mcg/mL:?? AUC/NEWTON:? 547.3 Thank you for the consult
--- NOTE | 2022-03-07 13:30 | DIET.NUTRFU ---
Addendum entered by Pita Melendez, RD, LD 03/07/22 15:25: continues to have poor po intake today with nausea and vomiting, nursing offered zofran and patient declined. will continue to monitor po intake. Nursing did report some BM today, which may help abdominal discomfort. Original Note: Patient's po intake at breakfast showed some improvement at 50%. Yesterday patient's po intake was poor secondary to nausea. She has zofran available. She has also been receiving diuretic tx, which is improving edema and respiratory status. Urine output 03/05, 03/06 was 1300ml and already 900ml today. Hydration WNL. She also continues on protonix, ABT, BM regimen. INFORMATICS NURSE SPECIALIST saw patient today at bedside and recommended MSOFT ground with nectar liquids, no straws, alternate sips and solids and eat slow. Discharge plan is [place] when ready. Will continue to monitor po intake, supplements are in place
--- NOTE | 2022-03-07 19:40 | EXP.ACUTE.PN ---
Subjective *Date: 03/07/22 *Time: 19:40 Interval history: Stable on Vapotherm. Tolerating 60% with sats in the mid 90s. Minimal improvement overnight. Denies any chest pain or worsening shortness of breath. No headache. No confusion. No nausea complaint this morning. Has not thrown up today. Bowel movement this morning after bisacodyl suppository. Afebrile and hemodynamically stable Medical Exam Vital signs and Labs for Last 24 Hours: Vital Signs Temp Pulse Pulse Resp BP Pulse Ox FiO2 03/07/22 08:00 80 03/07/22 16:00 86 03/07/22 12:00 80 03/07/22 14:15 81 03/07/22 14:15 81 03/07/22 14:15 94 L 60 03/07/22 12:00 99.1 F 86 24 135/65 93 L 03/07/22 11:10 82 03/07/22 11:10 84 03/07/22 11:10 94 L 60 03/07/22 08:00 98.7 F 84 18 156/75 H 92 L 03/07/22 04:00 98.6 F 69 20 110/51 L 92 L 03/07/22 05:30 75 03/07/22 05:30 73 03/07/22 05:30 91 L 60 03/07/22 04:00 80 03/07/22 00:00 70 03/06/22 20:00 80 03/07/22 00:00 98.3 F 69 16 126/62 91 L 03/06/22 20:00 98.0 F 84 20 123/63 95 03/07/22 00:00 60 03/06/22 20:00 60 03/06/22 23:46 79 03/06/22 23:46 80 03/06/22 23:46 94 L 60 Intake and Output 03/07/22 03/07/22 03/07/22 07:59 15:59 23:59 Intake Total 240 / 480 240 / 480 Output Total 900 / 900 Balance -900 / -420 240 / -420 240 / -420 Intake: Intake, Oral Amount 240 / 480 240 / 480 Output: Output, Urine Amount 900 / 900 Other: Number of Unmeasured Voids 1 Number of Urine Attends/Diapers 0 Weight 71.305 kg 71.305 kg Patient Weight 03/07/22 23:59 Weight 71.305 kg Laboratory Results - last 24 hr 03/07/22 06:09: WBC 13.0 H, RBC 3.53 L, Hgb 10.5 L, Hct 35.5 L, MCV 100.6 H, MCH 29.7, MCHC 29.5 L, RDW 14.7, Plt Count 362, MPV 8.3, Neut % (Auto) 83.1 H, Lymph % (Auto) 9.1 L, [place] % (Auto) 6.2, Eos % (Auto) 1.1, Baso % (Auto) 0.5, Neut # (Auto) 10.8 H, Lymph # (Auto) 1.2, [place] # (Auto) 0.8, Eos # (Auto) 0.1, Baso # (Auto) 0.1 03/07/22 06:09: Sodium 140, Potassium 3.6, Chloride 86 L, Carbon Dioxide 44 H*, Anion Gap 13.6, BUN 33 H D, Creatinine 0.80, Estimated Creat Clear 56, Estimated GFR 70, Est GFR ( Amer) 85, Glucose 103 H, Calcium 8.6, Total Bilirubin 0.4, AST 27, ALT 26, Alkaline Phosphatase 133 H, Total Protein 7.4, Albumin 3.4 L D, Globulin 4.0 H, Albumin/Globulin Ratio 0.9 L 03/07/22 08:02: Vancomycin Trough 7.8 I & O for Labs for Last 24 Hours: Intake & Output 03/04/22 03/05/22 03/06/22 03/07/22 23:59 23:59 23:59 23:59 Intake Total 1934 720 / 720 360 / 360 480 / 480 Output Total 0 / 0 1300 / 1700 1300 / 1300 900 / 900 Balance 1934 -580 / -980 -940 / -940 -420 / -420 Weight 72 kg 73.284 kg 71.696 kg 71.305 kg Microbiology Reports for the Last 24 Hours: Microbiology 03/02/22 14:25 Blood Blood Culture - Final NO GROWTH AFTER 5 DAYS 03/02/22 14:25 Blood Blood Culture - Final NO GROWTH AFTER 5 DAYS 03/05/22 15:27 Nose - Nasal MRSA Culture - Final Negative Constitutional: Present mild distress, average body habitus and chronically ill appearing Head: Present atraumatic and normocephalic ENT: Present normal exam Neck: Present normal inspection Respiratory: Present accessory muscle use and crackles; Absent rhonchi or wheezes Cardiac: Present Reg Rate and Rhythm GI: Present soft and normal bowel sounds; Absent distention or tenderness Extremities: Present normal inspection, full ROM and edema (trace BLE) Skin: Present intact; Absent erythema Neuro: Present Grossly Intact, alert, awake, oriented x 3 and moves all extremities Assessment and Plan *Assessment and plan (1) Acute on chronic respiratory failure with hypoxia and hypercapnia: Status: Acute Category: Me
--- NOTE | 2022-03-07 20:17 | PC.NURSE ---
Pt has been up to [facility] and had 3 bowel Movements today.
[2022-03-08] VITALS (16 sets, daily range): BP systolic 118–152; BP diastolic 63–81; PULSE 67–87; RESP 16–18; TEMP 36.5–37.1; O2SAT 90–98; BMI 26.3
--- NOTE | 2022-03-08 06:18 | PC.NURSE ---
PATIENT HAS REMAINED ON HI PK 02 AT 30 LITER. 02 SATS DROP TO THE 80s WHEN UP MOVING. TELEMETRY SHOWS NSR. HAS PERSISTANT DRY COUGH AND COARSE EXPIRATORY WHEEZES BILAT. VOICES NO C/O PAIN.
[2022-03-08 08:34] LABS: Basophils # 0.1 K/mm3 (0-0.2); Basophils % 0.6 % (0.1-2.0); Eosinophils # 0.1 K/mm3 (0.0-0.4); Eosinophils % 1.3 % (0.1-12.0); Hematocrit 34.4 % (37.0-47.0); Hemoglobin 10.8 g/dL (12.2-16.2); Lymphocytes # 1.4 K/mm3 (0.7-4.5); Lymphocytes % 14.9 % (10-50); Mean Corpuscular HGB Conc 31.4 g/dL (31.8-35.4); Mean Corpuscular Hemoglobin 29.7 pg (27.0-31.2); Mean Corpuscular Volume 94.7 fl (81-99); Mean Platelet Volume 7.5 fl (7.4-10.4); Monocytes # 0.5 K/mm3 (0.1-1.0); Monocytes % 4.9 % (1.7-9.3); Neutrophils # 7.4 K/mm3 (1.8-7.8); Neutrophils % 78.4 % (37.0-80.0); Platelet Count 396 K/mm3 (142-424); Red Blood Count 3.63 M/mm3 (4.20-5.40); Red Cell Distribution Width 14.6 % (11.5-17.5); White Blood Count 9.5 K/mm3 (4.8-10.8)
[2022-03-08 08:38] LABS: Chloride 90 mmol/L (98-107); Potassium 3.3 mmoL/L (3.5-5.1); Sodium 140 mmol/L (136-145)
[2022-03-08 08:40] LABS: Alanine Aminotransferase 26 U/L (12-78); Alkaline Phosphatase 127 U/L (38-126); Aspartate Amino Transferase 33 U/L (14-36); Bilirubin,Total 0.5 mg/dl (0.2-1.3); Blood Urea Nitrogen 23 mg/dl (7-17); Creatinine Clearance Estimated 56 mL/min (50-200); Estimated Glomerular Filt Rate 70 ml/min (>60); GFR (African American) 85 ML/MIN (>60)
[2022-03-08 08:41] LABS: Albumin Level 3.4 g/dl (3.5-5.0); Albumin/Globulin Ratio 0.9 (1.1-1.8); Calcium 8.7 mg/dl (8.4-10.2); Glucose 124 mg/dl (74-100); Total Protein,Serum 7.4 g/dl (6.3-8.2)
[2022-03-08 08:53] LABS: Anion Gap 12.3 mEq/L (5-15); Carbon Dioxide 41 mmol/L (22.0-30.0)
--- NOTE | 2022-03-08 10:11 | EXP.PHA.PN ---
Subjective *Date: 03/08/22 *Time: 10:11 Medical Exam Vital signs and Labs for Last 24 Hours: Vital Signs Temp Pulse Pulse Resp BP Pulse Ox FiO2 03/08/22 08:00 98.5 F 78 16 138/67 94 L 03/08/22 05:20 86 03/08/22 05:20 85 03/08/22 05:20 98 60 03/08/22 04:00 67 03/08/22 04:00 97.7 F 79 16 149/76 H 95 03/08/22 00:00 73 03/07/22 20:00 83 03/08/22 00:00 98.5 F 71 18 152/77 H 95 03/08/22 01:51 71 03/08/22 01:51 70 03/07/22 20:00 93 L 03/07/22 20:00 98.7 F 87 20 119/84 93 L 03/07/22 21:21 88 03/07/22 21:21 88 03/07/22 21:21 94 L 60 03/07/22 16:00 98.5 F 84 20 138/67 95 03/07/22 16:00 86 03/07/22 12:00 80 03/07/22 14:15 81 03/07/22 14:15 81 03/07/22 14:15 94 L 60 03/07/22 12:00 99.1 F 86 24 135/65 93 L 03/07/22 11:10 82 03/07/22 11:10 84 03/07/22 11:10 94 L 60 Intake and Output 03/07/22 03/08/22 03/08/22 23:59 07:59 15:59 Intake Total 240 / 480 100 / 340 240 / 340 Output Total 0 / 900 0 / 0 Balance 240 / -420 100 / 340 240 / 340 Intake: Intake, Oral Amount 240 / 480 240 / 240 Intake, Total IV Amount 100 / 100 Cefepime HCl 2 gm In 0.9 % 100 / 100 Sodium Chloride 100 ml @ 200 mls/hr IV Q12H [facility] Rx#:[id number] Output: Output, Urine Amount 0 / 900 0 / 0 Other: Number of Voids 0 Number of Unmeasured Voids 1 1 1 Weight 71.606 kg Patient Weight 03/08/22 23:59 Weight 71.606 kg Laboratory Results - last 24 hr 03/08/22 08:13: WBC 9.5 D, RBC 3.63 L, Hgb 10.8 L, Hct 34.4 L, MCV 94.7, MCH 29.7, MCHC 31.4 L, RDW 14.6, Plt Count 396, MPV 7.5, Neut % (Auto) 78.4, Lymph % (Auto) 14.9, [place] % (Auto) 4.9, Eos % (Auto) 1.3, Baso % (Auto) 0.6, Neut # (Auto) 7.4, Lymph # (Auto) 1.4, [place] # (Auto) 0.5, Eos # (Auto) 0.1, Baso # (Auto) 0.1 03/08/22 08:13: Sodium 140, Potassium 3.3 L, Chloride 90 L, Carbon Dioxide 41 H*, Anion Gap 12.3, BUN 23 H D, Creatinine 0.80, Estimated Creat Clear 56, Estimated GFR 70, Est GFR ( Amer) 85, Glucose 124 H, Calcium 8.7, Total Bilirubin 0.5, AST 33, ALT 26, Alkaline Phosphatase 127 H, Total Protein 7.4, Albumin 3.4 L, Globulin 4.0 H, Albumin/Globulin Ratio 0.9 L I & O for Labs for Last 24 Hours: Intake & Output 03/05/22 03/06/22 03/07/22 03/08/22 23:59 23:59 23:59 23:59 Intake Total 720 / 720 360 / 360 480 / 480 340 / 340 Output Total 1300 / 1700 1300 / 1300 900 / 900 0 / 0 Balance -580 / -980 -940 / -940 -420 / -420 340 / 340 Weight 73.284 kg 71.696 kg 71.305 kg 71.606 kg Microbiology Reports for the Last 24 Hours: Microbiology 03/02/22 14:25 Blood Blood Culture - Final NO GROWTH AFTER 5 DAYS 03/02/22 14:25 Blood Blood Culture - Final NO GROWTH AFTER 5 DAYS 03/05/22 15:27 Nose - Nasal MRSA Culture - Final Negative The patient's infection will respond to the chosen ABx?: Yes Is the patient receiving the right drug, dose, and route?: Yes Could a more targeted ABx be ordered?: No (BLD CX - X2, WBC WNL-DECREASED NOW.)
--- NOTE | 2022-03-08 15:22 | EXP.ACUTE.PN ---
Subjective *Date: 03/08/22 *Time: 15:22 Interval history: Appears more comfortable this morning. No fever or chest pain overnight. Had some intermittent emesis today after eating her meal quickly. Able to wean oxygen this morning off of Vapotherm to 6 L nasal cannula. Patient still ill-appearing but showing improvement. Denies worsening shortness of breath today. Had a bowel movement yesterday, Medical Exam Vital signs and Labs for Last 24 Hours: Vital Signs Temp Pulse Pulse Resp BP Pulse Ox FiO2 03/08/22 12:00 98.0 F 71 18 146/81 H 95 03/08/22 10:50 92 L 03/08/22 09:30 70 03/08/22 09:30 73 03/08/22 09:30 95 60 03/08/22 08:00 98.5 F 78 16 138/67 94 L 03/08/22 05:20 86 03/08/22 05:20 85 03/08/22 05:20 98 60 03/08/22 04:00 67 03/08/22 04:00 97.7 F 79 16 149/76 H 95 03/08/22 00:00 73 03/07/22 20:00 83 03/08/22 00:00 98.5 F 71 18 152/77 H 95 03/08/22 01:51 71 03/08/22 01:51 70 03/07/22 20:00 93 L 03/07/22 20:00 98.7 F 87 20 119/84 93 L 03/07/22 21:21 88 03/07/22 21:21 88 03/07/22 21:21 94 L 60 03/07/22 16:00 98.5 F 84 20 138/67 95 03/07/22 16:00 86 Intake and Output 03/07/22 03/08/22 03/08/22 23:59 07:59 15:59 Intake Total 240 / 480 100 / 340 240 / 340 Output Total 0 / 900 0 / 0 Balance 240 / -420 100 / 340 240 / 340 Intake: Intake, Oral Amount 240 / 480 240 / 240 Intake, Total IV Amount 100 / 100 Cefepime HCl 2 gm In 0.9 % 100 / 100 Sodium Chloride 100 ml @ 200 mls/hr IV Q12H [facility] Rx#:[id number] Output: Output, Urine Amount 0 / 900 0 / 0 Other: Number of Voids 0 Number of Unmeasured Voids 1 1 1 Weight 71.606 kg Patient Weight 03/08/22 23:59 Weight 71.606 kg Laboratory Results - last 24 hr 03/08/22 08:13: WBC 9.5 D, RBC 3.63 L, Hgb 10.8 L, Hct 34.4 L, MCV 94.7, MCH 29.7, MCHC 31.4 L, RDW 14.6, Plt Count 396, MPV 7.5, Neut % (Auto) 78.4, Lymph % (Auto) 14.9, [place] % (Auto) 4.9, Eos % (Auto) 1.3, Baso % (Auto) 0.6, Neut # (Auto) 7.4, Lymph # (Auto) 1.4, [place] # (Auto) 0.5, Eos # (Auto) 0.1, Baso # (Auto) 0.1 03/08/22 08:13: Sodium 140, Potassium 3.3 L, Chloride 90 L, Carbon Dioxide 41 H*, Anion Gap 12.3, BUN 23 H D, Creatinine 0.80, Estimated Creat Clear 56, Estimated GFR 70, Est GFR ( Amer) 85, Glucose 124 H, Calcium 8.7, Total Bilirubin 0.5, AST 33, ALT 26, Alkaline Phosphatase 127 H, Total Protein 7.4, Albumin 3.4 L, Globulin 4.0 H, Albumin/Globulin Ratio 0.9 L I & O for Labs for Last 24 Hours: Intake & Output 03/05/22 03/06/22 03/07/22 03/08/22 23:59 23:59 23:59 23:59 Intake Total 720 / 720 360 / 360 480 / 480 340 / 340 Output Total 1300 / 1700 1300 / 1300 900 / 900 0 / 0 Balance -580 / -980 -940 / -940 -420 / -420 340 / 340 Weight 73.284 kg 71.696 kg 71.305 kg 71.606 kg Microbiology Reports for the Last 24 Hours: Microbiology 03/02/22 14:25 Blood Blood Culture - Final NO GROWTH AFTER 5 DAYS 03/02/22 14:25 Blood Blood Culture - Final NO GROWTH AFTER 5 DAYS 03/05/22 15:27 Nose - Nasal MRSA Culture - Final Negative Constitutional: Present no acute distress, average body habitus and chronically ill appearing Head: Present atraumatic and normocephalic ENT: Present normal exam Neck: Present normal inspection Respiratory: Present accessory muscle use and crackles; Absent rhonchi or wheezes Cardiac: Present Reg Rate and Rhythm GI: Present soft and normal bowel sounds; Absent distention or tenderness Extremities: Present normal inspection, full ROM and edema (trace BLE) Skin: Present intact; Absent erythema Neuro: Present Grossly Intact, alert, awake, oriented x 3 and moves all extremities Assessment and Plan *Assessment and plan (1) Acute on chronic respiratory failur
[2022-03-09] VITALS (18 sets, daily range): BP systolic 112–146; BP diastolic 59–88; PULSE 72–93; RESP 14–20; TEMP 36.6–37.3; O2SAT 90–94; BMI 26.2
--- NOTE | 2022-03-09 02:49 | PC.NURSE ---
SINUS RHYTHM ON THE MONITOR. 02 AT 6 LNC. PULLS 02 CANNULA OFF FREQUENTLY IN HER SLEEP. OCCASSIONAL COUGH NOTED. Coarse expiratory wheezes noted more so on the right verses the left. no c/o pain or discomfort.
[2022-03-09 09:16] LABS: Basophils # 0.1 K/mm3 (0-0.2); Basophils % 0.7 % (0.1-2.0); Eosinophils # 0.1 K/mm3 (0.0-0.4); Eosinophils % 1.2 % (0.1-12.0); Hematocrit 33.5 % (37.0-47.0); Hemoglobin 10.3 g/dL (12.2-16.2); Lymphocytes # 1.1 K/mm3 (0.7-4.5); Lymphocytes % 15.2 % (10-50); Mean Corpuscular HGB Conc 30.8 g/dL (31.8-35.4); Mean Corpuscular Hemoglobin 29.6 pg (27.0-31.2); Mean Corpuscular Volume 95.9 fl (81-99); Mean Platelet Volume 7.6 fl (7.4-10.4); Monocytes # 0.4 K/mm3 (0.1-1.0); Monocytes % 5.8 % (1.7-9.3); Neutrophils # 5.8 K/mm3 (1.8-7.8); Neutrophils % 77.1 % (37.0-80.0); Platelet Count 344 K/mm3 (142-424); Red Cell Distribution Width 14.6 % (11.5-17.5); White Blood Count 7.5 K/mm3 (4.8-10.8)
[2022-03-09 09:24] LABS: Chloride 94 mmol/L (98-107); Potassium 3.4 mmoL/L (3.5-5.1); Sodium 142 mmol/L (136-145)
[2022-03-09 09:26] LABS: Blood Urea Nitrogen 20 mg/dl (7-17); Creatinine Clearance Estimated 56 mL/min (50-200); Estimated Glomerular Filt Rate 70 ml/min (>60); GFR (African American) 85 ML/MIN (>60)
[2022-03-09 09:27] LABS: Alanine Aminotransferase 28 U/L (12-78); Albumin Level 3.2 g/dl (3.5-5.0); Albumin/Globulin Ratio 0.8 (1.1-1.8); Alkaline Phosphatase 109 U/L (38-126); Aspartate Amino Transferase 37 U/L (14-36); Bilirubin,Total 0.3 mg/dl (0.2-1.3); Calcium 8.3 mg/dl (8.4-10.2); Globulin 3.8 g/dL (1.3-3.2); Glucose 131 mg/dl (74-100)
[2022-03-09 09:33] LABS: Anion Gap 11.4 mEq/L (5-15); Carbon Dioxide 40 mmol/L (22.0-30.0)
--- NOTE | 2022-03-09 17:06 | EXP.ACUTE.PN ---
Subjective *Date: 03/09/22 *Time: 19:22 Interval history: Still requiring 6 L nasal cannula oxygen. Does not have any vomiting when she eats slowly. Vomited yesterday after eating lunch fast. Afebrile. Wheezy on exam this morning, responds well to breathing treatments. Still states she feels bad. Continues to need placement. No chest pain, diarrhea, headache. Medical Exam Vital signs and Labs for Last 24 Hours: Vital Signs Temp Pulse Pulse Resp BP Pulse Ox 03/09/22 16:00 97.8 F 85 14 117/70 93 L 03/09/22 12:00 81 03/09/22 14:05 79 03/09/22 14:05 77 03/09/22 14:05 92 L 03/09/22 11:30 98.2 F 75 16 125/88 91 L 03/09/22 10:01 82 03/09/22 10:01 78 03/09/22 10:01 92 L 03/09/22 08:00 80 03/09/22 08:00 98.3 F 81 18 146/67 H 90 L 03/09/22 06:33 74 03/09/22 06:33 75 03/09/22 06:33 91 L 03/09/22 05:46 73 03/09/22 04:00 98.9 F 75 18 144/68 H 90 L 03/08/22 20:51 77 03/09/22 00:00 77 03/09/22 03:08 88 03/09/22 03:07 84 03/08/22 20:00 94 L 03/09/22 00:00 99.1 F 78 20 129/66 94 L 03/08/22 22:15 81 03/08/22 22:00 87 03/08/22 20:00 98.8 F 83 18 118/63 90 L 03/08/22 18:46 83 03/08/22 18:46 82 Intake and Output 03/09/22 03/09/22 03/09/22 07:59 15:59 23:59 Intake Total 220 / 1420 1200 / 1420 Output Total 0 / 0 Balance 220 / 1420 1200 / 1420 Intake: Intake, Oral Amount 120 / 1320 1200 / 1320 Intake, Total IV Amount 100 / 100 Cefepime HCl 2 gm In 0.9 % 100 / 100 Sodium Chloride 100 ml @ 200 mls/hr IV Q12H [facility] Rx#:[id number] Output: Output, Urine Amount 0 / 0 Other: Number of Unmeasured Voids 1 1 1 Weight 71.271 kg Patient Weight 03/09/22 23:59 Weight 71.271 kg Laboratory Results - last 24 hr 03/09/22 08:32: WBC 7.5, RBC 3.50 L, Hgb 10.3 L, Hct 33.5 L, MCV 95.9, MCH 29.6, MCHC 30.8 L, RDW 14.6, Plt Count 344, MPV 7.6, Neut % (Auto) 77.1, Lymph % (Auto) 15.2, [place] % (Auto) 5.8, Eos % (Auto) 1.2, Baso % (Auto) 0.7, Neut # (Auto) 5.8, Lymph # (Auto) 1.1, [place] # (Auto) 0.4, Eos # (Auto) 0.1, Baso # (Auto) 0.1 03/09/22 08:32: Sodium 142, Potassium 3.4 L, Chloride 94 L, Carbon Dioxide 40 H, Anion Gap 11.4, BUN 20 H, Creatinine 0.80, Estimated Creat Clear 56, Estimated GFR 70, Est GFR ( Amer) 85, Glucose 131 H, Calcium 8.3 L, Total Bilirubin 0.3, AST 37 H, ALT 28, Alkaline Phosphatase 109, Total Protein 7.0, Albumin 3.2 L, Globulin 3.8 H, Albumin/Globulin Ratio 0.8 L I & O for Labs for Last 24 Hours: Intake & Output 03/06/22 03/07/22 03/08/22 03/09/22 23:59 23:59 23:59 23:59 Intake Total 360 / 360 480 / 480 1300 / 1360 1420 / 1420 Output Total 1300 / 1300 900 / 900 0 / 0 0 / 0 Balance -940 / -940 -420 / -420 1300 / 1360 1420 / 1420 Weight 71.696 kg 71.305 kg 71.606 kg 71.271 kg Constitutional: Present no acute distress, average body habitus and chronically ill appearing Head: Present atraumatic and normocephalic ENT: Present normal exam Neck: Present normal inspection Respiratory: Present accessory muscle use and wheezes; Absent rhonchi or crackles Cardiac: Present Reg Rate and Rhythm GI: Present soft and normal bowel sounds; Absent distention or tenderness Extremities: Present normal inspection, full ROM and edema (trace BLE) Skin: Present intact; Absent erythema Neuro: Present Grossly Intact, alert, awake, oriented x 3 and moves all extremities Assessment and Plan *Assessment and plan (1) Acute on chronic respiratory failure with hypoxia and hypercapnia: Status: Acute Category: Medical Code(s): J96.21 - Acute and chronic respiratory failure with hypoxia; J96.22 - Acute and chronic respiratory failure with hypercapnia (2) HAP (hospital-acquired pneumonia): Status: Acute Category: Medical Code(s): J18.9 - Pneumonia, unspecified organism; Y95
[2022-03-10] VITALS (11 sets, daily range): BP systolic 104–134; BP diastolic 61–75; PULSE 70–87; RESP 16–20; TEMP 36.8–37.1; O2SAT 87–96; BMI 26.5
--- NOTE | 2022-03-10 05:24 | PC.NURSE ---
PATIENT CONTINUES WITH COARSE EXPIRATORY WHEEZES R>L. DRY COUGH NOTED. 02 SATS CONT TO DROP QUICKLY WHEN PATIENT GETS UO OOB OR WHEN SHE PULLS HER 02 CANNULA OFF. 02 REMAINS AT 6LNC. PATIENT DOES NOT C/O SOA OR DISCOMFORT.
--- NOTE | 2022-03-10 09:50 | XR_ITS ---
PROCEDURE INFORMATION: Exam: XR Chest Exam date and time: 03/10/2022 10:21 AM Age: 76 years old Clinical indication: Shortness of breath; Additional info: Pnm TECHNIQUE: Imaging protocol: Radiologic exam of the chest. Views: 1 view. COMPARISON: CR XR CHEST PORTABLE 03/06/2022 12:21 PM FINDINGS: Lungs: Persistent interstitial and airspace opacities in the mid right lung and lower lungs bilaterally, again most consistent with pneumonia. Pleural spaces: Unremarkable. No pleural effusion. No pneumothorax. Heart/Mediastinum: Unremarkable. No cardiomegaly. Bones/joints: Unremarkable. IMPRESSION: Similar appearance of multilobar pneumonia.
--- NOTE | 2022-03-10 09:50 | EXP.PULM.PN ---
Subjective *Date: 03/10/22 *Time: 14:00 Interval history: No acute respiratory events overnight. Patient admits continued improvement in her symptoms. Pulmonology Exam Inpatient Vital signs and Labs for Last 24 Hours: Temp Pulse Resp BP Pulse Ox FiO2 98.7 F 80 18 130/64 90 L 60 03/10/22 08:00 03/10/22 08:00 03/10/22 08:00 03/10/22 08:00 03/10/22 08:00 03/08/22 09:30 I & O for Labs for Last 24 Hours: Intake & Output 03/07/22 03/08/22 03/09/22 03/10/22 23:59 23:59 23:59 23:59 Intake Total 480 / 480 1300 / 1360 2140 / 2260 460 / 460 Output Total 900 / 900 0 / 0 0 / 0 0 / 0 Balance -420 / -420 1300 / 1360 2140 / 2260 460 / 460 Weight 157 lb 3.2 oz 157 lb 13.827 oz 157 lb 2 oz 159 lb 2 oz Microbiology Reports for the Last 24 Hours: Microbiology 03/02/22 14:25 Blood Blood Culture - Preliminary NO GROWTH AFTER 48 HOURS 03/02/22 14:25 Blood Blood Culture - Preliminary NO GROWTH AFTER 48 HOURS Constitutional: Present moderate distress Head: Present normocephalic and atraumatic ENT: Present normal exam, normal oropharynx and mucous membranes moist Neck: Present normal inspection and full ROM Respiratory: Present respiratory distress, diminished air movement and able to speak in complete sentences; Absent accessory muscle use, wheezes or crackles Cardiac: Present S1/S2, Tachycardia and radial pulses present GI: Present soft and distention; Absent tenderness or guarding Rectal (female): Present deferred (female): Present deferred Skin: Present intact; Absent cyanosis or jaundice Neuro: Present alert, awake and oriented x 3 Extremities: Present normal inspection; Absent clubbing or cyanosis Psychiatric: Present normal affect and cooperative Assessment and Plan *Assessment and plan (1) HAP (hospital-acquired pneumonia): Status: Acute Category: Medical Code(s): J18.9 - Pneumonia, unspecified organism; Y95 - Nosocomial condition (2) Acute respiratory failure with hypoxia: Status: Acute Category: Medical Code(s): J96.01 - Acute respiratory failure with hypoxia (3) Respiratory failure with hypoxia and hypercapnia: Status: Acute Category: Medical Code(s): J96.91 - Respiratory failure, unspecified with hypoxia; J96.92 - Respiratory failure, unspecified with hypercapnia Plan #Acute hypoxic and hypercarbic respiratory failure: #Hospital-acquired pneumonia: 76-year-old presented to the hospital on 03/02/2020 with worsening cough and shortness of breath. Chest x-ray on admission showed consolidation showing evidence of hypercarbic respiratory failure. She was initiated on treatment for CAP with ceftriaxone and azithromycin along with steroids and nebulization For COPD exacerbation. Chest x-ray from admission showed bilateral lower lobe airspace disease right greater than left. Chest x-ray from today improving right lower lobe, worsenign RUL airspace disease -antibiotics were escalated to vancomycin and Cefepime and today pulmonary was called for further evaluation Blood cultures pending. COVID-19 and flu PCR negative. ABG from admission continue to show hypoxic respiratory failure, compensated hypercarbic respiratory failure with a normal pH noted . Comprehensive respiratory viral panel, Negative. BC no growth so far. MRSa pCR negative Interval update: Improving oxygen requirements over the weekend. Weaned to nasal cannula. Improving Leucocytosis. Chest x-ray from this morning improving pleural effusions. Airspace disease relatively stable. Plan: -Prednisone 40 mg daily -Continue cefepime to complete a total of 7-day course (02/2822) -DuoNebs every 4 scheduled. and Budesonide Q12 scheduled -Continue nasal cannula oxygen supplementation to maintain O2 saturation goal of 90%. Wean as tolerated Thank you for involving pulmonary in this patient care. We will continue to follow.
--- NOTE | 2022-03-10 09:58 | PC.NURSE ---
RESP CARE NOTE: Pt found on 6 lpm nc, SPO2 at 87% on 6lpm nc. Dr Hernandez requests PRN john tx at this time.
--- NOTE | 2022-03-10 11:29 | HMH.PTEV ---
Physical Therapy Evaluation Rehab PT IP Evaluation Start: 03/03/22 09:38 Freq: ONCE Status: Active Protocol: Document 03/10/22 09:40 PHORALEXIS (Rec: 03/10/22 11:29 PHORNE [id number]) Subjective/History History History 76 yowf adm to [facility] with PNA and resp failure. She reports she lives alone and has assistance from a mounter automatic. She is generally independent with all mobility using AD at home, no steps to enter the home. Subjective Subjective Pt reports she feels very tired and unsetady this am. Rehab PT IP Eval Objective Appearance Patient Behavior Appropriate Patient Orientation Person,Place,Time Difficulty following instructions none Speech Pattern Clear Ambulation Patient Able to Ambulate Yes Ambulation Observation IP General Gait Pattern Observation Wide Based Gait,Shuffling Step Ambulation Distance (feet) 3 Ambulation Assistive Device None Ambulation Ability Moderate x 1 (50% assist) Balance Ability to Arise Able, uses arms to help Sitting Balance Steady, safe Standing Balance Steady, wide stance Dynamic Sitting Balance Ability Good Dynamic Standing Balance Ability Poor Transfers Bed Transfer Ability Moderate x 1 (50% assist) Chair Transfer Ability Moderate x 1 (50% assist) Sit to Stand Bed Transfer Ability Moderate x 1 (50% assist) Sit to Stand Chair Transfer Ability Moderate x 1 (50% assist) ROM RUE PT ROM Status ABN Abnormal ROM Comment unable to flex/abd shld more than 30 deg due to pain MMT RUE PT MMT ABN Abnormal MMT Grade R UE grossly 2/5 within available ROM Rehab PT IP prob,goals,plan Problems Date of Evaluation: 03/10/22 PT IP Problems Bed Mobility,Transfers,Gait Rehab Potential Rehab Potential Good Plan PT Intervention Plan Bed Mobility,Transfers,Gait, Therapeutic Exercise PT Plan Frequency Daily Duration LOS Discharge Goals Bed Transfer Ability Minimal x 1 (25% assist) Sit to Stand Chair Transfer Ability Minimal x 1 (25% assist) Ambulation Assistive Device Rolling Walker Ambulation Distance (feet) 10 Discharge Plan PT Discharge Plan Pt is currently most appropriate for rehab placement once medically
--- NOTE | 2022-03-10 15:03 | EXP.ACUTE.PN ---
Subjective *Date: 03/10/22 *Time: 15:03 Interval history: Patient states she feels little bit better today. Still on 6 L nasal cannula. Sats overnight 88-92. Denies nausea, worsening shortness of breath, chest pain, vomiting. In bedside chair on exam today. Encourage incentive spirometry. Remains afebrile and hemodynamically Medical Exam Vital signs and Labs for Last 24 Hours: Vital Signs Temp Pulse Pulse Resp BP Pulse Ox 03/10/22 12:00 98.3 F 77 16 126/75 95 03/10/22 13:10 83 03/10/22 13:10 81 03/10/22 13:10 93 L 03/10/22 08:00 78 03/10/22 09:55 82 03/10/22 09:55 87 03/10/22 09:55 87 L 03/10/22 08:00 98.7 F 80 18 130/64 90 L 03/10/22 06:00 73 03/10/22 06:00 71 03/10/22 06:00 93 L 03/10/22 04:00 79 03/10/22 04:00 98.4 F 70 16 110/61 96 03/10/22 00:00 87 03/09/22 21:00 93 H 03/10/22 00:00 98.5 F 82 16 104/63 L 93 L 03/09/22 20:00 93 L 03/09/22 22:35 89 03/09/22 22:34 72 03/09/22 20:00 98.4 F 89 18 112/59 L 93 L 03/09/22 18:15 85 03/09/22 18:05 79 03/09/22 16:00 90 03/09/22 16:00 97.8 F 85 14 117/70 93 L Intake and Output 03/09/22 03/10/22 03/10/22 23:59 07:59 15:59 Intake Total 720 / 2260 220 / 940 720 / 940 Output Total 0 / 0 0 / 0 Balance 720 / 2260 220 / 940 720 / 940 Intake: Intake, Oral Amount 720 / 2160 120 / 840 720 / 840 Intake, Total IV Amount 100 / 100 Cefepime HCl 2 gm In 0.9 % 100 / 100 Sodium Chloride 100 ml @ 200 mls/hr IV Q12H [facility] Rx#:[id number] Output: Output, Urine Amount 0 / 0 0 / 0 Other: Number of Unmeasured Voids 1 1 1 Number of Bowel Movements 1 Weight 72.178 kg Patient Weight 03/10/22 23:59 Weight 72.178 kg I & O for Labs for Last 24 Hours: Intake & Output 03/07/22 03/08/22 03/09/22 03/10/22 23:59 23:59 23:59 23:59 Intake Total 480 / 480 1300 / 1360 2140 / 2260 940 / 940 Output Total 900 / 900 0 / 0 0 / 0 0 / 0 Balance -420 / -420 1300 / 1360 2140 / 2260 940 / 940 Weight 71.305 kg 71.606 kg 71.271 kg 72.178 kg Constitutional: Present no acute distress, average body habitus and chronically ill appearing Head: Present atraumatic and normocephalic ENT: Present normal exam Neck: Present normal inspection Respiratory: Present accessory muscle use and wheezes; Absent rhonchi or crackles Cardiac: Present Reg Rate and Rhythm GI: Present soft and normal bowel sounds; Absent distention or tenderness Extremities: Present normal inspection, full ROM and edema (trace BLE) Skin: Present intact; Absent erythema Neuro: Present Grossly Intact, alert, awake, oriented x 3 and moves all extremities Assessment and Plan *Assessment and plan (1) Acute on chronic respiratory failure with hypoxia and hypercapnia: Status: Acute Category: Medical Code(s): J96.21 - Acute and chronic respiratory failure with hypoxia; J96.22 - Acute and chronic respiratory failure with hypercapnia (2) HAP (hospital-acquired pneumonia): Status: Acute Category: Medical Code(s): J18.9 - Pneumonia, unspecified organism; Y95 - Nosocomial condition (3) Diastolic heart failure: Status: Acute Category: Medical Code(s): I50.30 - Unspecified diastolic (congestive) heart failure (4) Depression: Status: Acute Category: Medical Code(s): F32.A - Depression, unspecified (5) HTN (hypertension): Status: Acute Category: Medical Code(s): I10 - Essential (primary) hypertension (6) COPD (chronic obstructive pulmonary disease): Status: Acute Category: Medical Code(s): J44.9 - Chronic obstructive pulmonary disease, unspecified (7) Nausea and vomiting: Status: Acute Category: Medical Code(s): R11.2 - Nausea with vomiting, unspecified Plan Patient is a 76-year-old woman wi
--- NOTE | 2022-03-10 17:22 | PC.NURSE ---
PT IS RESTING IN BED. TOLERATED SITTING UP IN THE CHAIR FOR A COUPLE OF HOURS THIS SHIFT. PT IS A 2 ASSIST TO TRANSFER. TOLERATES MECH SOFT DIET WELL. PT IS OKAY WITH DRINKING THE NECTAR THICK LIQUIDS HOWEVER HAS TO BE REMINDED TO TAKE SMALL SIPS. LUNG SOUNDS HAVE SCATTERED WHEEZES. ABDOMEN SOFT/NON TENDER WITH ACTIVE BOWEL SOUNDS. INCONTINENT OF BOWEL/BLADDER. O2 SATURATION 90-94% ON 6 L NC. WILL CONTINUE TO MONITOR.
[2022-03-11] VITALS (13 sets, daily range): BP systolic 115–136; BP diastolic 54–70; PULSE 67–90; RESP 18–22; TEMP 36.6–36.8; O2SAT 90–95; BMI 26.9
[2022-03-11 07:05] LABS: Basophils # 0.1 K/mm3 (0-0.2); Basophils % 0.6 % (0.1-2.0); Eosinophils # 0.2 K/mm3 (0.0-0.4); Eosinophils % 2.4 % (0.1-12.0); Hematocrit 29.4 % (37.0-47.0); Hemoglobin 9.3 g/dL (12.2-16.2); Lymphocytes # 1.6 K/mm3 (0.7-4.5); Lymphocytes % 21.2 % (10-50); Mean Corpuscular HGB Conc 31.6 g/dL (31.8-35.4); Mean Corpuscular Hemoglobin 29.8 pg (27.0-31.2); Mean Corpuscular Volume 94.3 fl (81-99); Mean Platelet Volume 8.4 fl (7.4-10.4); Monocytes # 0.4 K/mm3 (0.1-1.0); Monocytes % 5.7 % (1.7-9.3); Neutrophils # 5.2 K/mm3 (1.8-7.8); Platelet Count 381 K/mm3 (142-424); Red Blood Count 3.12 M/mm3 (4.20-5.40); Red Cell Distribution Width 15.1 % (11.5-17.5); White Blood Count 7.4 K/mm3 (4.8-10.8)
[2022-03-11 07:21] LABS: Anion Gap 7.7 mEq/L (5-15); Blood Urea Nitrogen 20 mg/dl (7-17); Calcium 8.6 mg/dl (8.4-10.2); Carbon Dioxide 38 mmol/L (22.0-30.0); Chloride 97 mmol/L (98-107); Creatinine Clearance Estimated 57 mL/min (50-200); Estimated Glomerular Filt Rate 61 ml/min (>60); GFR (African American) 74 ML/MIN (>60); Glucose 101 mg/dl (74-100); Magnesium 1.8 mg/dl (1.6-2.3); Potassium 3.7 mmoL/L (3.5-5.1); Sodium 139 mmol/L (136-145)
--- NOTE | 2022-03-11 07:40 | PC.NURSE ---
Pt. needs to be watched and reminded when eating to take small bites and sips.
--- NOTE | 2022-03-11 09:47 | EXP.PULM.PN ---
Subjective *Date: 03/11/22 *Time: 13:39 Interval history: No acute respiratory events overnight. Patient admits stable respiratory symptoms. Continues to have cough and productive phlegm. Pulmonology Exam Inpatient Vital signs and Labs for Last 24 Hours: Temp Pulse Resp BP Pulse Ox FiO2 98.0 F 86 19 115/58 L 90 L 60 03/11/22 08:00 03/11/22 08:00 03/11/22 08:00 03/11/22 08:00 03/11/22 08:00 03/08/22 09:30 Laboratory Results - last 24 hr 03/11/22 06:50: WBC 7.4, RBC 3.12 L, Hgb 9.3 L, Hct 29.4 L, MCV 94.3, MCH 29.8, MCHC 31.6 L, RDW 15.1, Plt Count 381, MPV 8.4, Neut % (Auto) 70.0, Lymph % (Auto) 21.2, [place] % (Auto) 5.7, Eos % (Auto) 2.4, Baso % (Auto) 0.6, Neut # (Auto) 5.2, Lymph # (Auto) 1.6, [place] # (Auto) 0.4, Eos # (Auto) 0.2, Baso # (Auto) 0.1 03/11/22 06:50: Sodium 139, Potassium 3.7, Chloride 97 L, Carbon Dioxide 38 H, Anion Gap 7.7, BUN 20 H, Creatinine 0.90, Estimated Creat Clear 57, Estimated GFR 61, Est GFR ( Amer) 74, Glucose 101 H, Calcium 8.6, Magnesium 1.8 I & O for Labs for Last 24 Hours: Intake & Output 03/08/22 03/09/22 03/10/22 03/11/22 23:59 23:59 23:59 23:59 Intake Total 1300 / 1360 2140 / 2260 2140 / 2140 460 / 460 Output Total 0 / 0 0 / 0 0 / 0 0 / 0 Balance 1300 / 1360 2140 / 2260 2140 / 2140 460 / 460 Weight 157 lb 13.827 oz 157 lb 2 oz 159 lb 2 oz 161 lb 6.054 oz Microbiology Reports for the Last 24 Hours: Microbiology 03/02/22 14:25 Blood Blood Culture - Preliminary NO GROWTH AFTER 48 HOURS 03/02/22 14:25 Blood Blood Culture - Preliminary NO GROWTH AFTER 48 HOURS Constitutional: Present moderate distress Head: Present normocephalic and atraumatic ENT: Present normal exam, normal oropharynx and mucous membranes moist Neck: Present normal inspection and full ROM Respiratory: Present respiratory distress, diminished air movement and able to speak in complete sentences; Absent accessory muscle use, wheezes or crackles Cardiac: Present S1/S2, Tachycardia and radial pulses present GI: Present soft and distention; Absent tenderness or guarding Rectal (female): Present deferred (female): Present deferred Skin: Present intact; Absent cyanosis or jaundice Neuro: Present alert, awake and oriented x 3 Extremities: Present normal inspection; Absent clubbing or cyanosis Psychiatric: Present normal affect and cooperative Assessment and Plan *Assessment and plan (1) HAP (hospital-acquired pneumonia): Status: Acute Category: Medical Code(s): J18.9 - Pneumonia, unspecified organism; Y95 - Nosocomial condition (2) Acute respiratory failure with hypoxia: Status: Acute Category: Medical Code(s): J96.01 - Acute respiratory failure with hypoxia (3) Respiratory failure with hypoxia and hypercapnia: Status: Acute Category: Medical Code(s): J96.91 - Respiratory failure, unspecified with hypoxia; J96.92 - Respiratory failure, unspecified with hypercapnia Plan #Acute hypoxic and hypercarbic respiratory failure: #Hospital-acquired pneumonia: 76-year-old presented to the hospital on 03/02/2020 with worsening cough and shortness of breath. Chest x-ray on admission showed consolidation showing evidence of hypercarbic respiratory failure. She was initiated on treatment for CAP with ceftriaxone and azithromycin along with steroids and nebulization For COPD exacerbation. Chest x-ray from admission showed bilateral lower lobe airspace disease right greater than left. Chest x-ray from today improving right lower lobe, worsenign RUL airspace disease -antibiotics were escalated to vancomycin and Cefepime and today pulmonary was called for further evaluation Blood cultures pending. COVID-19 and flu PCR negative. ABG from admission continue to show hypoxic respiratory failure, compensated hypercarbic respiratory failure with a normal pH noted . Comprehensive respiratory viral panel, Negat
--- NOTE | 2022-03-11 11:09 | FL_ITS ---
FINAL REPORT CLINICAL HISTORY: trouble swallowing coughing 1.15 fluoro time FINDINGS: MODIFIED BARIUM SWALLOW History: Dysphagia. FINDINGS: Fluoroscopy was provided for the speech pathologist to evaluate the swallowing mechanism. The patient was given several different consistencies of barium while the swallow was visualized fluoroscopically. The report of the speech pathologist should be consulted prior to making dietary decisions. FLUOROSCOPY TIME: 1 minute 15 seconds. 10 cine runs were obtained. IMPRESSION: Modified barium swallow under fluoroscopic guidance. Please see the report of the speech pathologist for more detail. Films reviewed , interpreted and dictated by Dr. Resendiz. Transcribed by Thad Dahl PA-C. Reviewed, Interpreted and Dictated by Annalee Resendiz MD Transcribed by MOE Brown Authenticated and [facility]
--- NOTE | 2022-03-11 14:10 | HMH.SLMBS2 ---
Speech & Language Evaluation Speech/Language Mod Barium Swallow Start: 03/11/22 11:09 Freq: ONCE Status: Complete Protocol: Document 03/11/22 13:59 SRINI (Rec: 03/11/22 14:10 [email or web address] [id number]) General Information General Current Food Consistency Mechanical Soft,[place] Liquids Dentition Edentulous Oxygen Status Nasal Cannula Facial Symmetry Symmetrical MBS Recommendations Diet Dietary Recommendations Mechanical Soft,Thin Liquids Treatment/Strategies Strategy/Precaution Recommend Sitting Upright (90 deg),Small Bites and Sips,Alternate Liquids/Solids Mod Barium Swallow Impressions Summary and Impressions Oral Phase Impression Mild Impairment Oral Phase Summary Mild oral dysfunction 2' lack of dentition. Pt presents with mildly prolonged mastication time as well as prolonged A/P transit. Mild oral residue noted with regular solid, but pt is able to clear with secondary swallow. Pharyngeal Phase Impression Mild Impairment Pharyngeal Phase Summary Mild pharyngeal dysfunction. No aspiration noted on the study. transient penetration noted during the swallow with thin liquids, however, all material clears from the laryngeal vestibule upon completion of the pharyngeal swallow. Mild diffuse pharyngeal residue noted with all consistencies, and pt is able to clear residue independently with subsequent swallow. BANK REPRESENTATIVE recommending upgrade to thin liquids. Speech/Language MBS Assessment/Goals/Plan Assessment Date of Evaluation: 03/11/22 Evaluation Type Initial Certification Assessment/Problems Currently on nectar thick liquids and no straws. Does Patient Qualify for Service No Qualify/Failure Comment Based on the results of the MBSS, no further skilled ST services are warranted at this time. Recommendations PHYSICIAN CERTIFICATION: The specified therapy services are required, authorized, and reviewed every 30 days. Diet Recommendations Mechanical Soft Liquid Type Recommendations Normal/Thin SL Swallow Guidelines
--- NOTE | 2022-03-11 15:39 | DIET.NUTRFU ---
Meal intake is showing improvement and her diet was also upgraded to MSOFT with thin liquids. CRTT completed MBSS today upon patients request. Plan is to discharge to rehab facility when ready
--- NOTE | 2022-03-11 17:42 | PC.NURSE ---
O2 INCREASED TO 6L VIA NC, WITH SATS AT 90%, RT NOTIFIED. ROMEO HEARD T/O ELVIS LUNGS. TAUGHT PT HOW TO USE IS, PT WAS USING IS INDEPENDENTLY TODAY. PER SPEECH, PT CAN NOW HAVE THIN LIQUIDS WITH STRAWS, CONT MECH SOFT DIET.
--- NOTE | 2022-03-11 17:54 | EXP.ACUTE.PN ---
Subjective *Date: 03/11/22 *Time: 17:54 Interval history: No concerns or complaints. All questions Medical Exam Vital signs and Labs for Last 24 Hours: Vital Signs Temp Pulse Pulse Resp BP Pulse Ox 03/11/22 16:00 78 03/11/22 12:00 80 03/11/22 08:00 86 03/11/22 15:21 98.0 F 78 19 115/65 91 L 03/11/22 11:16 98.1 F 80 19 116/60 91 L 03/11/22 09:50 83 03/11/22 09:50 84 03/11/22 08:00 98.0 F 86 19 115/58 L 90 L 03/11/22 06:14 86 03/11/22 06:14 83 03/11/22 06:14 92 L 03/11/22 04:00 98.0 F 70 18 131/70 93 L 03/11/22 04:00 70 03/11/22 03:16 67 03/11/22 00:00 97.9 F 72 20 136/59 L 95 03/11/22 00:00 70 03/10/22 20:00 94 L 03/10/22 22:24 85 03/10/22 22:24 85 03/10/22 20:00 80 03/10/22 20:00 98.3 F 84 20 128/71 03/10/22 18:38 79 03/10/22 18:38 84 03/10/22 18:38 92 L Intake and Output 03/11/22 03/11/22 03/11/22 07:59 15:59 23:59 Intake Total 100 / 940 840 / 940 Output Total 0 / 0 0 / 0 Balance 100 / 940 840 / 940 Intake: Intake, Oral Amount 0 / 840 840 / 840 Intake, Total IV Amount 100 / 100 Cefepime HCl 2 gm In 0.9 % 100 / 100 Sodium Chloride 100 ml @ 200 mls/hr IV Q12H [facility] Rx#:[id number] Output: Output, Urine Amount 0 / 0 0 / 0 Other: Number of Unmeasured Voids 1 2 Weight 73.2 kg Patient Weight 03/11/22 23:59 Weight 73.2 kg Laboratory Results - last 24 hr 03/11/22 06:50: WBC 7.4, RBC 3.12 L, Hgb 9.3 L, Hct 29.4 L, MCV 94.3, MCH 29.8, MCHC 31.6 L, RDW 15.1, Plt Count 381, MPV 8.4, Neut % (Auto) 70.0, Lymph % (Auto) 21.2, [place] % (Auto) 5.7, Eos % (Auto) 2.4, Baso % (Auto) 0.6, Neut # (Auto) 5.2, Lymph # (Auto) 1.6, [place] # (Auto) 0.4, Eos # (Auto) 0.2, Baso # (Auto) 0.1 03/11/22 06:50: Sodium 139, Potassium 3.7, Chloride 97 L, Carbon Dioxide 38 H, Anion Gap 7.7, BUN 20 H, Creatinine 0.90, Estimated Creat Clear 57, Estimated GFR 61, Est GFR ( Amer) 74, Glucose 101 H, Calcium 8.6, Magnesium 1.8 I & O for Labs for Last 24 Hours: Intake & Output 03/08/22 03/09/22 03/10/22 03/11/22 23:59 23:59 23:59 23:59 Intake Total 1300 / 1360 2140 / 2260 2140 / 2140 940 / 940 Output Total 0 / 0 0 / 0 0 / 0 0 / 0 Balance 1300 / 1360 2140 / 2260 2140 / 2140 940 / 940 Weight 71.606 kg 71.271 kg 72.178 kg 73.2 kg Head: Present atraumatic and normocephalic Neck: Present normal inspection and full ROM Respiratory: Present CTA bilaterally; Absent accessory muscle use Cardiac: Present Reg Rate and Rhythm GI: Present soft; Absent tenderness Rectal (female): Present deferred (female): Present deferred Extremities: Present normal inspection Skin: Present intact; Absent erythema Assessment and Plan *Assessment and plan (1) Acute on chronic respiratory failure with hypoxia and hypercapnia: Status: Acute Category: Medical Code(s): J96.21 - Acute and chronic respiratory failure with hypoxia; J96.22 - Acute and chronic respiratory failure with hypercapnia (2) HAP (hospital-acquired pneumonia): Status: Acute Category: Medical Code(s): J18.9 - Pneumonia, unspecified organism; Y95 - Nosocomial condition (3) Diastolic heart failure: Status: Acute Category: Medical Code(s): I50.30 - Unspecified diastolic (congestive) heart failure (4) Depression: Status: Acute Category: Medical Code(s): F32.A - Depression, unspecified (5) HTN (hypertension): Status: Acute Category: Medical Code(s): I10 - Essential (primary) hypertension (6) COPD (chronic obstructive pulmonary disease): Status: Acute Category: Medical Code(s): J44.9 - Chronic obstructive pulmonary disease, unspecified (7) Nausea and vomiting: Status: Acute Category: Medical Code(s): R11.2 - Nausea with vomiting, unspecified P
[2022-03-12] VITALS (13 sets, daily range): BP systolic 125–168; BP diastolic 58–92; PULSE 74–90; RESP 18–20; TEMP 36.7–37.2; O2SAT 91–98; BMI 26.7
--- NOTE | 2022-03-12 06:00 | XR_ITS ---
PROCEDURE INFORMATION: Exam: XR Chest Exam date and time: 03/12/2022 5:43 AM Age: 76 years old Clinical indication: Condition or disease; Lung condition and disease; Pneumonia; Additional info: Pnm TECHNIQUE: Imaging protocol: Radiologic exam of the chest. Views: 1 view. COMPARISON: CR (CHEST, CXR AP LANDSCAPE) 03/10/2022 10:21 AM FINDINGS: Lungs: Patchy interstitial and alveolar airspace disease throughout much of the right lung and to a lesser degree the left lung base. Rather dense airspace consolidation likely within the posterior segment of the right upper lobe. Mildly progressive. Pleural spaces: Unremarkable. No pleural effusion. No pneumothorax. Heart/Mediastinum: Unremarkable. No cardiomegaly. Bones/joints: Unremarkable. IMPRESSION: Patchy interstitial and alveolar airspace disease throughout much of the right lung and to a lesser degree the left lung base. Rather dense airspace consolidation likely within the posterior segment of the right upper lobe. Mildly progressive. Follow-up to ensure resolution.
--- NOTE | 2022-03-12 06:07 | PC.NURSE ---
Pt is A&O to person and place. Pt follows verbal commands, and opens eyes to voice. Pt has slept most of this shift, has had no complaints. Pt remains on 6L NC, Rhonchi noted. Pt has been incontinent of urine.
[2022-03-12 06:48] LABS: Basophils % 0.2 % (0.1-2.0); Eosinophils % 0.1 % (0.1-12.0); Hematocrit 28.1 % (37.0-47.0); Lymphocytes # 1.1 K/mm3 (0.7-4.5); Lymphocytes % 8.7 % (10-50); Mean Corpuscular HGB Conc 32.1 g/dL (31.8-35.4); Mean Corpuscular Hemoglobin 29.8 pg (27.0-31.2); Mean Corpuscular Volume 92.8 fl (81-99); Mean Platelet Volume 8.1 fl (7.4-10.4); Monocytes # 0.4 K/mm3 (0.1-1.0); Monocytes % 3.7 % (1.7-9.3); Neutrophils # 10.5 K/mm3 (1.8-7.8); Neutrophils % 87.3 % (37.0-80.0); Platelet Count 377 K/mm3 (142-424); Red Blood Count 3.03 M/mm3 (4.20-5.40); Red Cell Distribution Width 14.6 % (11.5-17.5); White Blood Count 12.1 K/mm3 (4.8-10.8)
[2022-03-12 06:50] LABS: MANUAL DIFFERENTIAL MANUAL DIFFERENTIAL (MANUAL DIFF)
[2022-03-12 06:57] LABS: Chloride 98 mmol/L (98-107); Potassium 4.3 mmoL/L (3.5-5.1); Sodium 138 mmol/L (136-145)
[2022-03-12 06:59] LABS: Blood Urea Nitrogen 29 mg/dl (7-17); Creatinine Clearance Estimated 57 mL/min (50-200); Estimated Glomerular Filt Rate 61 ml/min (>60); GFR (African American) 74 ML/MIN (>60)
[2022-03-12 07:00] LABS: Alanine Aminotransferase 28 U/L (12-78); Albumin Level 3.1 g/dl (3.5-5.0); Albumin/Globulin Ratio 0.8 (1.1-1.8); Alkaline Phosphatase 102 U/L (38-126); Anion Gap 8.3 mEq/L (5-15); Aspartate Amino Transferase 33 U/L (14-36); Bilirubin,Total 0.4 mg/dl (0.2-1.3); Carbon Dioxide 36 mmol/L (22.0-30.0); Globulin 4.1 g/dL (1.3-3.2); Glucose 140 mg/dl (74-100); Phosphorous 3.1 mg/dl (2.5-4.5); Total Protein,Serum 7.2 g/dl (6.3-8.2)
[2022-03-12 07:01] LABS: Calcium 8.7 mg/dl (8.4-10.2); Magnesium 1.9 mg/dl (1.6-2.3)
[2022-03-12 07:06] LABS: C-Reactive Protein 41.5 mg/L (0-4)
--- NOTE | 2022-03-12 09:16 | PC.NURSE ---
RESP CARE NOTE: Pt SPO2 at 88% on 6 lpm. Will continue to monitor patient.
[2022-03-12 09:31] LABS: Lymphocytes % 19 % (10-50); Neutrophils % 81 % (42-76); Total Cells Counted 100
[2022-03-12 09:32] LABS: Platelet Estimate Normal
[2022-03-12 09:34] LABS: Acanthocytes 1+
--- NOTE | 2022-03-12 09:48 | EXP.PULM.PN ---
Subjective *Date: 03/12/22 *Time: 12:03 Interval history: No acute respiratory events overnight. Patient denies any significant improvement in her symptoms. Pulmonology Exam Inpatient Vital signs and Labs for Last 24 Hours: Temp Pulse Resp BP Pulse Ox FiO2 98.7 F 78 20 151/63 H 91 L 60 03/12/22 08:00 03/12/22 08:00 03/12/22 08:00 03/12/22 08:00 03/12/22 08:00 03/08/22 09:30 Laboratory Results - last 24 hr 03/12/22 06:14: C-Reactive Protein 41.5 H 03/12/22 06:14: WBC 12.1 H D, RBC 3.03 L, Hgb 9.0 L, Hct 28.1 L, MCV 92.8, MCH 29.8, MCHC 32.1, RDW 14.6, Plt Count 377, MPV 8.1, Neut % (Auto) 87.3 H, Lymph % (Auto) 8.7 L, [place] % (Auto) 3.7, Eos % (Auto) 0.1, Baso % (Auto) 0.2, Neut # (Auto) 10.5 H, Lymph # (Auto) 1.1, [place] # (Auto) 0.4, Eos # (Auto) 0.0, Baso # (Auto) 0.0, Total Counted 100, Neutrophils % (Manual) 81 H, Lymphocytes % (Manual) 19, Platelet Estimate Normal, Acanthocytes (Spur) 1+ 03/12/22 06:14: Sodium 138, Potassium 4.3, Chloride 98, Carbon Dioxide 36 H, Anion Gap 8.3, BUN 29 H D, Creatinine 0.90, Estimated Creat Clear 57, Estimated GFR 61, Est GFR ( Amer) 74, Glucose 140 H D, Calcium 8.7, Phosphorus 3.1, Magnesium 1.9, Total Bilirubin 0.4, AST 33, ALT 28, Alkaline Phosphatase 102, Total Protein 7.2, Albumin 3.1 L, Globulin 4.1 H, Albumin/Globulin Ratio 0.8 L I & O for Labs for Last 24 Hours: Intake & Output 03/09/22 03/10/22 03/11/22 03/12/22 23:59 23:59 23:59 23:59 Intake Total 2140 / 2260 2140 / 2140 1300 / 1660 600 / 600 Output Total 0 / 0 0 / 0 0 / 0 0 / 0 Balance 2140 / 0 2140 / 0 1300 / 1660 600 / 600 Weight 157 lb 2 oz 159 lb 2 oz 161 lb 6.054 oz 160 lb 7.944 oz Microbiology Reports for the Last 24 Hours: Microbiology 03/02/22 14:25 Blood Blood Culture - Preliminary NO GROWTH AFTER 48 HOURS 03/02/22 14:25 Blood Blood Culture - Preliminary NO GROWTH AFTER 48 HOURS Constitutional: Present moderate distress Head: Present normocephalic and atraumatic ENT: Present normal exam and mucous membranes moist Neck: Present normal inspection and full ROM Respiratory: Present respiratory distress, rhonchi, crackles, diminished air movement and able to speak in complete sentences; Absent accessory muscle use or wheezes Cardiac: Present S1/S2, Tachycardia and radial pulses present GI: Present soft and distention; Absent tenderness or guarding Rectal (female): Present deferred (female): Present deferred Skin: Present intact; Absent cyanosis or jaundice Neuro: Present alert and awake; Absent oriented x 3 Extremities: Present normal inspection; Absent clubbing or cyanosis Psychiatric: Present normal affect and cooperative Assessment and Plan *Assessment and plan (1) HAP (hospital-acquired pneumonia): Status: Acute Category: Medical Code(s): J18.9 - Pneumonia, unspecified organism; Y95 - Nosocomial condition (2) Acute respiratory failure with hypoxia: Status: Acute Category: Medical Code(s): J96.01 - Acute respiratory failure with hypoxia (3) Respiratory failure with hypoxia and hypercapnia: Status: Acute Category: Medical Code(s): J96.91 - Respiratory failure, unspecified with hypoxia; J96.92 - Respiratory failure, unspecified with hypercapnia Plan #Acute hypoxic and hypercarbic respiratory failure: #Hospital-acquired pneumonia: 76-year-old presented to the hospital on 03/02/2020 with worsening cough and shortness of breath. Chest x-ray on admission showed consolidation showing evidence of hypercarbic respiratory failure. She was initiated on treatment for CAP with ceftriaxone and azithromycin along with steroids and nebulization For COPD exacerbation. Chest x-ray from admission showed bilateral lower lobe airspace disease right greater than left. Chest x-ray from today improving right lower lobe, worsenign RUL airspace disease -antibiotics were escalated to vancomycin a
--- NOTE | 2022-03-12 13:54 | EXP.ACUTE.PN ---
Subjective *Date: 03/12/22 *Time: 13:54 Interval history: No issues overnight. Patient remains confused and not able to provide much history Medical Exam Vital signs and Labs for Last 24 Hours: Vital Signs Temp Pulse Pulse Resp BP Pulse Ox 03/12/22 13:47 77 03/12/22 13:47 82 03/12/22 13:37 98 03/12/22 12:00 98.1 F 74 18 168/92 H 98 03/12/22 10:13 80 03/12/22 10:13 82 03/12/22 08:00 98.7 F 78 20 151/63 H 91 L 03/12/22 04:00 80 03/12/22 06:05 75 03/12/22 06:05 77 03/12/22 06:05 95 03/12/22 04:00 98.9 F 84 20 137/69 96 03/12/22 00:00 90 03/11/22 20:00 90 03/12/22 02:03 82 03/12/22 00:00 98.5 F 84 18 125/58 L 91 L 03/11/22 22:12 89 03/11/22 20:00 98.2 F 81 22 115/54 L 93 L 03/11/22 18:33 84 03/11/22 18:33 84 03/11/22 16:00 78 03/11/22 15:21 98.0 F 78 19 115/65 91 L Intake and Output 03/11/22 03/12/22 03/12/22 23:59 07:59 15:59 Intake Total 360 / 1660 360 / 600 240 / 600 Output Total 0 / 0 0 / 0 Balance 360 / 1660 360 / 600 240 / 600 Intake: Intake, Oral Amount 360 / 1560 360 / 600 240 / 600 Output: Output, Urine Amount 0 / 0 0 / 0 Other: Number of Unmeasured Voids 1 1 2 Number of Bowel Movements 1 Weight 72.8 kg Patient Weight 03/12/22 23:59 Weight 72.8 kg Laboratory Results - last 24 hr 03/12/22 06:14: C-Reactive Protein 41.5 H 03/12/22 06:14: WBC 12.1 H D, RBC 3.03 L, Hgb 9.0 L, Hct 28.1 L, MCV 92.8, MCH 29.8, MCHC 32.1, RDW 14.6, Plt Count 377, MPV 8.1, Neut % (Auto) 87.3 H, Lymph % (Auto) 8.7 L, [place] % (Auto) 3.7, Eos % (Auto) 0.1, Baso % (Auto) 0.2, Neut # (Auto) 10.5 H, Lymph # (Auto) 1.1, [place] # (Auto) 0.4, Eos # (Auto) 0.0, Baso # (Auto) 0.0, Total Counted 100, Neutrophils % (Manual) 81 H, Lymphocytes % (Manual) 19, Platelet Estimate Normal, Acanthocytes (Spur) 1+ 03/12/22 06:14: Sodium 138, Potassium 4.3, Chloride 98, Carbon Dioxide 36 H, Anion Gap 8.3, BUN 29 H D, Creatinine 0.90, Estimated Creat Clear 57, Estimated GFR 61, Est GFR ( Amer) 74, Glucose 140 H D, Calcium 8.7, Phosphorus 3.1, Magnesium 1.9, Total Bilirubin 0.4, AST 33, ALT 28, Alkaline Phosphatase 102, Total Protein 7.2, Albumin 3.1 L, Globulin 4.1 H, Albumin/Globulin Ratio 0.8 L I & O for Labs for Last 24 Hours: Intake & Output 03/09/22 03/10/22 03/11/22 03/12/22 23:59 23:59 23:59 23:59 Intake Total 2140 / 2260 2140 / 2140 1300 / 1660 600 / 600 Output Total 0 / 0 0 / 0 0 / 0 0 / 0 Balance 2140 / 2260 2140 / 2140 1300 / 1660 600 / 600 Weight 71.271 kg 72.178 kg 73.2 kg 72.8 kg Head: Present atraumatic and normocephalic Neck: Present normal inspection and full ROM Respiratory: Present CTA bilaterally; Absent accessory muscle use Cardiac: Present Reg Rate and Rhythm GI: Present soft; Absent tenderness Rectal (female): Present deferred (female): Present deferred Extremities: Present normal inspection Skin: Present intact; Absent erythema Comment:: Slow speech. Masked facies. Bilateral hand tremor Assessment and Plan *Assessment and plan (1) Acute on chronic respiratory failure with hypoxia and hypercapnia: Status: Acute Category: Medical Code(s): J96.21 - Acute and chronic respiratory failure with hypoxia; J96.22 - Acute and chronic respiratory failure with hypercapnia (2) HAP (hospital-acquired pneumonia): Status: Acute Category: Medical Code(s): J18.9 - Pneumonia, unspecified organism; Y95 - Nosocomial condition (3) Diastolic heart failure: Status: Acute Category: Medical Code(s): I50.30 - Unspecified diastolic (congestive) heart failure (4) Depression: Status: Acute Category: Medical Code(s): F32.A - Depression, unspecified (5) HTN (hypertension): Status: Acute Category: Medical Code(s): I10 - Essential (primary) hypertension (6) COPD
[2022-03-12 14:52] LABS: Lithium (Eskalith(R)) <0.1 mmol/L (0.5-1.2)
--- NOTE | 2022-03-12 17:06 | PC.NURSE ---
PT HAS BEEN BACK AND FOURTH FROM SIMPLE MASK TO 6L NC PER PT REQUEST. PT HAS BEEN CONFUSED, ALERT TO SELF. FLAT AFFECT. PT UP TO CHAIR FOR AROUND AN HR. BED ALARM ON FOR PT SAFETY PT HAS ATTEMPTED TO GET OUT OF BED MULTIPLE TIMES T/O SHIFT WITHOUT ASSISTANCE. TEACHING OVER USE OF CB. CB AND PERSONAL ITEMS WIHTIN REACH.
[2022-03-13] VITALS (11 sets, daily range): BP systolic 115–149; BP diastolic 57–81; PULSE 66–80; RESP 18–22; TEMP 36.6–37.2; O2SAT 90–96; BMI 25.7
--- NOTE | 2022-03-13 04:56 | PC.NURSE ---
Addendum entered by Evi Prajapati RN 03/13/22 06:40: telemetry reveals nsr Addendum entered by Evi Prajapati RN 03/13/22 04:58: pt remains of 02 at 6L pnc, lung sounds diminished, 02 sats 95% Original Note: no changes from previous assessment, pt has rested most of the night, pt is alert and oriented to self, place, , year w/periods of confusion at times, pt is incontinent of urine and bowel, vss, no acute distress
[2022-03-13 07:24] LABS: Chloride 99 mmol/L (98-107); Sodium 140 mmol/L (136-145)
[2022-03-13 07:25] LABS: Potassium 3.9 mmoL/L (3.5-5.1)
[2022-03-13 07:26] LABS: Basophils # 0.1 K/mm3 (0-0.2); Basophils % 0.6 % (0.1-2.0); Eosinophils # 0.1 K/mm3 (0.0-0.4); Eosinophils % 0.5 % (0.1-12.0); Hematocrit 29.9 % (37.0-47.0); Hemoglobin 9.1 g/dL (12.2-16.2); Lymphocytes # 1.9 K/mm3 (0.7-4.5); Lymphocytes % 19.2 % (10-50); Mean Corpuscular HGB Conc 30.6 g/dL (31.8-35.4); Mean Corpuscular Hemoglobin 29.2 pg (27.0-31.2); Mean Corpuscular Volume 95.6 fl (81-99); Mean Platelet Volume 8.3 fl (7.4-10.4); Monocytes # 0.5 K/mm3 (0.1-1.0); Neutrophils # 7.4 K/mm3 (1.8-7.8); Neutrophils % 74.7 % (37.0-80.0); Platelet Count 447 K/mm3 (142-424); Red Blood Count 3.12 M/mm3 (4.20-5.40); Red Cell Distribution Width 14.8 % (11.5-17.5); White Blood Count 9.9 K/mm3 (4.8-10.8)
[2022-03-13 07:27] LABS: Alanine Aminotransferase 42 U/L (12-78); Albumin Level 3.2 g/dl (3.5-5.0); Albumin/Globulin Ratio 0.8 (1.1-1.8); Alkaline Phosphatase 105 U/L (38-126); Anion Gap 7.9 mEq/L (5-15); Aspartate Amino Transferase 52 U/L (14-36); Bilirubin,Total 0.2 mg/dl (0.2-1.3); Blood Urea Nitrogen 40 mg/dl (7-17); Carbon Dioxide 37 mmol/L (22.0-30.0); Creatinine Clearance Estimated 55 mL/min (50-200); Estimated Glomerular Filt Rate 54 ml/min (>60); GFR (African American) 66 ML/MIN (>60); Total Protein,Serum 7.2 g/dl (6.3-8.2)
[2022-03-13 07:28] LABS: Calcium 8.8 mg/dl (8.4-10.2); Glucose 84 mg/dl (74-100)
[2022-03-13 07:48] LABS: Magnesium 2.1 mg/dl (1.6-2.3)
--- NOTE | 2022-03-13 09:46 | EXP.PULM.PN ---
Subjective *Date: 03/13/22 *Time: 13:00 Interval history: No acute respiratory events overnight. Pulmonology Exam Inpatient Vital signs and Labs for Last 24 Hours: Temp Pulse Resp BP Pulse Ox FiO2 98.5 F 79 18 149/81 H 94 L 60 03/13/22 08:00 03/13/22 08:00 03/13/22 08:00 03/13/22 08:00 03/13/22 08:00 03/08/22 09:30 Laboratory Results - last 24 hr 03/11/22 06:50: [place] <0.1 L 03/13/22 06:15: WBC 9.9, RBC 3.12 L, Hgb 9.1 L, Hct 29.9 L, MCV 95.6, MCH 29.2, MCHC 30.6 L, RDW 14.8, Plt Count 447 H, MPV 8.3, Neut % (Auto) 74.7, Lymph % (Auto) 19.2, [place] % (Auto) 5.0, Eos % (Auto) 0.5, Baso % (Auto) 0.6, Neut # (Auto) 7.4, Lymph # (Auto) 1.9, [place] # (Auto) 0.5, Eos # (Auto) 0.1, Baso # (Auto) 0.1 03/13/22 06:15: Sodium 140, Potassium 3.9, Chloride 99, Carbon Dioxide 37 H, Anion Gap 7.9, BUN 40 H D, Creatinine 1.00, Estimated Creat Clear 55, Estimated GFR 54 L, Est GFR ( Amer) 66, Glucose 84, Calcium 8.8, Phosphorus 4.0 D, Total Bilirubin 0.2, AST 52 H D, ALT 42 D, Alkaline Phosphatase 105, Total Protein 7.2, Albumin 3.2 L, Globulin 4.0 H, Albumin/Globulin Ratio 0.8 L 03/13/22 06:15: Magnesium 2.1 D I & O for Labs for Last 24 Hours: Intake & Output 03/10/22 03/11/22 03/12/22 03/13/22 23:59 23:59 23:59 23:59 Intake Total 2140 / 2140 1300 / 1660 1320 / 1440 360 / 360 Output Total 0 / 0 0 / 0 850 / 850 0 / 0 Balance 2140 / 2140 1300 / 1660 470 / 590 360 / 360 Weight 159 lb 2 oz 161 lb 6.054 oz 160 lb 7.944 oz 154 lb 8 oz Microbiology Reports for the Last 24 Hours: Microbiology 03/02/22 14:25 Blood Blood Culture - Preliminary NO GROWTH AFTER 48 HOURS 03/02/22 14:25 Blood Blood Culture - Preliminary NO GROWTH AFTER 48 HOURS Constitutional: Present moderate distress Head: Present normocephalic and atraumatic ENT: Present normal exam and mucous membranes moist Neck: Present normal inspection and full ROM Respiratory: Present respiratory distress, rhonchi, crackles, diminished air movement and able to speak in complete sentences; Absent accessory muscle use or wheezes Cardiac: Present S1/S2, Tachycardia and radial pulses present GI: Present soft and distention; Absent tenderness or guarding Rectal (female): Present deferred (female): Present deferred Skin: Present intact; Absent cyanosis or jaundice Neuro: Present alert and awake; Absent oriented x 3 Extremities: Present normal inspection; Absent clubbing or cyanosis Psychiatric: Present normal affect and cooperative Assessment and Plan *Assessment and plan (1) HAP (hospital-acquired pneumonia): Status: Acute Category: Medical Code(s): J18.9 - Pneumonia, unspecified organism; Y95 - Nosocomial condition (2) Acute respiratory failure with hypoxia: Status: Acute Category: Medical Code(s): J96.01 - Acute respiratory failure with hypoxia (3) Respiratory failure with hypoxia and hypercapnia: Status: Acute Category: Medical Code(s): J96.91 - Respiratory failure, unspecified with hypoxia; J96.92 - Respiratory failure, unspecified with hypercapnia Plan #Acute hypoxic and hypercarbic respiratory failure: #Hospital-acquired pneumonia: 76-year-old presented to the hospital on 03/02/2020 with worsening cough and shortness of breath. Chest x-ray on admission showed consolidation showing evidence of hypercarbic respiratory failure. She was initiated on treatment for CAP with ceftriaxone and azithromycin along with steroids and nebulization For COPD exacerbation. Chest x-ray from admission showed bilateral lower lobe airspace disease right greater than left. Chest x-ray from today improving right lower lobe, worsenign RUL airspace disease -antibiotics were escalated to vancomycin and Cefepime and today pulmonary was called for further evaluation Blood cultures pending. COVID-19 and flu PCR negative. ABG from admission continue to show hypoxic respira
--- NOTE | 2022-03-13 09:47 | XR_ITS ---
FINAL REPORT CLINICAL HISTORY: Shortness of breath, pneumonia COMPARISON: 03/10/2022, 03/05/2022 FINDINGS: A single view of the chest was obtained. The heart is normal in size. The mediastinum is unremarkable. Right upper lobe infiltrate has moderately improved. Diffuse interstitial markings are similar to the prior exam and favored to be chronic over interstitial edema. There is no pleural effusion. IMPRESSION: Improvement in right upper lobe pneumonia. Persistent interstitial changes may be chronic or interstitial edema. Reviewed, Interpreted and Dictated by Annalee Resendiz MD Transcribed by Yana Macario Authenticated and [facility]
--- NOTE | 2022-03-13 15:35 | EXP.CARD.CON ---
History of Present Illness History of Present Illness Consult date: 03/13/22 Requesting physician: Aureliano Li Chief complaint: Cough and shortness of breath Additional Medical History:: Significant past medical history Diastolic dysfunction Echo 03/13/2021 Conclusion 1.? Biatrial enlargement, normal left ventricular size, mild concentric left ventricular hypertrophy, visually estimated ejection fraction 55% with no obvious regional wall motion abnormality, grade 1 diastolic dysfunction seen without tissue Doppler evidence of raise left atrial pressure. 2.? Trace mitral and tricuspid regurgitation. 3.? No significant pericardial effusion noted. 4.? Inferior vena cava is normal size with normal inspiratory collapse.? Mild History of present illness: Patient is a 76-year-old woman with past medical history of hypertension depression, and diastolic heart failure who has been admitted since 03/02/2022 for CAP. Cardiology asked to consult today for Diastolic heart failure and to aid in diureses. Patient is resting comfortable, denies complaints. Labs reviewed [facility] Disclaimer: The information contained in this section may have been updated after the patient was seen, as this information can be updated by other users. Medical History (Updated 03/06/22 @ 20:11 by Kemar Hernandez MD) Acute respiratory failure with hypoxia Anxiety Arthritis of knee COVID-19 Diastolic dysfunction Dyspnea Effusion, left knee Elevated C-reactive protein (CRP) Elevated erythrocyte sedimentation rate Falls HAP (hospital-acquired pneumonia) HTN (hypertension) HTN (hypertension) Lacunar infarction Ovarian cancer Respiratory failure with hypoxia and hypercapnia Weakness Surgical History History of hysterectomy Family History Other No significant family history Social History (Updated 03/02/22 @ 17:27 by Mile Rodriges RN) Smoking Status: Current every day smoker tobacco type: cigarettes packs per day: 1 alcohol intake: never current occupational status: retired Travel in the last 8 weeks: None household members: other housing: assisted living facility Review of Systems Constitutional Constitutional: Denies headache(s) and Reports weakness Eyes Eyes: Denies loss of vision ENT Ears, Nose, Mouth, and Throat: Denies headache(s) *Musculoskeletal Musculoskeletal: Denies abnormal gait and Denies numbness *Neurologic Neurologic: Denies abnormal gait, Denies behavioral changes, Denies confusion, Denies localized weakness, Denies headache(s), Denies loss of vision, Denies numbness, Denies other visual disturbances, Denies seizure-like activity and Reports weakness Psychiatric Psychiatric: Denies behavioral changes and Denies confusion Exam Data for Last 24 hours Vital signs and Labs for Last 24 Hours: Temp Pulse Resp BP Pulse Ox FiO2 97.8 F 66 18 123/65 91 L 60 03/13/22 12:00 03/13/22 12:00 03/13/22 12:00 03/13/22 12:00 03/13/22 12:00 03/08/22 09:30 Laboratory Results - last 24 hr 03/13/22 06:15: WBC 9.9, RBC 3.12 L, Hgb 9.1 L, Hct 29.9 L, MCV 95.6, MCH 29.2, MCHC 30.6 L, RDW 14.8, Plt Count 447 H, MPV 8.3, Neut % (Auto) 74.7, Lymph % (Auto) 19.2, [place] % (Auto) 5.0, Eos % (Auto) 0.5, Baso % (Auto) 0.6, Neut # (Auto) 7.4, Lymph # (Auto) 1.9, [place] # (Auto) 0.5, Eos # (Auto) 0.1, Baso # (Auto) 0.1 03/13/22 06:15: Sodium 140, Potassium 3.9, Chloride 99, Carbon Dioxide 37 H, Anion Gap 7.9, BUN 40 H D, Creatinine 1.00, Estimated Creat Clear 55, Estimated GFR 54 L, Est GFR ( Amer) 66, Glucose 84, Calcium 8.8, Phosphorus 4.0 D, Total Bilirubin 0.2, AST 52 H D, ALT 42 D, Alkaline Phosphatase 105, Total Protein 7.2, Albumin 3.2 L, Globulin 4.0 H, Albumin/Globulin Ratio 0.8 L 03/13/22 06:15: Magnesium 2.1 D I & O for Last 24 hours: Intake & Output 03/10/22 03/11/22 03/12/22 03/13/22 23:
--- NOTE | 2022-03-13 16:36 | PC.NURSE ---
NO ACUTE CHANGES FROM PREVIOUS SHIFT, PT ALERT X3 TODAY. PT HAS TOLERATED 5L O2 WELL WITH SATS AT 89-95%. PT WILL DESAT SOME WHILE SLEEPING BUT IT JUMPS BACK UP SOON PT TAKES A COUPLE OF DEEP BREATHS. EXP RHONCHI AND WHEEZING IJN ELVIS LUNGS T.O GAVE SISTER JAVAD AN UPDATE ABOUT PT.
--- NOTE | 2022-03-13 18:46 | EXP.ACUTE.PN ---
Subjective *Date: 03/13/22 *Time: 18:46 Interval history: No events overnight. Remains not very communicative Medical Exam Vital signs and Labs for Last 24 Hours: Vital Signs Temp Pulse Pulse Resp BP Pulse Ox 03/13/22 16:00 98.9 F 69 18 115/59 L 93 L 03/13/22 16:00 70 03/13/22 12:00 70 03/13/22 12:00 97.8 F 66 18 123/65 91 L 03/13/22 11:21 69 03/13/22 11:21 71 03/13/22 11:21 92 L 03/13/22 08:00 80 03/13/22 08:00 98.5 F 79 18 149/81 H 94 L 03/13/22 04:00 70 03/13/22 06:20 70 03/13/22 06:20 69 03/13/22 06:20 94 L 03/13/22 00:00 70 03/13/22 04:00 98.1 F 74 19 140/81 96 03/12/22 20:00 92 L 03/13/22 00:00 98.0 F 80 18 126/68 95 03/12/22 20:00 98.3 F 78 18 127/65 92 L Intake and Output 03/13/22 03/13/22 03/13/22 07:59 15:59 23:59 Intake Total 120 / 1080 960 / 1080 Output Total 0 / 1200 1200 / 1200 Balance 120 / -120 -240 / -120 Intake: Intake, Oral Amount 120 / 1080 960 / 1080 Output: Output, Urine Amount 0 / 1200 1200 / 1200 Other: Number of Unmeasured Voids 0 Number of Bowel Movements 1 Weight 70.08 kg Patient Weight 03/13/22 23:59 Weight 70.08 kg Laboratory Results - last 24 hr 03/13/22 06:15: WBC 9.9, RBC 3.12 L, Hgb 9.1 L, Hct 29.9 L, MCV 95.6, MCH 29.2, MCHC 30.6 L, RDW 14.8, Plt Count 447 H, MPV 8.3, Neut % (Auto) 74.7, Lymph % (Auto) 19.2, [place] % (Auto) 5.0, Eos % (Auto) 0.5, Baso % (Auto) 0.6, Neut # (Auto) 7.4, Lymph # (Auto) 1.9, [place] # (Auto) 0.5, Eos # (Auto) 0.1, Baso # (Auto) 0.1 03/13/22 06:15: Sodium 140, Potassium 3.9, Chloride 99, Carbon Dioxide 37 H, Anion Gap 7.9, BUN 40 H D, Creatinine 1.00, Estimated Creat Clear 55, Estimated GFR 54 L, Est GFR ( Amer) 66, Glucose 84, Calcium 8.8, Phosphorus 4.0 D, Total Bilirubin 0.2, AST 52 H D, ALT 42 D, Alkaline Phosphatase 105, Total Protein 7.2, Albumin 3.2 L, Globulin 4.0 H, Albumin/Globulin Ratio 0.8 L 03/13/22 06:15: Magnesium 2.1 D I & O for Labs for Last 24 Hours: Intake & Output 03/10/22 03/11/22 03/12/22 03/13/22 23:59 23:59 23:59 23:59 Intake Total 2140 / 2140 1300 / 1660 1320 / 1440 1080 / 1080 Output Total 0 / 0 0 / 0 850 / 850 1200 / 1200 Balance 2140 / 2140 1300 / 1660 470 / 590 -120 / -120 Weight 72.178 kg 73.2 kg 72.8 kg 70.08 kg Head: Present atraumatic and normocephalic Neck: Present normal inspection and full ROM Respiratory: Present CTA bilaterally; Absent accessory muscle use Cardiac: Present Reg Rate and Rhythm GI: Present soft; Absent tenderness Rectal (female): Present deferred (female): Present deferred Extremities: Present normal inspection Skin: Present intact; Absent erythema Comment:: Slow speech. Masked facies. Bilateral hand tremor Assessment and Plan *Assessment and plan (1) Acute on chronic respiratory failure with hypoxia and hypercapnia: Status: Acute Category: Medical Code(s): J96.21 - Acute and chronic respiratory failure with hypoxia; J96.22 - Acute and chronic respiratory failure with hypercapnia (2) HAP (hospital-acquired pneumonia): Status: Acute Category: Medical Code(s): J18.9 - Pneumonia, unspecified organism; Y95 - Nosocomial condition (3) Diastolic heart failure: Status: Acute Category: Medical Code(s): I50.30 - Unspecified diastolic (congestive) heart failure (4) Depression: Status: Acute Category: Medical Code(s): F32.A - Depression, unspecified (5) HTN (hypertension): Status: Acute Category: Medical Code(s): I10 - Essential (primary) hypertension (6) COPD (chronic obstructive pulmonary disease): Status: Acute Category: Medical Code(s): J44.9 - Chronic obstructive pulmonary disease, unspecified (7) Nausea and vomiting: Status: Acute Category: Medical Code(s): R11.2 - Nausea with vo
[2022-03-14] VITALS: BP 112/57; PULSE 60; PULSE 68; RESP 16; TEMP 36.5; O2SAT 94
[2022-03-14 04:00] VITALS: BP 128/67; PULSE 60; PULSE 68; RESP 18; TEMP 36.8; O2SAT 93; BMI 26.0
[2022-03-14 06:15] VITALS: PULSE 67; PULSE 68; O2SAT 93
--- NOTE | 2022-03-14 06:18 | PC.NURSE ---
pt oriented to name, , year and confused to place, pt states hospital but not sure which hospital, vss, pt slept through the night, purewick in place for incontinence, urine clear yellow, telemetry reveals nsr, no acute distress
[2022-03-14 06:41] LABS: Basophils % 0.4 % (0.1-2.0); Eosinophils # 0.1 K/mm3 (0.0-0.4); Eosinophils % 0.8 % (0.1-12.0); Hematocrit 29.7 % (37.0-47.0); Hemoglobin 9.5 g/dL (12.2-16.2); Lymphocytes # 2.3 K/mm3 (0.7-4.5); Lymphocytes % 20.8 % (10-50); Mean Corpuscular Hemoglobin 30.4 pg (27.0-31.2); Mean Corpuscular Volume 94.9 fl (81-99); Mean Platelet Volume 7.6 fl (7.4-10.4); Monocytes # 0.6 K/mm3 (0.1-1.0); Monocytes % 5.5 % (1.7-9.3); Neutrophils % 72.5 % (37.0-80.0); Platelet Count 501 K/mm3 (142-424); Red Blood Count 3.12 M/mm3 (4.20-5.40); Red Cell Distribution Width 14.8 % (11.5-17.5); White Blood Count 11.1 K/mm3 (4.8-10.8)
[2022-03-14 06:51] LABS: Alanine Aminotransferase 54 U/L (12-78); Albumin Level 3.3 g/dl (3.5-5.0); Albumin/Globulin Ratio 0.8 (1.1-1.8); Alkaline Phosphatase 116 U/L (38-126); Aspartate Amino Transferase 47 U/L (14-36); Bilirubin,Total 0.2 mg/dl (0.2-1.3); Blood Urea Nitrogen 47 mg/dl (7-17); Calcium 8.8 mg/dl (8.4-10.2); Carbon Dioxide 35 mmol/L (22.0-30.0); Chloride 98 mmol/L (98-107); Creatinine Clearance Estimated 55 mL/min (50-200); Estimated Glomerular Filt Rate 54 ml/min (>60); GFR (African American) 66 ML/MIN (>60); Glucose 99 mg/dl (74-100); Phosphorous 3.5 mg/dl (2.5-4.5); Sodium 137 mmol/L (136-145); Total Protein,Serum 7.3 g/dl (6.3-8.2)
[2022-03-14 08:00] VITALS: BP 135/65; PULSE 69; PULSE 70; RESP 16; TEMP 36.6; O2SAT 94
--- NOTE | 2022-03-14 09:36 | EXP.PULM.PN ---
Subjective *Date: 03/14/22 *Time: 10:46 Interval history: No acute respiratory events overnight. Stable oxygen requirements. Patient denies any improvement in her respiratory status. Pulmonology Exam Inpatient Vital signs and Labs for Last 24 Hours: Temp Pulse Resp BP Pulse Ox FiO2 98.3 F 68 18 128/67 93 L 60 03/14/22 04:00 03/14/22 04:00 03/14/22 04:00 03/14/22 04:00 03/14/22 04:00 03/08/22 09:30 Laboratory Results - last 24 hr 03/14/22 06:30: WBC 11.1 H, RBC 3.12 L, Hgb 9.5 L, Hct 29.7 L, MCV 94.9, MCH 30.4, MCHC 32.0, RDW 14.8, Plt Count 501 H, MPV 7.6, Neut % (Auto) 72.5, Lymph % (Auto) 20.8, [place] % (Auto) 5.5, Eos % (Auto) 0.8, Baso % (Auto) 0.4, Neut # (Auto) 8.0 H, Lymph # (Auto) 2.3, [place] # (Auto) 0.6, Eos # (Auto) 0.1, Baso # (Auto) 0.0 03/14/22 06:30: Sodium 137, Potassium 4.0, Chloride 98, Carbon Dioxide 35 H, Anion Gap 8.0, BUN 47 H, Creatinine 1.00, Estimated Creat Clear 55, Estimated GFR 54 L, Est GFR ( Amer) 66, Glucose 99, Calcium 8.8, Phosphorus 3.5, Total Bilirubin 0.2, AST 47 H, ALT 54 D, Alkaline Phosphatase 116, Total Protein 7.3, Albumin 3.3 L, Globulin 4.0 H, Albumin/Globulin Ratio 0.8 L I & O for Labs for Last 24 Hours: Intake & Output 03/11/22 03/12/22 03/13/22 03/14/22 23:59 23:59 23:59 23:59 Intake Total 1300 / 1660 1320 / 1440 1320 / 1320 Output Total 0 / 0 850 / 850 1200 / 1200 0 / 0 Balance 1300 / 1660 470 / 590 120 / 120 0 / 0 Weight 161 lb 6.054 oz 160 lb 7.944 oz 154 lb 8 oz 156 lb 8 oz Microbiology Reports for the Last 24 Hours: Microbiology 03/02/22 14:25 Blood Blood Culture - Preliminary NO GROWTH AFTER 48 HOURS 03/02/22 14:25 Blood Blood Culture - Preliminary NO GROWTH AFTER 48 HOURS Constitutional: Present moderate distress Head: Present normocephalic and atraumatic ENT: Present normal exam and mucous membranes moist Neck: Present normal inspection and full ROM Respiratory: Present respiratory distress, rhonchi, crackles, diminished air movement and able to speak in complete sentences; Absent accessory muscle use or wheezes Cardiac: Present S1/S2, Tachycardia and radial pulses present GI: Present soft and distention; Absent tenderness or guarding Rectal (female): Present deferred (female): Present deferred Skin: Present intact; Absent cyanosis or jaundice Neuro: Present alert and awake; Absent oriented x 3 Extremities: Present normal inspection; Absent clubbing or cyanosis Psychiatric: Present normal affect and cooperative Assessment and Plan *Assessment and plan (1) HAP (hospital-acquired pneumonia): Status: Acute Category: Medical Code(s): J18.9 - Pneumonia, unspecified organism; Y95 - Nosocomial condition (2) Acute respiratory failure with hypoxia: Status: Acute Category: Medical Code(s): J96.01 - Acute respiratory failure with hypoxia (3) Respiratory failure with hypoxia and hypercapnia: Status: Acute Category: Medical Code(s): J96.91 - Respiratory failure, unspecified with hypoxia; J96.92 - Respiratory failure, unspecified with hypercapnia Plan #Acute hypoxic and hypercarbic respiratory failure: #Hospital-acquired pneumonia: 76-year-old presented to the hospital on 03/02/2020 with worsening cough and shortness of breath. Chest x-ray on admission showed consolidation showing evidence of hypercarbic respiratory failure. She was initiated on treatment for CAP with ceftriaxone and azithromycin along with steroids and nebulization For COPD exacerbation. Chest x-ray from admission showed bilateral lower lobe airspace disease right greater than left. Chest x-ray from today improving right lower lobe, worsenign RUL airspace disease -antibiotics were escalated to vancomycin and Cefepime and today pulmonary was called for further evaluation Blood cultures pending. COVID-19 and flu PCR negative. ABG from admission continue to show hypoxic
[2022-03-14 11:33] VITALS: PULSE 73; PULSE 75; O2SAT 94
[2022-03-14 12:00] VITALS: BP 144/76; PULSE 70; PULSE 72; RESP 20; TEMP 36.9; O2SAT 92
[2022-03-14 12:03] LABS: Coronavirus 19, PCR Not Detected (NotDetected); Influenza A, PCR Not Detected (NotDetected); Influenza B, PCR Not Detected (NotDetected)
--- NOTE | 2022-03-14 12:51 | P.PN_ITS ---
Subjective Subjective Date: 03/14/22 Time: 08:00 Principal diagnosis: soa, cap Interval history: Resting, denies complaints other than soa. labs reviewed. Exam Data for Last 24 hours Vital signs and Labs for Last 24 Hours: Temp Pulse Resp BP Pulse Ox FiO2 97.8 F 75 16 135/65 94 L 60 03/14/22 08:00 03/14/22 11:33 03/14/22 08:00 03/14/22 08:00 03/14/22 11:33 03/08/22 09:30 Laboratory Results - last 24 hr 03/14/22 06:30: WBC 11.1 H, RBC 3.12 L, Hgb 9.5 L, Hct 29.7 L, MCV 94.9, MCH 30.4, MCHC 32.0, RDW 14.8, Plt Count 501 H, MPV 7.6, Neut % (Auto) 72.5, Lymph % (Auto) 20.8, [place] % (Auto) 5.5, Eos % (Auto) 0.8, Baso % (Auto) 0.4, Neut # (Auto) 8.0 H, Lymph # (Auto) 2.3, [place] # (Auto) 0.6, Eos # (Auto) 0.1, Baso # (Auto) 0.0 03/14/22 06:30: Sodium 137, Potassium 4.0, Chloride 98, Carbon Dioxide 35 H, Anion Gap 8.0, BUN 47 H, Creatinine 1.00, Estimated Creat Clear 55, Estimated GFR 54 L, Est GFR ( Amer) 66, Glucose 99, Calcium 8.8, Phosphorus 3.5, Total Bilirubin 0.2, AST 47 H, ALT 54 D, Alkaline Phosphatase 116, Total Protein 7.3, Albumin 3.3 L, Globulin 4.0 H, Albumin/Globulin Ratio 0.8 L 03/14/22 11:50: SARS-CoV-2 (PCR) Not detected, Influenza A Untype (PCR) Not detected, Influenza Type B (PCR) Not detected I & O for Last 24 hours: Intake & Output 03/11/22 03/12/22 03/13/22 03/14/22 23:59 23:59 23:59 23:59 Intake Total 1300 / 1660 1320 / 1440 1320 / 1320 240 / 240 Output Total 0 / 0 850 / 850 1200 / 1200 0 / 0 Balance 1300 / 1660 470 / 590 120 / 120 240 / 240 Weight 161 lb 6.054 oz 160 lb 7.944 oz 154 lb 8 oz 156 lb 8 oz Constitutional Constitutional: no acute distress *Routine Respiratory Exam Respiratory: Present rhonchi, wheezes and symmetric chest movement *Routine Cardiovascular Exam Cardiovascular: Present RRR, Normal S1 and Normal S2 *Routine Abdominal Exam Abdominal: Present soft and normoactive bowel sounds; Absent tenderness *Routine Extremities Exam Extremities: Present full ROM and normal capillary refill; Absent edema *Routine Skin Exam Skin: Present intact, dry and warm Detailed Neck Exam: Thyroids Thyroid: Absent bruit Progress Note: A&P Assessment and plan (1) HAP (hospital-acquired pneumonia): Status: Acute (2) Acute respiratory failure with hypoxia: Status: Acute (3) Respiratory failure with hypoxia and hypercapnia: Status: Acute Assessment and Plan Assessment and Plan for All Diagnoses:: Diastolic dysfunction-grade 1 -Echo from 03/2021-estimated EF of 55% with no obvious regional wall motion abnormality, grade 1 diastolic dysfunction noted -Continue metoprolol 12.5 mg p.o. twice daily, Bumex 2 mg p.o. daily -Monitor output CAP -Primary service CV summary: Continue meds as above. Monitor kidney function and volume status.
--- NOTE | 2022-03-14 13:13 | EXP.DC.SUM ---
General Admission date:: 03/03/22 Discharge date: 03/14/22 HPI HPI HPI: Patient is a 76-year-old woman with past medical history of hypertension depression, and diastolic heart failure who came to the ER today for 2 weeks of cough and shortness of breath.? Review of systems is negative aside from her being thirsty.? She denies fever, chills, chest pain, nausea, vomiting, diarrhea, constipation, swelling. Patient is a resident of [place]. Hospital Course Hospital Course Hospital Course: Admitted for acute hypoxic respiratory failure believed to be secondary to diastolic heart failure versus COPD exacerbation. Also had mid right lower lung consolidation, with hypercapnia on ABG. Placed on azithromycin and Rocephin, CT PE showed no embolism but there was multilobar pneumonia. Patient received full course antibiotics. Was given 2 mg Bumex for 3 days had net negative diuresis and improvement of respiratory status. Patient currently on 4 L nasal cannula transferred to accepting facility. Patient will need further titration of her diuretics as she was hypervolemic on admission and oxygen was responding to diuresis. Follow-up BMP Follow-up primary care Follow-up cardiology Follow-up pulmonology Exam Data for Last 24 hours Vital signs and Labs for Last 24 Hours: Temp Pulse Resp BP Pulse Ox FiO2 97.8 F 75 16 135/65 94 L 60 03/14/22 08:00 03/14/22 11:33 03/14/22 08:00 03/14/22 08:00 03/14/22 11:33 03/08/22 09:30 Laboratory Results - last 24 hr 03/14/22 06:30: WBC 11.1 H, RBC 3.12 L, Hgb 9.5 L, Hct 29.7 L, MCV 94.9, MCH 30.4, MCHC 32.0, RDW 14.8, Plt Count 501 H, MPV 7.6, Neut % (Auto) 72.5, Lymph % (Auto) 20.8, [place] % (Auto) 5.5, Eos % (Auto) 0.8, Baso % (Auto) 0.4, Neut # (Auto) 8.0 H, Lymph # (Auto) 2.3, [place] # (Auto) 0.6, Eos # (Auto) 0.1, Baso # (Auto) 0.0 03/14/22 06:30: Sodium 137, Potassium 4.0, Chloride 98, Carbon Dioxide 35 H, Anion Gap 8.0, BUN 47 H, Creatinine 1.00, Estimated Creat Clear 55, Estimated GFR 54 L, Est GFR ( Amer) 66, Glucose 99, Calcium 8.8, Phosphorus 3.5, Total Bilirubin 0.2, AST 47 H, ALT 54 D, Alkaline Phosphatase 116, Total Protein 7.3, Albumin 3.3 L, Globulin 4.0 H, Albumin/Globulin Ratio 0.8 L 03/14/22 11:50: SARS-CoV-2 (PCR) Not detected, Influenza A Untype (PCR) Not detected, Influenza Type B (PCR) Not detected I & O for Last 24 hours: Intake & Output 03/11/22 03/12/22 03/13/22 03/14/22 23:59 23:59 23:59 23:59 Intake Total 1300 / 1660 1320 / 1440 1320 / 1320 240 / 240 Output Total 0 / 0 850 / 850 1200 / 1200 0 / 0 Balance 1300 / 1660 470 / 590 120 / 120 240 / 240 Weight 73.2 kg 72.8 kg 70.08 kg 70.987 kg Constitutional Constitutional: no acute distress and cooperative *Routine HEENT Exam Head: Present normocephalic and atraumatic ENT: Present mucous membranes moist *Routine Neck Exam Neck: Present supple and full ROM *Routine Respiratory Exam Respiratory: Present accessory muscle use; Absent CTA bilaterally *Routine Cardiovascular Exam Cardiovascular: Present RRR, Normal S1 and Normal S2; Absent murmur *Routine Abdominal Exam Abdominal: Present soft; Absent tenderness *Routine Extremities Exam Extremities: Absent cyanosis or edema *Routine Skin Exam Skin: Present intact and dry *Routine Neurological Exam Neurological: Present alert and oriented X3 Results Data Completed and Pending Labs on day of discharge: Labs from last 24 hours 03/14/22 03/14/22 03/14/22 11:50 06:30 06:30 WBC 11.1 H RBC 3.12 L Hgb 9.5 L Hct 29.7 L MCV 94.9 MCH 30.4 MCHC 32.0 RDW 14.8 Plt Count 501 H MPV 7.6 Neut % (Auto) 72.5 Lymph % (Auto) 20.8 [place] % (Auto) 5.5 Eos % (Auto) 0.8 Baso % (Auto) 0.4 Neut # (Auto) 8.0 H Lymph # (Auto) 2.3 [place] # (Auto) 0.6 Eos # (Auto) 0.1 Baso # (Auto) 0.0 Sodium 137 Potassium 4.0 Chloride 98 Carbon Dioxide 35 H Anion Gap 8.0 BUN 47 H Creatinine 1.00 Es
== END 2022-03-14 15:22 | DRG 193 ==
LOC: ER 16:42 → 2ND 16:49
PROVIDERS: Internal Medicine Adolescent Medicine; Internal Medicine Pulmonary Disease; Admitting Provider Emergency Medicine; Emergency Provider Emergency Medicine; PCP Emergency Medicine; Visit Provider Student in an Organized Health Care Education/Training Program
DX: I50.33 Acute on chronic diastolic (congestive) heart failure (principal); J18.9 Pneumonia, unspecified organism; J96.21 Acute and chronic respiratory failure with hypoxia; J96.22 Acute and chronic respiratory failure with hypercapnia; J44.0 Chronic obstructive pulmonary disease with (acute) lower respiratory infection; M17.10 Unilateral primary osteoarthritis, unspecified knee; Y95 Nosocomial condition; Z85.43 Personal history of malignant neoplasm of ovary; I11.0 Hypertensive heart disease with heart failure; F32.A Depression, unspecified; K21.9 Gastro-esophageal reflux disease without esophagitis; R11.2 Nausea with vomiting, unspecified; K59.00 Constipation, unspecified
CPT/HCPCS: 36415; 70371; 71045; 71275; 74018; 80048; 80053; 80178; 80202; 82803; 83605; 83735; 83880; 84100; 85007; 85025; 85651; 86140; 87040; 87081; 87581; 87632; 87798; 92526; 92610; 92611; 93005; 94640; 94667; 94668; 94760; 94761; 97110; 97116; 97162; 97165; 97530; 97535; 99285; C9803; G0378; J0456; J0696; Q9967; U0003; U0005

== ENCOUNTER 2022-10-13 17:13 | Emergency (ER) | payer MEDICARE, MEDICAID, SELFPAY ==
[2022-10-13 17:24] VITALS: BP 141/78; PULSE 92; RESP 16; TEMP 37.3; O2SAT 91; BMI 27.4
--- NOTE | 2022-10-13 17:24 | HMH.EDGENADL ---
Discharge Plan Disposition Patient Disposition: Xfer Short-Term Hosp Condition: Good Chief Complaint: Fall Prescriptions Prescriptions: No Action trazodone 50 mg Tablet 25 mg PO DAILY metoprolol tartrate 25 mg Tablet 12.5 mg PO BID sennosides 8.6 mg Tablet 8.6 mg PO DAILYP PRN (Reason: Constipation) loperamide 2 mg Capsule 2 mg PO Q4H PRN (Reason: Diarrhea) Rx Instructions: administer after each loose stool until symptoms controlled; do not exceed 8 mg per 24 hrs acetaminophen 500 mg Tablet 500 mg PO Q6HP PRN (Reason: Fever Or Pain) bumetanide 1 mg Tablet 2 mg PO DAILY Qty: 30 0RF prednisone 20 mg Tablet See Taper PO DAILY Qty: 42 0RF Taper: Prednisone-15 Day 40 mg Daily for 14 Days and 0 Hour 20 mg Daily for 14 Days and 0 Hour 10 mg Daily for 5 Days and 0 Hour Trelegy Ellipta 200-62.5-25 mcg Blister With Device 1 puff inhalation DAILY 30 Days Qty: 1 0RF fluoxetine 40 MG capsule 40 mg PO DAILY olanzapine 7.5 MG tablet 7.5 mg PO HS melatonin 5 MG tablet 5 mg PO HS Referrals Follow up/Referrals: Provider,Referral, MD [Primary Care Provider] - See instructions Clinical Impressions Clinical Impression: Acute subdural hematoma Discharge ED Provider: Denae Don General Adult HPI General Chief complaint: Fall Stated complaint: fall Time Seen by Provider: 10/13/22 17:17 History of Present Illness HPI narrative: Patient has a PMHx significant for dementia, COPD, diabetes, anxiety, depression, currently living in [place] [facility] who presents to the ED with complaints of fall. Patient reportedly was [place] the [place] [facility] and was running to go get some water she was thirsty when she tripped and fell onto her face. Patient sustained a small laceration over the nasal bridge and had a nosebleed, but was hemostatic by the time EMS arrived. No blood thinners, negative LOC. On arrival to the ED, patient was alert and oriented GCS 15. Related Data Home Medications Medication Instructions Recorded Confirmed fluoxetine 40 mg capsule 40 mg PO DAILY Depression 03/27/21 09/19/22 olanzapine 7.5 mg tablet 7.5 mg PO HS Anxiety 03/27/21 09/19/22 melatonin 5 mg tablet 5 mg PO HS Insomnia 03/28/21 09/19/22 metoprolol tartrate 25 mg tablet 12.5 mg PO BID Hypertension 03/02/22 09/19/22 trazodone 50 mg tablet 25 mg PO DAILY Insomnia 03/02/22 09/19/22 acetaminophen 500 mg tablet 500 mg PO Q6HP PRN Fever Or Pain 03/03/22 09/19/22 loperamide 2 mg capsule 2 mg PO Q4H PRN Diarrhea 03/03/22 09/19/22 sennosides 8.6 mg tablet 8.6 mg PO DAILYP PRN Constipation 03/03/22 09/19/22 Previous Rx's Medication Instructions Recorded bumetanide 1 mg tablet 2 mg PO DAILY #30 tabs 03/14/22 fluticasone fur. 200 mcg-umeclid 1 puff inhalation DAILY 30 days #1 03/14/22 62.5 mcg-vilant 25 mcg ea inhalat.powder (Trelegy Ellipta) prednisone 20 mg tablet See Taper PO DAILY #42 tabs 03/14/22 Allergies Allergy/AdvReac Type Severity Reaction Status Date / Time No Known Allergies Allergy Verified 09/19/22 13:00 [facility] Disclaimer: The information contained in this section may have been updated after the patient was seen, as this information can be updated by other users. Medical History Acute respiratory failure with hypoxia Anxiety Arthritis of knee COVID-19 Diastolic dysfunction Dyspnea Effusion, left knee Elevated C-reactive protein (CRP) Elevated erythrocyte sedimentation rate Falls HAP (hospital-acquired pneumonia) HTN (hypertension) HTN (hypertension) Lacunar infarction Ovarian cancer Respiratory failure with hypoxia and hypercapnia Weakness Surgical History History of hysterectomy Family History Other No significant family history Social History (Reviewed 09/06
--- NOTE | 2022-10-13 17:30 | CT_ITS ---
PROCEDURE INFORMATION: Exam: CT Cervical Spine Without Contrast Exam date and time: 10/13/2022 5:46 PM Age: 76 years old Clinical indication: Injury or trauma; Fall; Blunt trauma; Additional info: Fall to face TECHNIQUE: Imaging protocol: Computed tomography of the cervical spine without contrast. Radiation optimization: All CT scans at this facility use at least one of these dose optimization techniques: automated exposure control; mA and/or kV adjustment per patient size (includes targeted exams where dose is matched to clinical indication); or iterative reconstruction. REPORTING DATA: Count of CT and Cardiac NM exams in prior 12 months: This patient has received 2 known CTs and 0 known cardiac nuclear medicine studies in the 12 months prior to the current study. COMPARISON: CT CERVICAL SPINE WO CON 03/27/2021 8:27 PM FINDINGS: Bones/joints: Near anatomic alignment. No acute fracture. Multilevel degenerative changes are present. Lungs: Lung apices are normal. Soft tissues: Unremarkable. IMPRESSION: No acute osseous injury.
--- NOTE | 2022-10-13 17:30 | CT_ITS ---
PROCEDURE INFORMATION: Exam: CT Head Without Contrast Exam date and time: 10/13/2022 5:49 PM Age: 76 years old Clinical indication: Injury or trauma; Fall; Blunt trauma (contusions or hematomas); Additional info: Fall to face TECHNIQUE: Imaging protocol: Computed tomography of the head without contrast. Radiation optimization: All CT scans at this facility use at least one of these dose optimization techniques: automated exposure control; mA and/or kV adjustment per patient size (includes targeted exams where dose is matched to clinical indication); or iterative reconstruction. REPORTING DATA: Count of CT and Cardiac NM exams in prior 12 months: This patient has received 2 known CTs and 0 known cardiac nuclear medicine studies in the 12 months prior to the current study. COMPARISON: CT HEAD/BRAIN WO CON 03/27/2021 8:27 PM FINDINGS: Brain: No acute infarct. There is a 3 mm anterior/inferior anterior hemispheric falx subdural hematoma present. The blood products is appear to extend to minimally extends to the adjacent inferior right frontal convexity for example on series 3 image 37. No midline shift. Minimal subdural blood products are also seen in the right tentorial leaflet anteriorly for example on coronal image 45 measuring 3 mm. Stable involutional changes of the brain. No mass effect. Chronic lacunar type infarcts in the bilateral basal ganglia are unchanged. Cerebral ventricles: Stable ventricular size. No ventriculomegaly. Paranasal sinuses: No significant inflammation. No fluid levels. Mastoid air cells: Right mastoid tip effusion. Bones/joints: Bilateral mildly displaced nasal bone fractures. Soft tissues: Unremarkable. IMPRESSION: 1. Small anterior/inferior interhemispheric falx subdural hematoma extending to the adjacent right frontal convexity inferiorly measuring 3 mm maximum thickness. There is also a 3 mm right anterior tentorial leaflet subdural hematoma. No mass effect or midline shift. 2. Bilateral nasal bone fractures.
--- NOTE | 2022-10-13 17:30 | CT_ITS ---
PROCEDURE INFORMATION: Exam: CT Maxillofacial Without Contrast Exam date and time: 10/13/2022 5:52 PM Age: 76 years old Clinical indication: Injury or trauma; Fall; Blunt trauma (contusions or hematomas); Nose; Additional info: Fall to face TECHNIQUE: Imaging protocol: Computed tomography of the face without contrast. Radiation optimization: All CT scans at this facility use at least one of these dose optimization techniques: automated exposure control; mA and/or kV adjustment per patient size (includes targeted exams where dose is matched to clinical indication); or iterative reconstruction. REPORTING DATA: Count of CT and Cardiac NM exams in prior 12 months: This patient has received 2 known CTs and 0 known cardiac nuclear medicine studies in the 12 months prior to the current study. COMPARISON: CT HEAD/BRAIN WO CON 10/13/2022 5:49 PM FINDINGS: Orbital cavities: Orbits are normal. Globes are unremarkable. Bones/joints: Bilateral mildly displaced nasal bone fractures are present. Paranasal sinuses: Trace mucosal thickening right maxillary sinus without air-fluid level. Soft tissues: There is soft tissue swelling of the nose. IMPRESSION: Bilateral mildly displaced nasal bone fractures are seen with soft tissue swelling of the nose.
[2022-10-13 17:47] LABS: Basophils % 0.2 % (0.1-2.0); Eosinophils # 0.1 K/mm3 (0.0-0.4); Eosinophils % 0.7 % (0.1-12.0); Hematocrit 32.1 % (37.0-47.0); Hemoglobin 10.2 g/dL (12.2-16.2); Lymphocytes # 1.2 K/mm3 (0.7-4.5); Lymphocytes % 7.8 % (10-50); Mean Corpuscular HGB Conc 31.9 g/dL (31.8-35.4); Mean Corpuscular Hemoglobin 29.7 pg (27.0-31.2); Mean Corpuscular Volume 93.2 fl (81-99); Mean Platelet Volume 8.1 fl (7.4-10.4); Monocytes # 0.9 K/mm3 (0.1-1.0); Monocytes % 5.7 % (1.7-9.3); Neutrophils # 12.8 K/mm3 (1.8-7.8); Neutrophils % 85.7 % (37.0-80.0); Platelet Count 390 K/mm3 (142-424); Red Blood Count 3.45 M/mm3 (4.20-5.40); Red Cell Distribution Width 14.9 % (11.5-17.5); White Blood Count 14.9 K/mm3 (4.8-10.8)
[2022-10-13 17:48] LABS: MANUAL DIFFERENTIAL MANUAL DIFFERENTIAL (MANUAL DIFF)
[2022-10-13 17:55] LABS: Alanine Aminotransferase 25 U/L (12-78); Albumin Level 3.9 g/dl (3.5-5.0); Albumin/Globulin Ratio 0.8 (1.1-1.8); Alkaline Phosphatase 178 U/L (38-126); Anion Gap 11.9 mEq/L (5-15); Aspartate Amino Transferase 24 U/L (14-36); Bilirubin,Total 0.5 mg/dl (0.2-1.3); Blood Urea Nitrogen 28 mg/dl (7-17); Calcium 8.6 mg/dl (8.4-10.2); Carbon Dioxide 29 mmol/L (22.0-30.0); Chloride 101 mmol/L (98-107); Creatinine Clearance Estimated 42 mL/min (50-200); Estimated Glomerular Filt Rate 37 ml/min (>60); GFR (African American) 44 ML/MIN (>60); Globulin 4.8 g/dL (1.3-3.2); Glucose 155 mg/dl (74-100); Potassium 3.9 mmoL/L (3.5-5.1); Sodium 138 mmol/L (136-145); Total Protein,Serum 8.7 g/dl (6.3-8.2)
[2022-10-13 18:06] LABS: Lymphocytes % 12 % (10-50); Monocytes % 1 % (2-9); Neutrophils % 87 % (42-76); Platelet Estimate Normal; RBC Morphology Normal; Total Cells Counted 100
--- NOTE | 2022-10-13 18:13 | PC.NURSE ---
Dr Don speaking with ad
--- NOTE | 2022-10-13 18:37 | PC.NURSE ---
Dr Don speaking with Dr Camarillo [facility] for transfer
[2022-10-13 18:40] VITALS: BP 152/78; PULSE 82; O2SAT 88
--- NOTE | 2022-10-13 18:44 | PC.NURSE ---
disc obtained from radiology and they power-shared to [facility]
--- NOTE | 2022-10-13 18:58 | PC.NURSE ---
pt resting in bed [facility] here to transport to , call light at bs
[2022-10-13 18:59] VITALS: BP 141/78; PULSE 92; RESP 20; TEMP 37.3; O2SAT 93
== END 2022-10-13 19:08 | disposition short-term general hospital (02) ==
PROVIDERS: Emergency Provider Emergency Medicine
DX: S06.5X0A Traumatic subdural hemorrhage without loss of consciousness, initial encounter (principal); F03.90 Unspecified dementia, unspecified severity, without behavioral disturbance, psychotic disturbance, mood disturbance, and anxiety; J44.9 Chronic obstructive pulmonary disease, unspecified; E11.9 Type 2 diabetes mellitus without complications; F41.9 Anxiety disorder, unspecified; I10 Essential (primary) hypertension; Z87.891 Personal history of nicotine dependence; W01.0XXA Fall on same level from slipping, tripping and stumbling without subsequent striking against object, initial encounter; N17.9 Acute kidney failure, unspecified
CPT/HCPCS: 70450; 70486; 72125; 80053; 85007; 85025; 99285

== ENCOUNTER 2022-11-23 14:27 | Inpatient (IN) | payer MEDICARE, MEDICAID, SELFPAY ==
[2022-11-23] VITALS (11 sets, daily range): BP systolic 101–148; BP diastolic 54–75; PULSE 76–100; RESP 18–27; TEMP 35.7–39.4; O2SAT 91–97; BMI 30.4
--- NOTE | 2022-11-23 14:31 | HMH.EDGENADL ---
Discharge Plan Disposition Patient Disposition: Admitted Chief Complaint: Fever Prescriptions Prescriptions: No Action trazodone 50 mg Tablet 25 mg PO DAILY metoprolol tartrate 25 mg Tablet 12.5 mg PO BID sennosides 8.6 mg Tablet 8.6 mg PO DAILYP PRN (Reason: Constipation) loperamide 2 mg Capsule 2 mg PO Q4H PRN (Reason: Diarrhea) Rx Instructions: administer after each loose stool until symptoms controlled; do not exceed 8 mg per 24 hrs acetaminophen 500 mg Tablet 500 mg PO Q6HP PRN (Reason: Fever Or Pain) bumetanide 1 mg Tablet 2 mg PO DAILY Qty: 30 0RF prednisone 20 mg Tablet See Taper PO DAILY Qty: 42 0RF Taper: Prednisone-15 Day 40 mg Daily for 14 Days and 0 Hour 20 mg Daily for 14 Days and 0 Hour 10 mg Daily for 5 Days and 0 Hour Trelegy Ellipta 200-62.5-25 mcg Blister With Device 1 puff inhalation DAILY 30 Days Qty: 1 0RF fluoxetine 40 MG capsule 40 mg PO DAILY olanzapine 7.5 MG tablet 7.5 mg PO HS melatonin 5 MG tablet 5 mg PO HS Referrals Follow up/Referrals: Bill Devries MD [Primary Care Provider] - See instructions Clinical Impressions Clinical Impression: Severe sepsis, Acute respiratory failure with hypoxemia, Acute exacerbation of chronic obstructive pulmonary disease, HCAP (healthcare-associated pneumonia) Discharge ED Provider: David Moore Adult HPI <David Moore MD - Last Filed: 11/23/22 15:51> General Chief complaint: Fever Stated complaint: fever Time Seen by Provider: 11/23/22 14:30 History of Present Illness HPI narrative: Patient presents for evaluation of shortness of breath with associated fevers, in the setting of history of COPD, [facility] found to be febrile and dyspneic, additionally per report has history of 4 L home nasal cannula oxygen requirement. Describes associated nonproductive cough, wheezing, no previous therapies today. No known sick contacts, no leg pain or leg swelling or chest pain at this time. Patient has had similar symptoms in the past associated with COPD exacerbation. Denies any abdominal pain or urinary symptoms. Related Data Home Medications Medication Instructions Recorded Confirmed fluoxetine 40 mg capsule 40 mg PO DAILY Depression 03/27/21 09/19/22 olanzapine 7.5 mg tablet 7.5 mg PO HS Anxiety 03/27/21 09/19/22 melatonin 5 mg tablet 5 mg PO HS Insomnia 03/28/21 09/19/22 metoprolol tartrate 25 mg tablet 12.5 mg PO BID Hypertension 03/02/22 09/19/22 trazodone 50 mg tablet 25 mg PO DAILY Insomnia 03/02/22 09/19/22 acetaminophen 500 mg tablet 500 mg PO Q6HP PRN Fever Or Pain 03/03/22 09/19/22 loperamide 2 mg capsule 2 mg PO Q4H PRN Diarrhea 03/03/22 09/19/22 sennosides 8.6 mg tablet 8.6 mg PO DAILYP PRN Constipation 03/03/22 09/19/22 Previous Rx's Medication Instructions Recorded bumetanide 1 mg tablet 2 mg PO DAILY #30 tabs 03/14/22 fluticasone fur. 200 mcg-umeclid 1 puff inhalation DAILY 30 days #1 03/14/22 62.5 mcg-vilant 25 mcg ea inhalat.powder (Trelegy Ellipta) prednisone 20 mg tablet See Taper PO DAILY #42 tabs 03/14/22 Allergies Allergy/AdvReac Type Severity Reaction Status Date / Time No Known Allergies Allergy Verified 09/19/22 13:00 [facility] <David Moore MD - Last Filed: 11/23/22 15:51> [facility] Disclaimer: The information contained in this section may have been updated after the patient was seen, as this information can be updated by other users. Medical History (Updated 11/23/22 @ 15:58 by Omero Khan MD) Acute respiratory failure with hypoxia Agitated depression Anxiety Arthritis of knee COVID-19 Dementia Diastolic dysfunction Dyspnea Effusion, left knee Elevated C-reactive protein (CRP) Elevated erythrocyte sedimentation rate Falls HAP (hospital-acquired pneumonia) HTN (hypertension) HTN (hypertension) Lacunar infarction Ovarian cancer Respiratory failure with hypoxia and hypercapnia W
--- NOTE | 2022-11-23 14:44 | XR_ITS ---
PROCEDURE INFORMATION: Exam: XR Chest Exam date and time: 11/23/2022 2:51 PM Age: 77 years old Clinical indication: Cough; Additional info: SOA, HX copd TECHNIQUE: Imaging protocol: Radiologic exam of the chest. Views: 2 views. COMPARISON: CR XR CHEST PORTABLE 03/13/2022 10:23 AM FINDINGS: Lungs: There is redemonstration of chronic interstitial changes. Coalescent, airspace opacities in right lower lobe suspicious for developing pneumonia. Pleural spaces: Unremarkable. No pleural effusion. No pneumothorax. Heart/Mediastinum: Unremarkable. No cardiomegaly. Bones/joints: Unremarkable. IMPRESSION: There is redemonstration of chronic interstitial changes. Coalescent, airspace opacities in right lower lobe suspicious for developing pneumonia.
[2022-11-23 14:52] LABS: Coronavirus 19, PCR Not Detected (NotDetected); Influenza A, PCR Not Detected (NotDetected); Influenza B, PCR Not Detected (NotDetected)
--- NOTE | 2022-11-23 14:55 | ECG_ITS ---
APPROVED REPORT Exam: Resting ECG HR:99 bpm ECG Measurements Heart Rate 99 AXES DE 153 P 57 QRSd 99 QRS 55 QT 347 T 58 QTc 403 Conclusion SINUS RHYTHM NORMAL ECG UNCONFIRMED REPORT Electronically signed by : Rodríguez Caceres MD 11/24/2022 20:19:36
[2022-11-23 14:58] LABS: VBG Base Excess 12.4 mmol/L (-2.4-2.3); VBG HCO3 35.8 mmol/L (23-30); VBG Oxygen Saturation 99.4 % (50-70); VBG PCO2 48.5 mmol/L (35-51); VBG PH 7.49 mmol/L (7.31-7.41); VBG PO2 199.1 mmol/L (28-40); VBG Total CO2 37.3 mmol/L (23-27)
--- NOTE | 2022-11-23 14:58 | PC.NURSE ---
pt to ct
[2022-11-23 14:59] LABS: Chloride 91 mmol/L (98-107); Potassium 3.9 mmoL/L (3.5-5.1); Sodium 137 mmol/L (136-145)
[2022-11-23 15:01] LABS: Blood Urea Nitrogen 24 mg/dl (7-17); Creatinine Clearance Estimated 64 mL/min (50-200); Estimated Glomerular Filt Rate 54 ml/min (>60); GFR (African American) 65 ML/MIN (>60)
[2022-11-23 15:02] LABS: Alanine Aminotransferase 32 U/L (12-78); Albumin Level 3.5 g/dl (3.5-5.0); Albumin/Globulin Ratio 0.7 (1.1-1.8); Alkaline Phosphatase 221 U/L (38-126); Anion Gap 10.9 mEq/L (5-15); Aspartate Amino Transferase 34 U/L (14-36); Bilirubin,Total 0.4 mg/dl (0.2-1.3); Calcium 8.8 mg/dl (8.4-10.2); Carbon Dioxide 39 mmol/L (22.0-30.0); Globulin 4.7 g/dL (1.3-3.2); Glucose 171 mg/dl (74-100); Total Protein,Serum 8.2 g/dl (6.3-8.2)
[2022-11-23 15:03] LABS: Basophils % 0.2 % (0.1-2.0); Eosinophils % 0.2 % (0.1-12.0); Hematocrit 32.5 % (37.0-47.0); Hemoglobin 10.1 g/dL (12.2-16.2); Lymphocytes # 1.1 K/mm3 (0.7-4.5); Lymphocytes % 5.4 % (10-50); Mean Corpuscular Hemoglobin 29.2 pg (27.0-31.2); Mean Corpuscular Volume 94.2 fl (81-99); Mean Platelet Volume 8.2 fl (7.4-10.4); Monocytes # 1.2 K/mm3 (0.1-1.0); Monocytes % 5.6 % (1.7-9.3); Neutrophils # 18.2 K/mm3 (1.8-7.8); Neutrophils % 88.6 % (37.0-80.0); Platelet Count 429 K/mm3 (142-424); Red Blood Count 3.45 M/mm3 (4.20-5.40); Red Cell Distribution Width 15.4 % (11.5-17.5); White Blood Count 20.5 K/mm3 (4.8-10.8)
[2022-11-23 15:14] LABS: MANUAL DIFFERENTIAL MANUAL DIFFERENTIAL (MANUAL DIFF)
[2022-11-23 15:17] LABS: Troponin I < 0.01 ng/ml (0.00-0.034)
[2022-11-23 15:21] LABS: Lymphocytes % 7 % (10-50); Monocytes % 5 % (2-9); Neutrophils % 88 % (42-76); Platelet Estimate Slight Increase; RBC Morphology Normal; Total Cells Counted 100
--- NOTE | 2022-11-23 15:59 | PC.NURSE ---
spoke with [facility] for bed assignment
--- NOTE | 2022-11-23 16:02 | PC.NURSE ---
@ BS with patient; call kelly within reach. Nothing needed at this time
--- NOTE | 2022-11-23 16:04 | PC.NURSE ---
Pt admitted to hospitalist for ARF,PNA,COPD,Severe sepsis. Acute. 211
--- NOTE | 2022-11-23 16:25 | PC.NURSE ---
Report called to Claude MARTIN
--- NOTE | 2022-11-23 16:32 | CT_ITS ---
PROCEDURE INFORMATION: Exam: CT Chest Without Contrast; Diagnostic Exam date and time: 11/23/2022 4:50 PM Age: 77 years old Clinical indication: Dyspnea; Additional info: Rll pna, interstial edema, copd TECHNIQUE: Imaging protocol: Diagnostic computed tomography of the chest without contrast. Radiation optimization: All CT scans at this facility use at least one of these dose optimization techniques: automated exposure control; mA and/or kV adjustment per patient size (includes targeted exams where dose is matched to clinical indication); or iterative reconstruction. REPORTING DATA: Count of CT and Cardiac NM exams in prior 12 months: This patient has received 5 known CTs and 0 known cardiac nuclear medicine studies in the 12 months prior to the current study. COMPARISON: CT ANGIO CHEST PE PROTOCOL 03/03/2022 11:05 AM FINDINGS: Limitations: The absence of intravenous contrast limits the assessment of vascular structures, lesions and lymphadenopathy. Trachea: Main airways are patent. Lungs: There are bilateral patchy and consolidative airspace opacities in lower lobes and right upper lobe suspicious for multifocal pneumonia. Aspiration is in the differential. Pleural spaces: No pneumothorax. No pleural effusion. Heart: Unremarkable. No cardiomegaly. No pericardial effusion. Coronary arteries: There is severe atherosclerotic calcification of the coronary arteries. Lymph nodes: Borderline prominent, multi station lymph nodes likely reactive. Vasculature: Moderate calcific burden of the origin of left subclavian artery. Aorta is nonaneurysmal. The aorta demonstrates mild atherosclerotic calcification. Infrarenal aortic aneurysm is incompletely evaluated measuring 3.4 x 3.8 cm Bones/joints: No acute osseous abnormality. Soft tissues: Unremarkable. IMPRESSION: There are bilateral patchy and consolidative airspace opacities in lower lobes and right upper lobe suspicious for multifocal pneumonia. Aspiration is in the differential.
--- NOTE | 2022-11-23 16:41 | EXP.HP ---
History of Present Illness *Admission Date: 11/23/22 *Reason for visit:: Chief complaint: Shortness of air *History of present illness: This is a 77-year-old female that presents to [facility] emergency department from her [place] longterm with concerns of shortness of air, fever and tachycardia. Her past medical history significant for COPD on 3 L of oxygen, coronary disease, heart failure with preserved ejection fraction, diverticulosis, mood disorder, chronic anemia. She describes dysphagia but no odynophagia. She describes frequent coughing with food consumption but no associated emesis. She reports associated shortness of air not improving with home medications. She describes fever and chills so she was brought to the ED for evaluation. In the ED her presenting temperature was 102.9 with tachycardia, tachypnea and required 6 L of oxygen to maintain appropriate oxygen saturations. Her laboratory studies identified a leukocytosis with a normal lactic acid. Blood cultures were acquired and she was started on IV antibiotic therapy. Her chest x-ray was consistent with right lower lobe infiltrate. [facility] Medical History (Updated 11/23/22 @ 17:00 by Chino Clancy MD) Anxiety Arthritis of knee Chronic anemia COVID-19 Dementia Depression Diastolic dysfunction Falls HTN (hypertension) Lacunar infarction Ovarian cancer Respiratory failure with hypoxia and hypercapnia Surgical History History of hysterectomy Family History Other No significant family history Social History Smoking Status: Former smoker alcohol intake: never current occupational status: retired Travel in the last 8 weeks: None household members: other housing: assisted living facility Review of Systems Review of Systems Review of systems:: pertinent systems reviewed and negative unless documented below Constitutional Constitutional: Reports fever(s) *Cardiovascular Cardiovascular: Denies chest pain, Denies chest pain at rest, Reports dyspnea and Reports dyspnea on exertion *Respiratory Respiratory: Reports cough, Reports dyspnea and Reports dyspnea on exertion *Gastrointestinal Gastrointestinal: Denies loose stools, Denies nausea and Denies vomiting Meds Home Medications and Allergies Home Medications Medication Instructions Recorded Confirmed Type fluoxetine 40 mg capsule 40 mg PO DAILY Depression 03/27/21 09/19/22 History olanzapine 7.5 mg tablet 7.5 mg PO HS Anxiety 03/27/21 09/19/22 History melatonin 5 mg tablet 5 mg PO HS Insomnia 03/28/21 09/19/22 History metoprolol tartrate 25 mg tablet 12.5 mg PO BID Hypertension 03/02/22 09/19/22 History trazodone 50 mg tablet 25 mg PO DAILY Insomnia 03/02/22 09/19/22 History acetaminophen 500 mg tablet 500 mg PO Q6HP PRN Fever Or Pain 03/03/22 09/19/22 History loperamide 2 mg capsule 2 mg PO Q4H PRN Diarrhea 03/03/22 09/19/22 History sennosides 8.6 mg tablet 8.6 mg PO DAILYP PRN Constipation 03/03/22 09/19/22 History bumetanide 1 mg tablet 2 mg PO DAILY #30 tabs 03/14/22 09/19/22 Rx fluticasone fur. 200 mcg-umeclid 1 puff inhalation DAILY 30 days #1 03/14/22 09/19/22 Rx 62.5 mcg-vilant 25 mcg ea inhalat.powder (Trelegy Ellipta) prednisone 20 mg tablet See Taper PO DAILY #42 tabs 03/14/22 09/19/22 Rx New Prescriptions to Start Prescriptions: Allergies Allergy/AdvReac Type Severity Reaction Status Date / Time No Known Allergies Allergy Verified 09/19/22 13:00 Exam Data for Last 24 hours Vital signs and Labs for Last 24 Hours: Temp Pulse Resp BP Pulse Ox O2 Del Method O2 Flow Rate 101.3 F H 85 24 107/58 L 92 L Nasal Cannula 6 11/23/22 16:25 11/23/22 16:25 11/23/22 16:25 11/23/22 16:25 11/23/22 16:03 11/23/22 16:25 11/23/22 16:25 Laboratory Results - last 24 hr 09
--- NOTE | 2022-11-23 16:42 | PC.NURSE ---
Rounded on patient; changed patient into a new gown and sheets. Patient transported with 1st liter of LR and second bag senet with second floor staff.
--- NOTE | 2022-11-23 16:45 | PC.NURSE ---
arrived by stretcher to floor from ED
[2022-11-23 17:40] LABS: Troponin I < 0.01 ng/ml (0.00-0.034)
[2022-11-23 20:48] LABS: POC Glucose,Bedside 354 (70-110)
--- NOTE | 2022-11-23 20:57 | PC.NURSE ---
Addendum entered by Rufina Florence RN 11/23/22 21:00: fsbs was 354 Original Note: Upon assessment pt very diaphoretic, opens eyes to sternal rub. VS 104/56 HR68 93% 4LNC 96.3 rectal temp. Marci RACHEL came to bedside. States to hold trazadone and olanzapine for tonight. Pt now able to tell us name and birthday, and that she is in the hospital in [place].
[2022-11-23 21:15] LABS: Troponin I < 0.01 ng/ml (0.00-0.034)
[2022-11-23 21:41] LABS: Hemoglobin A1C 5.6 % (4.0-6.0)
[2022-11-24] VITALS (8 sets, daily range): BP systolic 119–144; BP diastolic 64–81; PULSE 50–95; RESP 16–24; TEMP 35.8–36.9; O2SAT 90–95; BMI 29.2
--- NOTE | 2022-11-24 05:29 | PC.NURSE ---
Pt states she feels better this morning. Pt is more alert. Pt oriented to person and time this morning. Pt finished sepsis bolus this shift and has NS infusing@ 100ml/hr since. Pt on 4.5L NC tolerating well. Pt has had no other issues or complaints. rectal temp 97 this morning.
[2022-11-24 06:51] LABS: Basophils % 0.1 % (0.1-2.0)
[2022-11-24 06:56] LABS: Eosinophils % 0.1 % (0.1-12.0); Hematocrit 31.7 % (37.0-47.0); Hemoglobin 9.7 g/dL (12.2-16.2); Lymphocytes # 1.1 K/mm3 (0.7-4.5); Lymphocytes % 5.4 % (10-50); Mean Corpuscular HGB Conc 30.4 g/dL (31.8-35.4); Mean Corpuscular Hemoglobin 28.7 pg (27.0-31.2); Mean Corpuscular Volume 94.4 fl (81-99); Mean Platelet Volume 8.2 fl (7.4-10.4); Monocytes # 0.6 K/mm3 (0.1-1.0); Monocytes % 2.6 % (1.7-9.3); Neutrophils # 19.7 K/mm3 (1.8-7.8); Platelet Count 407 K/mm3 (142-424); Red Blood Count 3.36 M/mm3 (4.20-5.40); Red Cell Distribution Width 15.4 % (11.5-17.5); White Blood Count 21.4 K/mm3 (4.8-10.8)
[2022-11-24 06:59] LABS: MANUAL DIFFERENTIAL MANUAL DIFFERENTIAL (MANUAL DIFF)
[2022-11-24 07:01] LABS: INR 1.01 (0.9-1.1); Prothrombin Time 10.9 seconds (10.1-12.5)
[2022-11-24 07:04] LABS: Blood Urea Nitrogen 30 mg/dl (7-17); Calcium 9.2 mg/dl (8.4-10.2); Carbon Dioxide 34 mmol/L (22.0-30.0); Chloride 99 mmol/L (98-107); Creatinine Clearance Estimated 51 mL/min (50-200); Estimated Glomerular Filt Rate 44 ml/min (>60); GFR (African American) 53 ML/MIN (>60); Glucose 138 mg/dl (74-100); Sodium 140 mmol/L (136-145)
[2022-11-24 07:29] LABS: Lymphocytes % 2 % (10-50); Monocytes % 4 % (2-9); Neutrophils % 88 % (42-76); Total Cells Counted 100
[2022-11-24 07:30] LABS: Platelet Estimate Normal; RBC Morphology Normal
[2022-11-24 07:31] LABS: Anisocytosis 1+
--- NOTE | 2022-11-24 07:32 | P.CONPHA_ITS ---
Pharmacy Intervention Comments: MEDICATION RECONCILIATION COMPLETED ON PATIENT USING MAR FROM LONG-TERM. -MILO PALACIO, NAHUND
--- NOTE | 2022-11-24 07:32 | HMH.PHAINT1 ---
Pharmacy Intervention Comments: MEDICATION RECONCILIATION COMPLETED ON PATIENT USING MAR FROM LONGTERM. -MILO PALACIO, NAHUND
[2022-11-24 07:53] LABS: Vitamin B12 339 pg/mL (239-931)
[2022-11-24 08:52] LABS: Iron 42 ug/dL (37-170)
[2022-11-24 09:01] LABS: Total Iron Binding Capacity 214 ug/dL (265-497)
[2022-11-24 11:14] LABS: Hemoglobin A1C 5.6 % (4.0-6.0)
--- NOTE | 2022-11-24 13:49 | HMH.SLDYSPHA ---
Speech & Language Evaluation Speech/Language Dysphagia Evaluation Start: 11/24/22 13:37 Freq: ONCE Status: Active Protocol: Document 11/24/22 13:38 NATALICRISTAL (Rec: 11/24/22 13:49 WILLIE [id number]) Dysphagia Assess/Goals/Plan Assessment Date of Evaluation: 11/24/22 Evaluation Type Initial Certification Assessment/Problems dysphagia & concerns of aspiration pneumonia per MD order. Does Patient Qualify for Service No Qualify/Failure Comment Based on clinical observations made throughout the bedside swallow evaluation, mastication and orophayngeal phase of the swallow appear to be WFL. No further skilled speech therapy services are warranted at this time. Recommendations PHYSICIAN CERTIFICATION: The specified therapy services are required, authorized, and reviewed every 30 days. Diet Recommendations Mechanical Soft Liquid Type Recommendations Normal/Thin SL Swallow Guidelines Standard Aspiration Prec. Dysphagia Swallow Precautions/Strategies Sitting Upright (90 deg),Small Bites and Sips,Alternate Liquids/Solids Place Food on Either side of Mouth Plan Pt/Guardian verbally ack understanding Yes of dx/prognosis/goals G -code Required No Education Instructions provided Discussed results of CSE, diet recommendations, and aspiration precautions with pt , nursing, and care management all of which expressed understanding. Pt/Caregiver able to recall information Able to recall/restate Reinforcement needed No Speech & Language HPI History Present Illness Description of Patient Problem Ms. Damon is 77-year-old female that presents to [facility] emergency department from her [place] [facility] with concerns of shortness of air, fever and tachycardia. Her past medical history significant for COPD on 3 L of oxygen, coronary disease, heart failure with preserved ejection fraction, diverticulosis, mood disorder, chronic anemia. She was
--- NOTE | 2022-11-24 16:32 | CA_ITS ---
APPROVED REPORT EXAM: Comprehensive 2D, Doppler, and color-flow Echocardiogram [facility] Cashier: Destiny Noel RVT Ht: 5 ft 5 in Wt: 182lbs BSA: 1.90 BP: 120/67 mmHg Indications: COPD,FEVER,HTN,HLD,SMOKER,HX COVID TDS-BEST EXAM POSSIBLE R/T OVERLAYING LUNG/BODY HABITUS 2D Dimensions IVSd 1.00 cm F: 0.6-1.0 LVEF (Visual) 63.20 % PWd 1.24 cm F: 0.6 - 1.0 LA Volume 57.30 mL LVDd 3.72 cm F: 3.9 - 5.3 LA Volume Index 30.16 mL/m2 (M/F) 16-34 LVDs 2.47 cm F: 2.2 - 3.5 LVOT 2.01 cm (M/F) 1.5-2.5 M-Mode Dimensions LA Diam 3.95 cm (1.9-4.0) Ao Diam 3.00 cm (2.0-3.7) TAPSE 2.06 (<1.7) LV Diastology E Decel Time 217.00 (160-240 msec) E/A Ratio 0.9 MED E' 5.50 (< 7 cm/sec) E'/MED E' Ratio 16.09 (>14) LAT E' 7.30 (<10 cm/sec) E/LAT E' Ratio 12.12 (>14) Aortic Valve LVOT Max 91.00 (70-110 cm/s) LVOT VTI 21.51 cm AoV Peak Henok. 161.00 (50-130 cm/s) AO Peak GR. 10.40 mmHg AO Mean GR. 5.20 (<5 mmHg) AO VTI 35.45 (18-25 cm) LINDA (VTI) 1.93 (2.5-4.5 cm2) Mitral Valve MV E Max Henok. 88.00 (40-130 cm/s) MV A Velocity 97.00 (40-130 cm/s) E/A Ratio 0.92 MV Decel. Time 217.00 (160-240 ms) MV PHT 63.00 ms Pulmonary Valve PV Peak Velocity 75.00 (50-150 cm/s) Tricuspid Valve TR P. Velocity 128.00 cm/s RAP Estimate 10.00 mmHg RVSP 16.50 mmHg Left Ventricle The left ventricle is normal size. The left ventricular systolic function is normal. The left ventricular ejection fraction is within the normal range. There is normal left ventricular wall thickness. There is normal LV segmental wall motion. Diastolic function is indeterminate. LVEF is 55%. Right Ventricle The right ventricle is normal size. The right ventricular systolic function is normal. Atria Left atrium is mildly dilated. The right atrium size is normal. The interatrial septum is not well visualized. Aortic Valve The aortic valve is mildly thickened. There is no aortic valvular stenosis. Trace aortic regurgitation. Mitral Valve The mitral valve leaflets are mildly thickened. No evidence of mitral valve stenosis. Trace mitral regurgitation. Tricuspid Valve The tricuspid valve leaflets are thin and pliable. Trace tricuspid regurgitation. RVSP is normal. Pulmonic Valve The pulmonary valve is normal in structure. Trace pulmonic regurgitation. Great Vessels The aortic root is normal in size. The ascending aorta is not well visualized. IVC is dilated, but collapses >50% with inspiration. Pericardium There is no pericardial effusion. Other Information Study Quality: Technically Difficult Conclusion This is a technically difficult study due to poor accoustic windows. Normal biventricular systolic function. Mild LA enlargement. No significant valvular stenosis or regurgitation. No obvious evidence of masses or thrombi on this TTE. However, note that TTE cannot entirely rule out endocarditis. If there is clinical concern for endocarditis, a AMY is recommended. Electronically signed by : Rose Young, 11/26/2022 14:36:36
--- NOTE | 2022-11-24 18:38 | PC.NURSE ---
Pt is A/O x3 with no known allergies, Pt WBC remains elevated, O2 demands have remained at 4.5L throughout this shift, MRSA swab and sputum culture were obtained this shift. Pt has remained in bed, Pt denies needs at this time.
--- NOTE | 2022-11-24 19:37 | EXP.ACUTE.PN ---
Subjective *Date: 11/24/22 *Time: 19:37 Interval history: Patient on 4.5 L this morning. States she is feeling a little bit better. Denies any chest pain or shortness of breath. Blood cultures remain negative. Denies nausea, vomiting, diarrhea. Afebrile over the past 24 hours Medical Exam Vital signs and Labs for Last 24 Hours: Vital Signs Temp Pulse Pulse Resp BP Pulse Ox O2 Del Method 11/24/22 18:37 Nasal Cannula 11/24/22 18:07 70 11/24/22 18:07 72 11/24/22 18:07 91 L Nasal Cannula 11/24/22 16:00 80 11/24/22 16:00 97.5 F L 73 24 132/67 90 L Nasal Cannula 11/24/22 16:36 Nasal Cannula 11/24/22 14:48 70 11/24/22 14:43 Nasal Cannula 11/24/22 12:00 98.4 F 70 22 144/81 H 91 L Nasal Cannula 11/24/22 12:41 Nasal Cannula 11/24/22 10:36 Nasal Cannula 11/24/22 09:00 Nasal Cannula 11/24/22 08:00 90 L Nasal Cannula 11/24/22 08:00 70 11/24/22 08:00 97.8 F 77 22 119/64 90 L Nasal Cannula 11/24/22 06:46 Nasal Cannula 11/24/22 05:00 Nasal Cannula 11/24/22 04:00 70 11/24/22 04:00 97.0 F L 64 16 122/65 93 L Nasal Cannula 11/24/22 03:00 Nasal Cannula 11/24/22 01:00 Nasal Cannula 11/23/22 20:00 98.7 F 76 18 101/54 L 91 L Nasal Cannula 11/24/22 00:00 96.4 F L 50 L 22 124/75 95 Nasal Cannula 11/23/22 23:00 Nasal Cannula 11/23/22 20:00 Nasal Cannula 11/23/22 21:00 Nasal Cannula 11/23/22 21:00 96.3 F L O2 Flow Rate 11/24/22 18:37 4.5 11/24/22 18:07 11/24/22 18:07 11/24/22 18:07 11/24/22 16:00 11/24/22 16:00 11/24/22 16:36 4.5 11/24/22 14:48 11/24/22 14:43 4.5 11/24/22 12:00 11/24/22 12:41 4.5 11/24/22 10:36 4.5 11/24/22 09:00 4.5 11/24/22 08:00 4.5 11/24/22 08:00 11/24/22 08:00 11/24/22 06:46 4.5 11/24/22 05:00 4.5 11/24/22 04:00 11/24/22 04:00 4 11/24/22 03:00 4.5 11/24/22 01:00 4.5 11/23/22 20:00 4 11/24/22 00:00 4 11/23/22 23:00 4.5 11/23/22 20:00 4.5 11/23/22 21:00 4 11/23/22 21:00 Intake and Output 11/24/22 11/24/22 11/24/22 07:59 15:59 23:59 Intake Total 2314 / 3094 420 / 3094 360 / 3094 Output Total 700 / 1550 850 / 1550 0 / 1550 Balance 1614 / 1544 -430 / 1544 360 / 1544 Intake: Intake, Oral Amount 420 / 780 360 / 780 Intake, Total IV Amount 2314 / 2314 0.9 % Sodium Chloride 1000ML 1, 2314 / 2314 000 ml @ 100 mls/hr IV .Q10H [facility] Rx#:[id number] Output: Output, Urine Amount 700 / 1550 850 / 1550 0 / 1550 Other: Number of Voids 0 0 Number of Unmeasured Voids 0 Number of Bowel Movements 1 Weight 79.605 kg Patient Weight 11/24/22 23:59 Weight 79.605 kg Laboratory Results - last 24 hr 11/23/22 14:30: Hemoglobin A1c 5.6 11/23/22 20:10: Troponin I < 0.01 11/23/22 20:41: POC Glucose 354 H* 11/24/22 06:10: WBC 21.4 H*, RBC 3.36 L, Hgb 9.7 L, Hct 31.7 L, MCV 94.4, MCH 28.7, MCHC 30.4 L, RDW 15.4, Plt Count 407, MPV 8.2, Neut % (Auto) 92.0 H, Lymph % (Auto) 5.4 L, Woods % (Auto) 2.6, Eos % (Auto) 0.1, Baso % (Auto) 0.1, Neut # (Auto) 19.7 H, Lymph # (Auto) 1.1, Woods # (Auto) 0.6, Eos # (Auto) 0.0, Baso # (Auto) 0.0, Total Counted 100, Neutrophils % (Manual) 88 H, Band Neutrophils % 6.0, Lymphocytes % (Manual) 2 L, Monocytes % (Manual) 4, Platelet Estimate Normal, RBC Morphology Normal, Anisocytosis 1+, PT 10.9, INR 1.01, Sodium 140, Potassium 4.0, Chloride 99, Carbon Dioxide 34 H, Anion Gap 11.0, BUN 30 H, Creatinine 1.20 H, Estimated Creat Clear 51, Estimated GFR 44 L, Est GFR ( Amer) 53 L, Glucose 138 H, Hemoglobin A1c 5.6, Calcium 9.2, Iron 42, TIBC 214 L, Iron Saturation 19.38537, Vitamin B12 339 I & O for Labs for Last 24 Hours: Intake & Output 11/21/22 11/22/22 11/23/22 11/24/22 23:59 23:59 23:59 23:59 Intake Total 120 / 120 3094 / 3094 Output Total 1550 / 1550 Balance 120 / 120 1544
[2022-11-25] VITALS (18 sets, daily range): BP systolic 123–155; BP diastolic 63–75; PULSE 70–91; RESP 12–20; TEMP 36.6–38.2; O2SAT 89–95; BMI 29.9
--- NOTE | 2022-11-25 05:37 | PC.NURSE ---
pt appears to be more dyspneic this am. prn duoneb given and extra dose of 1 mg iv bumex given. 02 demands increased to vm. adequate uop, pt remains alert and oriented x3.
[2022-11-25 06:46] LABS: Basophils % 0.2 % (0.1-2.0); Eosinophils % 0.2 % (0.1-12.0); Hematocrit 32.1 % (37.0-47.0); Hemoglobin 9.9 g/dL (12.2-16.2); Lymphocytes # 1.5 K/mm3 (0.7-4.5); Lymphocytes % 8.7 % (10-50); Mean Corpuscular HGB Conc 30.9 g/dL (31.8-35.4); Mean Corpuscular Volume 93.7 fl (81-99); Mean Platelet Volume 8.5 fl (7.4-10.4); Monocytes % 5.7 % (1.7-9.3); Neutrophils % 85.2 % (37.0-80.0); Platelet Count 488 K/mm3 (142-424); Red Blood Count 3.43 M/mm3 (4.20-5.40); Red Cell Distribution Width 15.6 % (11.5-17.5); White Blood Count 17.6 K/mm3 (4.8-10.8)
[2022-11-25 06:48] LABS: MANUAL DIFFERENTIAL MANUAL DIFFERENTIAL (MANUAL DIFF)
[2022-11-25 07:03] LABS: Alanine Aminotransferase 31 U/L (12-78); Albumin Level 3.3 g/dl (3.5-5.0); Albumin/Globulin Ratio 0.7 (1.1-1.8); Alkaline Phosphatase 192 U/L (38-126); Anion Gap 11.4 mEq/L (5-15); Aspartate Amino Transferase 34 U/L (14-36); Bilirubin,Total 0.2 mg/dl (0.2-1.3); Blood Urea Nitrogen 30 mg/dl (7-17); Carbon Dioxide 32 mmol/L (22.0-30.0); Chloride 100 mmol/L (98-107); Creatinine Clearance Estimated 48 mL/min (50-200); Estimated Glomerular Filt Rate 40 ml/min (>60); GFR (African American) 48 ML/MIN (>60); Globulin 4.6 g/dL (1.3-3.2); Glucose 117 mg/dl (74-100); Potassium 3.4 mmoL/L (3.5-5.1); Sodium 140 mmol/L (136-145); Total Protein,Serum 7.9 g/dl (6.3-8.2)
[2022-11-25 07:19] LABS: Lymphocytes % 11 % (10-50); Monocytes % 7 % (2-9); Myelocytes % 1 (0-1); Neutrophils % 79 % (42-76); Total Cells Counted 100
[2022-11-25 07:20] LABS: Platelet Estimate Slight Increase; RBC Morphology Normal
--- NOTE | 2022-11-25 09:21 | EXP.PHA.CONS ---
Pharmacy Consult Date: 11/25/22 Time: 09:21 Referring provider: DR. FLORES Reason for Consult:: VANCOMYCIN DOSING Allergies Allergy/AdvReac Type Severity Reaction Status Date / Time No Known Allergies Allergy Verified 09/19/22 13:00 Home Medications Medication Instructions Recorded Confirmed Type fluoxetine 40 mg capsule 40 mg PO DAILY Mood 03/27/21 11/24/22 History metoprolol tartrate 25 mg tablet 12.5 mg PO BID High Blood Pressure 03/02/22 11/24/22 History trazodone 50 mg tablet 25 mg PO HS Insomnia 03/02/22 11/24/22 History acetaminophen 500 mg tablet 1,000 mg PO Q6HP PRN Fever Or Pain 03/03/22 11/24/22 History loperamide 2 mg capsule 2 mg PO Q4HP PRN Diarrhea 03/03/22 11/24/22 History sennosides 8.6 mg tablet 17.2 mg PO DAILYP PRN Constipation 03/03/22 11/24/22 History bumetanide 2 mg tablet 2 mg PO DAILY Fluid 11/24/22 11/24/22 History ipratropium 0.5 mg-albuterol 3 mg 3 ml inhalation Q4HP PRN Wheezing 11/24/22 11/24/22 History (2.5 mg base)/3 mL nebulization soln olanzapine 5 mg tablet 5 mg PO HS Dementia 11/24/22 11/24/22 History New Prescriptions to Start Prescriptions: Height: 1.65 m Weight: 81.732 kg Laboratory Results:: Laboratory Results - last 24 hr 11/24/22 06:10: Hemoglobin A1c 5.6 11/25/22 06:19: WBC 17.6 H, RBC 3.43 L, Hgb 9.9 L, Hct 32.1 L, MCV 93.7, MCH 29.0, MCHC 30.9 L, RDW 15.6, Plt Count 488 H, MPV 8.5, Neut % (Auto) 85.2 H, Lymph % (Auto) 8.7 L, Wayne % (Auto) 5.7, Eos % (Auto) 0.2, Baso % (Auto) 0.2, Neut # (Auto) 15.0 H, Lymph # (Auto) 1.5, Wayne # (Auto) 1.0, Eos # (Auto) 0.0, Baso # (Auto) 0.0, Total Counted 100, Neutrophils % (Manual) 79 H, Band Neutrophils % 2.0, Lymphocytes % (Manual) 11, Monocytes % (Manual) 7, Myelocytes % 1, Platelet Estimate Slight increase, RBC Morphology Normal, Sodium 140, Potassium 3.4 L, Chloride 100, Carbon Dioxide 32 H, Anion Gap 11.4, BUN 30 H, Creatinine 1.30 H, Estimated Creat Clear 48, Estimated GFR 40 L, Est GFR ( Amer) 48 L, Glucose 117 H, Calcium 9.0, Magnesium 2.0, Total Bilirubin 0.2, AST 34, ALT 31, Alkaline Phosphatase 192 H, Total Protein 7.9, Albumin 3.3 L, Globulin 4.6 H, Albumin/Globulin Ratio 0.7 L Medical History: Medical History (Updated 11/23/22 @ 17:00 by Chino Clancy MD) Anxiety Arthritis of knee Chronic anemia COVID-19 Dementia Depression Diastolic dysfunction Falls HTN (hypertension) Lacunar infarction Ovarian cancer Respiratory failure with hypoxia and hypercapnia Assessment and Plan Assessment and plan all Dx Assessment and Plan for all problems:: Pharmacokinetic dosing service Objective: Patient: Floor: Age: 77 yo Serum creatinine: 1.3 mg/dL Height: 65.0 Inches Weight (kg): 81.7 Assessment: IBW (kg): 57.00 Dosing wt(kg): 81.7 Estimated Creatinine clearance (ml/min): 33.6 CRCL method: Cockcroft and Gault using ibw(default). Drug selected: Vancomycin Loading dose (mg): 0 Vd (liters): 65.4 (factor used: 0.8 L/kg) Ravinder (hr-1): 0.032 Half life (hrs): 21.66 Recommended dose: 1250 mg Interval: 24 hrs Infusion time (hrs): 2.0 Predicted peak (mcg/mL): 34.5 Predicted trough (mcg/mL): 17.06 Total body weight is being used for vancomycin dosing. Recommendations: PATIENT HAS BEEN RECEIVING VANCOMCYIN 1500 MG X1 DOSE ON 11/23/22. ALSO VANCOMYCIN 1250 MG Q18H SINCE 11/24. WILL OBTAIN PEAK AND TROUGH LEVEL TOMORROW DUE TO CHANGING RENAL FUNCTION. DEPENDING ON LEVELS TOMORRW WILL LIKELY Give Vancomycin 1250 mg q 24 hrs with an expected Cpeak of 34.5 mcg/ml and an expected Ctrough of 17.06 mcg/ml. ----Vanco only - ignore for aminoglycosides----- CLvanco= 2.09 L/hr AUC 0-24 /NEWTON Data: NEWTON 0.5 mcg/mL: AUC/NEWTON: 1196.2 NEWTON 1.0 mcg/mL: AUC/NEWTON: 598.1 --------- NEWTON 1.5 mcg/mL: AUC/NEWTON: 398.7 NEWTON 2.0 mcg/mL:
--- NOTE | 2022-11-25 12:17 | PC.NURSE ---
PT UP TO CHAIR FOR LUNCH. DID WELL WITH X2 ASSIST.
[2022-11-25 12:35] LABS: C-Reactive Protein > 300.0 mg/L (0-4)
--- NOTE | 2022-11-25 13:14 | EXP.ACUTE.PN ---
Subjective *Date: 11/25/22 *Time: 13:14 Interval history: Patient is consistently requiring 6 L nasal cannula today. Has no acute change in mentation. Denies feeling short of breath, having chest pain, nausea or vomiting. States she feels better today than yesterday. Clinically is about the same however. Medical Exam Vital signs and Labs for Last 24 Hours: Vital Signs Temp Pulse Pulse Resp BP Pulse Ox O2 Del Method 11/25/22 12:32 Nasal Cannula 11/25/22 08:00 90 11/25/22 11:31 97.8 F 70 19 137/70 94 L Nasal Cannula 11/25/22 11:04 92 L Nasal Cannula 11/25/22 11:03 87 11/25/22 11:03 81 11/25/22 10:32 Nasal Cannula 11/25/22 09:00 Nasal Cannula 11/25/22 08:00 91 L Nasal Cannula 11/25/22 07:54 100.7 F H 91 H 17 143/75 H 95 BiPAP 11/25/22 07:00 Venturi Mask 11/25/22 07:13 11/25/22 06:42 89 L Venturi Mask 11/25/22 04:00 70 11/25/22 05:57 84 11/25/22 05:57 86 11/25/22 05:15 90 L Venturi Mask 11/25/22 05:00 Nasal Cannula 11/25/22 04:00 98.9 F 79 18 155/75 H 90 L Nasal Cannula 11/25/22 00:00 70 11/25/22 03:00 Nasal Cannula 11/25/22 01:00 Nasal Cannula 11/25/22 00:53 75 11/25/22 00:53 78 11/25/22 00:00 98.9 F 73 18 133/67 94 L Nasal Cannula 11/24/22 23:00 Nasal Cannula 11/24/22 21:00 Nasal Cannula 11/24/22 22:41 Nasal Cannula 11/24/22 20:00 80 11/24/22 20:00 97.9 F 95 H 18 130/70 93 L Nasal Cannula 11/24/22 18:37 Nasal Cannula 11/24/22 18:07 70 11/24/22 18:07 72 11/24/22 18:07 91 L Nasal Cannula 11/24/22 16:00 80 11/24/22 16:00 97.5 F L 73 24 132/67 90 L Nasal Cannula 11/24/22 16:36 Nasal Cannula 11/24/22 14:48 70 11/24/22 14:43 Nasal Cannula O2 Flow Rate FiO2 11/25/22 12:32 6 11/25/22 08:00 11/25/22 11:31 6 11/25/22 11:04 6 11/25/22 11:03 11/25/22 11:03 11/25/22 10:32 6 11/25/22 09:00 6 11/25/22 08:00 6 11/25/22 07:54 11/25/22 07:00 11/25/22 07:13 65 11/25/22 06:42 50 11/25/22 04:00 11/25/22 05:57 11/25/22 05:57 11/25/22 05:15 50 11/25/22 05:00 6 11/25/22 04:00 2 11/25/22 00:00 11/25/22 03:00 4.5 11/25/22 01:00 4.5 11/25/22 00:53 11/25/22 00:53 11/25/22 00:00 2 11/24/22 23:00 4.5 11/24/22 21:00 4.5 11/24/22 22:41 4.5 11/24/22 20:00 11/24/22 20:00 2 11/24/22 18:37 4.5 11/24/22 18:07 11/24/22 18:07 11/24/22 18:07 11/24/22 16:00 11/24/22 16:00 11/24/22 16:36 4.5 11/24/22 14:48 11/24/22 14:43 4.5 Intake and Output 11/24/22 11/25/22 11/25/22 23:59 07:59 15:59 Intake Total 360 / 3094 270 / 740 470 / 740 Output Total 0 1 2401 / 3401 1000 / 3401 Balance 360 / 1543 -2131 / -2661 -530 / -2661 Intake: Intake, Oral Amount 360 / 780 270 / 740 470 / 740 Output: Output, Urine Amount 0 1 2401 / 3401 1000 / 3401 Other: Number of Voids 0 Number of Unmeasured Voids 1 0 Weight 81.732 kg 81.732 kg Patient Weight 11/25/22 23:59 Weight 81.732 kg Laboratory Results - last 24 hr 11/24/22 06:10: C-Reactive Protein > 300.0 H 11/25/22 06:19: WBC 17.6 H, RBC 3.43 L, Hgb 9.9 L, Hct 32.1 L, MCV 93.7, MCH 29.0, MCHC 30.9 L, RDW 15.6, Plt Count 488 H, MPV 8.5, Neut % (Auto) 85.2 H, Lymph % (Auto) 8.7 L, Jenkins % (Auto) 5.7, Eos % (Auto) 0.2, Baso % (Auto) 0.2, Neut # (Auto) 15.0 H, Lymph # (Auto) 1.5, Jenkins # (Auto) 1.0, Eos # (Auto) 0.0, Baso # (Auto) 0.0, Total Counted 100, Neutrophils % (Manual) 79 H, Band Neutrophils % 2.0, Lymphocytes % (Manual) 11, Monocytes % (Manual) 7, Myelocytes % 1, Platelet Estimate Slight increase, RBC Morphology Normal, Sodium 140, Potassium 3.4 L, Chloride 100, Carbon Dioxide 32 H, Anion Gap 11.4, BUN 30 H, Creatinine 1.30 H, Estimated Creat Clear 48, Estimated GFR 40
--- NOTE | 2022-11-25 13:45 | HMH.PTEV ---
Physical Therapy Evaluation Rehab PT IP Evaluation Start: 11/25/22 10:39 Freq: ONCE Status: Active Protocol: Document 11/25/22 13:42 PHORNE (Rec: 11/25/22 13:45 PHORNE [id number]) Subjective/History History History 77 yowf adm to [facility] with sepsis and PNA. She reports she is a SNF resident. Hx of COPD and dementia. She reports she requires assistance with all ADLs at baseline and ambulates with RW. Subjective Subjective Pt with no c/o this pm, agrees to mobility assessment. New diagnosis of cancer in past 12 No months? Rehab PT IP Eval Objective Appearance Patient Behavior Appropriate Patient Orientation Person,Place,Time Difficulty following instructions none Speech Pattern Clear Ambulation Patient Able to Ambulate Yes Ambulation Observation IP General Gait Pattern Observation Shuffling Step Ambulation Distance (feet) 5 Ambulation Assistive Device Rolling Walker Ambulation Ability Minimal x 1 (25% assist) Balance Ability to Arise Able, uses arms to help Sitting Balance Steady, safe Standing Balance Unsteady Dynamic Sitting Balance Ability Fair Dynamic Standing Balance Ability Poor Transfers Bed Transfer Ability Minimal x 1 (25% assist) Chair Transfer Ability Minimal x 1 (25% assist) Sit to Stand Bed Transfer Ability Minimal x 1 (25% assist) Sit to Stand Chair Transfer Ability Minimal x 1 (25% assist) Rehab PT IP prob,goals,plan Problems Date of Evaluation: 11/25/22 PT IP Problems Bed Mobility,Transfers,Gait Rehab Potential Rehab Potential Good Plan PT Intervention Plan Bed Mobility,Transfers,Gait, Therapeutic Exercise PT Plan Frequency Daily Duration LOS Discharge Goals Bed Transfer Ability Contact Guard/Hand Hold Sit to Stand Chair Transfer Ability Contact Guard/Hand Hold Ambulation Assistive Device Rolling Walker Ambulation Distance (feet) 20 Discharge Plan PT Discharge Plan Pt is most appropriate to return to SNF once medically stable for d/c. Eval Complexity Eval Charge Codes 55624 - High Complexity PHYSICIAN CERTIFICATION: I certify the specified therapy services for Keyla Damon are required, authorized, and reviewed every 30 days.
--- NOTE | 2022-11-25 14:38 | HMH.OTEV ---
OT Inpatient Evaluation Rehab OT IP Evaluation Start: 11/25/22 10:39 Freq: ONCE Status: Active Protocol: Document 11/25/22 14:34 [facility] (Rec: 11/25/22 14:38 [facility] [id number]) Rehab OT IP Assessment Subjective History Pt oriented x 3 on arrival. Pt agreeable to engage in therapy evaluation. Pt admitted on 11/23/22 due to PNA . Pt is a 77 yowf adm to [facility] with sepsis and PNA. She reports she is a SNF resident. Hx of COPD and dementia. She reports she requires assistance with all ADLs at baseline and ambulates with RW . Subjective I want to stay in the chair. Objective Patient Orientation Person,Place,Birthday Upper Extremity Gross ROM WFL Transfer Training Sit/Stand Transfer Assist Level Minimal x 1 (25% assist) Chair Transfer Ability Minimal x 1 (25% assist) Chair Transfer Technique Stand Step Pivot Lower Body Dressing Ability Maximum Assistance Rehab OT IP prob,goals,plan Problems Date of Evaluation: 11/25/22 OT IP Problems Bed Mobility,Transfers,Balance ,Self care,Safety Rehab Potential Rehab Potential Good Equipment Needs Assistive Devices Rolling / Wheeled Walker Plan OT intervention Plan Bed Mobility,Transfers,Balance ,Self care,Safety,Therapeutic Exercise OT Plan Frequency Daily Duration LOS Discharge Goals Bed Mobility Ability Assistance x1 Sit to Stand Chair Transfer Ability Contact Guard/Hand Hold Chair Transfer Ability Contact Guard/Hand Hold Chair Transfer Technique Sit to/from Ambulatory Chair Transfer Assistive Devices Rolling Walker Feeding Ability Assist with Tray Set Up Lower Body Dressing Ability Assistance X1 Upper Body Dressing Ability Standby Assistance Bathing Ability Assistance x1 Performing Toilet Hygiene Ability Assistance X1 Overall Commode/Toilet Transfer Ability Assistance x1 Commode/Toilet Transfer Technique Sit to/from Ambulatory Commode/Toilet Transfer Assistive Raised Toilet Seat,Grab Bars Devices Oral Care Ability Needs Supervision decrease in endurance Yes Discharge Plan OT Discharge Plan Pt will continue to have OT services while at [facility]. Pt is most appropriate
--- NOTE | 2022-11-25 17:45 | PC.NURSE ---
PT HAS REMAINED A&OX2. INTERMITTENT CONFUSION. HAS TOLERATED 6LNC WELL THIS SHIFT. SAT LOW 90S. PT STILL HAS INTERMITTENT PRODUCTIVE COUGH. HAS HAD NO NEEDS OR C/O NOTED THIS SHIFT. RESTING IN BED AT THIS TIME, TOLERATING DIET WELL. VSS.
[2022-11-26] VITALS (9 sets, daily range): BP systolic 130–152; BP diastolic 72–82; PULSE 63–123; RESP 16–18; TEMP 36.4–37.2; O2SAT 90–95; BMI 29.2
[2022-11-26 06:36] LABS: Basophils # 0.1 K/mm3 (0-0.2); Basophils % 0.6 % (0.1-2.0); Eosinophils # 0.1 K/mm3 (0.0-0.4); Eosinophils % 1.2 % (0.1-12.0); Hematocrit 30.7 % (37.0-47.0); Hemoglobin 9.3 g/dL (12.2-16.2); Lymphocytes # 1.8 K/mm3 (0.7-4.5); Lymphocytes % 14.9 % (10-50); Mean Corpuscular HGB Conc 30.2 g/dL (31.8-35.4); Mean Corpuscular Hemoglobin 28.4 pg (27.0-31.2); Mean Corpuscular Volume 93.9 fl (81-99); Mean Platelet Volume 8.1 fl (7.4-10.4); Monocytes # 0.7 K/mm3 (0.1-1.0); Monocytes % 6.1 % (1.7-9.3); Neutrophils # 9.4 K/mm3 (1.8-7.8); Neutrophils % 77.3 % (37.0-80.0); Platelet Count 489 K/mm3 (142-424); Red Blood Count 3.27 M/mm3 (4.20-5.40); Red Cell Distribution Width 15.7 % (11.5-17.5); White Blood Count 12.1 K/mm3 (4.8-10.8)
[2022-11-26 06:42] LABS: Magnesium 2.1 mg/dl (1.6-2.3)
[2022-11-26 06:43] LABS: Alanine Aminotransferase 24 U/L (12-78); Albumin Level 3.1 g/dl (3.5-5.0); Albumin/Globulin Ratio 0.7 (1.1-1.8); Alkaline Phosphatase 152 U/L (38-126); Anion Gap 9.5 mEq/L (5-15); Aspartate Amino Transferase 23 U/L (14-36); Bilirubin,Total 0.2 mg/dl (0.2-1.3); Blood Urea Nitrogen 29 mg/dl (7-17); Calcium 8.8 mg/dl (8.4-10.2); Carbon Dioxide 34 mmol/L (22.0-30.0); Chloride 102 mmol/L (98-107); Creatinine Clearance Estimated 47 mL/min (50-200); Estimated Glomerular Filt Rate 40 ml/min (>60); GFR (African American) 48 ML/MIN (>60); Globulin 4.3 g/dL (1.3-3.2); Glucose 108 mg/dl (74-100); Potassium 3.5 mmoL/L (3.5-5.1); Sodium 142 mmol/L (136-145); Total Protein,Serum 7.4 g/dl (6.3-8.2)
--- NOTE | 2022-11-26 06:44 | PC.NURSE ---
pt slept through the night, nsr on monitor, remained on 6l/nc, turned down to 4l/nc @ 0630
--- NOTE | 2022-11-26 07:26 | XR_ITS ---
FINAL REPORT CLINICAL HISTORY: Shortness of breath COMPARISON: 03/13/2022 FINDINGS: The heart size is normal. The mediastinum is normal. There are mild chronic changes at the bases. Airspace opacity in the right middle lobe has improved consistent with resolved pneumonia. There are no pleural effusions. There is no pneumothorax. There is no osseous abnormality. IMPRESSION: Resolved pneumonia right middle lobe. Reviewed, Interpreted and Dictated by Ayad Alvarez MD Transcribed by Lupe Fuentes Authenticated and [facility]
--- NOTE | 2022-11-26 08:37 | SW/DCPLANNER ---
Addendum entered by Jeri Coles 11/26/22 10:05: I have updated Fay w/ [place] that patient will return today. Original Note: This patient currently resides at [facility] level of care. PT/OT evaluated patient and recommended SNF level of care. The plan for this patient is to return to [facility] level of care once medically stable for discharge. Discharge date is unknown at this time. I will continue to follow up w/ Fay from [place].
--- NOTE | 2022-11-26 09:53 | EXP.DC.SUM ---
General Admission date:: 11/23/22 Discharge date: 11/26/22 HPI HPI HPI: This is a 77-year-old female that presents to [facility] emergency department from her [place] retirement with concerns of shortness of air, fever and tachycardia. Her past medical history significant for COPD on 3 L of oxygen, coronary disease, heart failure with preserved ejection fraction, diverticulosis, mood disorder, chronic anemia. She describes dysphagia but no odynophagia. She describes frequent coughing with food consumption but no associated emesis. She reports associated shortness of air not improving with home medications. She describes fever and chills so she was brought to the ED for evaluation. In the ED her presenting temperature was 102.9 with tachycardia, tachypnea and required 6 L of oxygen to maintain appropriate oxygen saturations. Her laboratory studies identified a leukocytosis with a normal lactic acid. Blood cultures were acquired and she was started on IV antibiotic therapy. Her chest x-ray was consistent with right lower lobe infiltrate. Hospital Course Hospital Course Hospital Course: This is a 77-year-old female that resides at [facility] who has identified intermittent dysphagia with cough. She started experiencing fever and chills with increased shortness of air so she was brought to the ED for evaluation. In the ED she met sepsis criteria with her fever, abnormal vitals and leukocytoses. Increased oxygen requirement on admission. Has gradually been able to wean back to 3 L nasal cannula with appropriate saturations. Clinically showing improvement with diuresis and antibiotics for pneumonia and volume overload. Stable for discharge back to retirement to continue treatment. Problems addressed as follows: Sepsis, POA Febrile, tachycardic, tachypneic, leukocytosis, CT chest with patchy airspace disease bilaterally. Blood cultures negative to date Continue vancomycin, creatinine up slightly to 1.3, transition to cefepime IV 2 g twice daily Sepsis, POA Acute respiratory failure with hypoxemia Acute exacerbation of chronic obstructive pulmonary disease Pneumonia On presentation, patient was febrile, tachycardic, tachypneic, with leukocytosis. CT of her chest with patchy airspace disease bilaterally. Blood cultures obtained and were negative. Concern for aspiration pneumonia as a component of her disease along with volume overload. Was initiated on broad-spectrum antibiotics with gradual improvement. We will de-escalate antibiotics to levofloxacin to complete a total of 7 days of therapy. Will need 3 more days orally of levofloxacin 500 mg renally dosed. Has been able to wean back to 3 L by day of discharge. Continue supplemental oxygen with goal saturation greater 90%. White cell count is improved to 12,000. Overall clinically better. Patient has no complaints of shortness of breath or chest pain at this time. Plan to continue DuoNebs 3 times a day scheduled. Resume Trelegy inhaler daily. Acute on chronic HFpEF Coronary artery disease Telemetry monitoring during admission. Echo obtained with preliminary read showing preserved ejection fraction. Patient is responded well to diuresis with resolution of her edema. She is -2.5 L since admission. We will continue Bumex 2 mg daily. Recommend continuing her metoprolol 12.5 mg twice daily. Blood pressure has been well controlled. Chronic anemia Iron and TIBC both low. B12 within normal range at 339. Iron replacement therapy with ascorbic acid Generalized anxiety disorder Dementia Previous stroke Continue home regimen including olanzapine 5 mg nightly, Prozac 40 daily, trazodone 25 mg nightly. Stable for discharge back to retirement. Plan to complete antibiotics. Continue diuresis. Spent 35 minutes in discharge counseling, documentation, chart review, and direct care with patient. Exam Data for Last 24 hours Vital signs and Labs for
[2022-11-30 10:38] LABS: MRSA DNA PCR NEGATIVE
== END 2022-11-26 13:15 | DRG 871 ==
LOC: ER 15:58 → 2ND 16:56
PROVIDERS: Internal Medicine Adolescent Medicine; Nurse Practitioner Critical Care Medicine; Student in an Organized Health Care Education/Training Program; Admitting Provider Family Medicine; Emergency Provider Emergency Medicine; PCP Emergency Medicine; Visit Provider Family Medicine
DX: A41.9 Sepsis, unspecified organism (principal); I50.33 Acute on chronic diastolic (congestive) heart failure; J96.01 Acute respiratory failure with hypoxia; J18.9 Pneumonia, unspecified organism; R65.21 Severe sepsis with septic shock; J44.1 Chronic obstructive pulmonary disease with (acute) exacerbation; J44.0 Chronic obstructive pulmonary disease with (acute) lower respiratory infection; Y95 Nosocomial condition; Z99.81 Dependence on supplemental oxygen; Z85.43 Personal history of malignant neoplasm of ovary; Z86.73 Personal history of transient ischemic attack (TIA), and cerebral infarction without residual deficits; F03.90 Unspecified dementia, unspecified severity, without behavioral disturbance, psychotic disturbance, mood disturbance, and anxiety; Z87.891 Personal history of nicotine dependence; D64.89 Other specified anemias
CPT/HCPCS: 36415; 71045; 71046; 71250; 80048; 80053; 82607; 82803; 82962; 83036; 83540; 83550; 83605; 83735; 84484; 85007; 85025; 85610; 86140; 87040; 87070; 87077; 87186; 87205; 87636; 87641; 92610; 93005; 93306; 94640; 94660; 94761; 97163; 97166; 97530; 99291; J0131; J0456; J2543; J3475

== ENCOUNTER → 2023-01-12 12:01 | Outpatient (CLI) | payer MEDICARE, MEDICAID, SELFPAY ==
[2023-01-12 12:39] LABS: Basophils % 0.5 % (0.1-2.0); Eosinophils # 0.2 K/mm3 (0.0-0.4); Eosinophils % 2.6 % (0.1-12.0); Hematocrit 36.3 % (37.0-47.0); Hemoglobin 12.3 g/dL (12.2-16.2); Lymphocytes # 1.3 K/mm3 (0.7-4.5); Lymphocytes % 20.4 % (10-50); Mean Corpuscular Hemoglobin 31.3 pg (27.0-31.2); Mean Corpuscular Volume 91.9 fl (81-99); Mean Platelet Volume 8.6 fl (7.4-10.4); Monocytes # 0.4 K/mm3 (0.1-1.0); Monocytes % 6.8 % (1.7-9.3); Neutrophils # 4.4 K/mm3 (1.8-7.8); Neutrophils % 69.8 % (37.0-80.0); Platelet Count 289 K/mm3 (142-424); Red Blood Count 3.95 M/mm3 (4.20-5.40); Red Cell Distribution Width 15.9 % (11.5-17.5); White Blood Count 6.3 K/mm3 (4.8-10.8)
== END ==
PROVIDERS: PCP Emergency Medicine; Visit Provider Emergency Medicine
DX: I50.30 Unspecified diastolic (congestive) heart failure (principal)
CPT/HCPCS: 85025

== ENCOUNTER 2023-04-20 13:05 | Outpatient (CLI) | payer MEDICARE, MEDICAID, SELFPAY ==
--- NOTE | 2023-04-20 13:41 | CT_ITS ---
FINAL REPORT CLINICAL HISTORY: lung cancer screening FORMER SMOKER, QUIT 1 YEAR AGO. [id number] YEARS COMPARISON: 11/23/2022 FINDINGS: CTDI vol (mGy): 2.90 DLP: 85.[address] images of the chest were obtained using the low-dose protocol for screening.There are moderate coronary artery calcifications. There is no evidence of mediastinal or hilar mass or adenopathy. No axillary mass or adenopathy is identified. On the lung window images, there is moderate emphysema and mild scarring. Peripheral groundglass opacities are seen favored represent alveolitis. There is a nodule at the minor fissure measuring 5 mm on image 41 likely representing an intrafissural lymph node. IMPRESSION: Peripheral pulmonary fibrosis with alveolitis. Lung RADS category 1S. Recommend 12 month followup low-dose CT for further evaluation. Reviewed, Interpreted and Dictated by Joaquín Ceballos III, MD Transcribed by Alexandra Carrasco Authenticated and [facility]
--- NOTE | 2023-04-20 13:49 | PC.NURSE ---
Pt unable to follow commands for PFT, office made aware.
== END 2023-04-20 23:59 ==
PROVIDERS: PCP Internal Medicine Adolescent Medicine; Visit Provider Internal Medicine Pulmonary Disease
DX: R06.09 Other forms of dyspnea (principal); F17.210 Nicotine dependence, cigarettes, uncomplicated; Z12.2 Encounter for screening for malignant neoplasm of respiratory organs
CPT/HCPCS: 71271; 94010; 94618; 94727; 94729

== ENCOUNTER 2023-10-06 12:54 | Outpatient (CLI) | payer MEDICARE, MEDICAID, SELFPAY ==
[2023-10-06] MEDS: ALBUTEROL 0.083% 2.5 MG/3 ML NEB IH (13:18)
--- NOTE | 2023-10-06 13:18 | PC.NURSE ---
Pre and Post Spirometry completed without incident. Albuterol 0.083% given via HHN, per written protocol, Pt tolerated tx well.
== END 2023-10-06 23:59 | disposition home or self-care (01) ==
LOC: RT 12:54
PROVIDERS: PCP Internal Medicine Adolescent Medicine; Visit Provider Internal Medicine Pulmonary Disease
DX: J44.9 Chronic obstructive pulmonary disease, unspecified (principal); Z87.891 Personal history of nicotine dependence
CPT/HCPCS: 94010; 94060; J7613

== ENCOUNTER 2024-09-22 15:49 | Outpatient (CLI) | payer MEDICARE, MEDICAID, SELFPAY ==
--- OUTSIDE RECORDS SUMMARY | 2024-09-22 15:53 | XMS_ITS | Clinical Summary ---
Author Organization [facility] Address [address] [place] [address] Phone Care Team Providers Care Strand And Binder Controller Name Role Phone Unavailable Primary Care Provider Unavailabl e Allergies No known active allergies Active Problems Problem Noted Date Diagnosed Date MDD (major depressive disord er), recurrent, severe, with psychosis 11/28/2020 Neurocognitive disorder 11/28/2020 Anxiety disorder, unspecified 11/28/2020 Medication monitoring encounter 11/28/2020 HTN (hypertension) 11/28/2020 Insomnia, unspecified 11/28/2020 Social History Tobacco Use Types Packs/Day Years Used Date Smoking Tobacco: Never Assessed Comments Unknown Sex and Gender Information Value Date Recorded Sex Assigned at Not on file Legal Sex Female 10:04 PM EDT Gender Identity Not on file Sexual Orientation Not on file Plan of Treatment Health Maintenance Due Date Last Done Comments Wellness Exam Medicare 11/01/1948 Hepatitis C Screening 11/01/1965 DTaP/TDaP/Td (1 - Tdap) 11/01/1966 Pneumococcal Vaccine 50+ (1 of 1 - PCV) 11/01/1997 Zoster (1 of 2) 11/01/1997 Bone Density Screening 11/01/2012 RSV or 60+ (1 - 1-d ose 75+ series) 11/01/2022 COVID-19 Vaccine (1 - 2023-2 5 season) 2023 Influenza Vaccine (#1) 2024 Hepatitis B Vaccine Aged Out No longe r eligible based on patient's age to complete this topic Meningococcal B Vaccine Aged Out No l onger eligible based on patient's age to complete this topic Insurance MEDICARE [place] PART A AND B [facility] [id number] [place] [address]
--- OUTSIDE RECORDS SUMMARY | 2024-09-22 15:53 | XMS_ITS | Clinical Summary ---
Author Organization [facility] Address [address] [place] [address] Care Team Providers Care Wood Carving Lathe Operator Name Role Phone Unavailable Primary Care Provider Unavailabl e Allergies No known active allergies Medications OLANZapine (ZyPREXA) 5 MG tablet Take 1 tablet (5 mg) by mouth every night. Active traZODone (Desyrel) 50 MG tablet Take 0.5 tablets (25 mg) by mouth every night. Active bumetanide (Bumex) 2 MG tablet Take 1 tablet (2 mg) by mouth 1 (one) time each day. 30 tablet 3 Active FLUoxetine (PROzac) 40 MG capsule Take 1 capsule (40 mg) by mouth 1 (one) time each day. 30 capsule 3 Active ipratropium-alb uterol (Duo-Neb) 0.5-2.5 mg/3 mL nebulizer solution Take 3 mL by nebulization every 4 (four) hours if needed for wheezing or shortness of breath. 180 mL 3 Active metoprolol tartrate (Lopressor) 25 MG tablet Take 0.5 tablets (12.5 mg) by mouth 2 (two) times a day. 30 tablet 3 Active bacitracin 500 UNIT/GM ointment Apply topically 2 (two) times a day. 14 g 3 Active Active Problems Problem Noted Date Diagnosed Date Degenerative disc disease, cervical 10/15/2022 Overview (10/15/2022): Multilevel chronic appearing vertebral height loss at C3-C7. Multiple small lucencies within the dens. Partially calcified presumed chronic disc extrusion at C3-C4, likely causing mild mass effect on the spinal canal. Multilevel disc space narrowing, worst at C5-C6. Partial straightening of the cervical lordosis. Minimal anterolisthesis of C2 on C3 and C3 and C4. Follow up with primary care for surveillance White matter disease 10/15/2022 Overview (10/15/2022): Mild to moderate white matter disease most likely representing chronic small vessel ischemia Follow up with PCP for surveillance Lacunar infarction 10/15/2022 Overview (10/15/2022): Chronic lacunar infarct in bilateral basal ganglia Arthropathy 10/15/2022 Overview (10/15/2022): Multilevel facet arthropathy, worse at L5-S1 Incidental finding Follow up PCP Rib deformity 10/15/2022 Overview (10/15/2022): Several slight rib deformities laterally on the left, likely sequela of previous rib fractures No tenderness on exam, incidental finding No additional O2 requirements Radiolucent lesion of bone 10/15/2022 Overview (10/15/2022): Radiolucent area along the paramedian left occipital bone. Appearance is overall benign such as prominent arachnoid granulation, however clinical correlation for primary or secondary malignancy is recommended. Found incidentally on trauma scans Recommend follow up with PCP for surveillance and any additional workup indicated Defect of endplate of vertebra 10/15/2022 Overview (10/15/2022): Inferior endplate sclerosis of T8 and T10 Incidental finding Subdural hemorrhage 10/14/2022 Overview (10/15/2022): Layering acute subdural hemorrhage/hematoma along the right tentorium NSG consult -Repeat 6h CTH, reviewed and stable -No acute neurosurgical intervention at this time given patient stability and absence of red flag symptoms -Hold AC/AP medications for 2 weeks from stable scan on 10/14 (10/28) -Monitor for any neurologic changes -NSG signed off 10/14 Occipital bone fracture 10/14/2022 Overview (10/14/2022): Possible fracture of the occipital bone medial to the occipitomastoid suture. Nasal bone fracture 10/14/2022 Overview (10/14/2022): Nasal bone fracture COOPER consult - Bacitracin to abrasion/small laceration BID - Sinus precautions with ocean nasal spray TID PRN - Elevate HOB and cool compresses for edema - Anticipate nonoperative management - Follow up with Dr. Lee 2 weeks after discharge at [facility] CHF (congestive heart failure) 10/14/2022 Overview (10/14/2022): Congestive Heart Failure Complicates Care COPD (chronic obstructive pulmonary disease) 10/2022 Overview (10/16/2022): COPD 3LNC at home Currently on 3L NC Complicates care CAD (coronary artery disease) 10/14/2022 Overview (10/14/2022): Coronary Artery Disease Complicates Care Dementia 10/14/2022 Overview (10/14/2022): Dementia Complicates Care Fall, initial encounter 10/14/2022 Overview (10/14/2022): Fall from standing SGT admit Tertiary due 10/15 Electrolyte abnormality 10/14/2022 Overview (10/14/2022): Hypomagnesemia - replace 10/14 Anemia 10/14/2022 Overview (10/14/2022): HDS, CTM Leukocytosis 10/14/2022 Overview (10/14/2022): Likely related to trauma, CTM UTI (urinary tract infection) 10/14/2022 Overview (10/14/2022): Fosfomycin x1 10/14 Hyperglycemia 10/14/2022 Overview (10/14/2022): Likely secondary to trauma CTM Resolved Problems Problem Noted Date Diagnosed Date Resolved Date SCOTT (acute kidney injury) 10/14/2022 Overview (10/15/2022): Scr 1.3 POA IVF Resolved 10/15 Immunizations Immunization Administration Dates Next Due Blair COVID-19 Vaccine (Blue Cap) 18+ 07/03/19 21 Moderna COVID-19 Vaccine Bivalent 6months+ 12/25 Pfizer-BioNTech COVID-19 Vaccine (Purple Cap) 12 + 01/07/2021 Social History Tobacco Use Types Packs/Day Years Used Date Smoking Tobacco: Former Cigarettes Smokeless Tobacco: Never Alcohol Use Standard Drinks/Week Comments Not Currently 0 (1 standard drink = 0.6 oz pur e alcohol) CAGE ASSESSMENT Answer Date Recorded Cage unable to access Not on file 10/15/2022 Cage max number of drinks Not on file 2022 Cage Beverages a week Not on file 10/15/2022 Have you ever felt you should CUT down on your d rinking? 0 10/15/2022 Have you been ANNOYED by people criticizing your drinking? 0 10/15/2022 Have you felt GUILTY about your drinking? 0 10/15/2022 Have you had a drink first t juventino in the morning (EYE-JAVA MANAGER) to steady your nerves or to get rid of a hangover? 0 10/15/2022 CAGE Questionnaire Score 0 023 Comments Unknown Sex and Gender Information Value Date Recorded Sex Assigned at Not on file Legal Sex Female 8:09 PM EDT Gender Identity Not on file Sexual Orientation Not on file Last Filed Vital Signs Vital Sign Reading Time Taken Comments Blood Pressure 116/69 11/03/2022 2:39 PM EDT Pulse 66 11/03/2022 2:39 PM EDT Temperature 35.9 C (96.6 F) 11/03/2022 2:39 PM EDT Respiratory Rate 16 10/17/2022 7:54 AM EDT Oxygen Saturation 94% 11/03/2022 2:39 PM EDT Inhaled Oxygen Concentration - - Weight 78.9 kg (174 lb) 11/03/2022 2:39 PM EDT Height 165.1 cm (5' 5 ) 11/03/2022 2:39 PM EDT Body Mass Index 28.96 11/03/2022 2:39 PM EDT Plan of Treatment Health Maintenance Due Date Last Done Comments UKY-Bone Density Scan 1945 UKY-Depression Screening 1945 UKY-Medicare Annual Wellness (AWV) 1945 [facility]Y-/Child/Adol SDOH Screenings 1945 UKY- SDOH Screenings 11/01/1965 UKY-Adult SDOH Screenings 11/01/1965 UKY-DTaP,Tdap,and Td Vaccines (1 - Tdap) 11/01/1966 UKY-Pneumococcal Vaccine: 50+ Years (1 of 1 - PCV) 11/01/1997 UKY-Zoster Vaccines (1 of 2) 11/01/1997 UKY-RSV Vaccine: 60+ Years or (1 - 1-dose 75+ series) 11/01/2022 [id number] Vaccine (4 - season) 2023 12/25/2021, 01/07/2021, 07/02/2020 UKY-Influenza Vaccine (#1) 2024 UKY-Diabetes: Hemoglobin A1C Discontinued 05/11/2020 [facility]Y-Hepatitis C Screening Completed 10/13/2022 UKY-Obesity Intervention Completed 11/03/2022 HPV Vaccines Aged Out No longer eligi ble based on patient's age to complete this topic UKY-HIB Vaccines Aged Out No longer e ligible based on patient's age to complete this topic UKY-Hepatitis A Vaccines Aged Out No longer eligible based on patient's age to complete this topic UKY-IPV Vaccines Aged Out No longer e ligible based on patient's age to complete this topic UKY-Rotavirus Vaccines Aged Out No lo nger eligible based on patient's age to complete this topic Procedures Procedure Name Priority Date/Time Associated Diagnosis Comments HEPATITIS C ANTIBODY - ED W/REFLEX TO HCV QUANT PCR STAT 10/13/2022 9:11 PM EDT HEMOGLOBIN A1C Routine 05/11/2020 6:51 AM EST from Last 3 Months or Most Recently Relevant to Health Maintenance Results * Hepatitis C Antibody - ED (10/13/2022 9:11 PM EDT) Hepatitis C Antibody Negative Negative 10/13/2022 10:14 PM EDT [facility] Blood Venous blood specimen / Unknown Venipuncture / Unknown 10/13/2022 9:11 PM EDT 10/13/2022 9:33 PM EDT us Cody Sawyer MD LAB BLOOD ORDERABLES Final R esult [facility] [address] [place] [address] * Hemoglobin A1c (05/11/2020 6:51 AM EST) Hemoglobin A1c 5.7 4.7 - 6.0 % [facility] Comment: Glycohemoglobin Reference Range, 0 years and up: 4.7 to 6.0% . HA1C Interpretive Data: Diagnosis of Diabetes: Diabetic > or = 6.5% Pre-diabetic 5.7 to 6.4% Non-diabetic < or = 5.6% . Glycemic Targets for Type I and Type II Diabetics: Non- Adults <7.0% Adults <6.0% Children and Adolescents <7.5% . Source: [place] Diabetes Association. Standards of medical care in diabetes, 2017. Diabetes Care.2017:40 (suppl 1):S1-S135. . HbA1c assay performed by an ion-exchange chromatography method that is certified traceable to the DCCT. 05/11/2020 6:5 1 AM EST 05/11/2020 10:38 AM EST us Ebenezer ROSA LAB BLOOD ORDERABLES Final Re sult [facility] from Last 3 Months or Most Recently Relevant to Health Maintenance Insurance MEDICARE [place] Advance Directives * Full Code (Latest Code Status on File) Date Activated Date Inactivated Comments 10/17/2022 12:27 PM * Full Code Date Activated Date Inactivated Comments 10/14/2022 3:47 AM 10/17/2022 12:27 PM Question Answer Comments Patient has decision-making capacity? Yes
--- OUTSIDE RECORDS SUMMARY | 2024-09-22 15:53 | XMS_ITS ---
Author Organization [place] Care Team Providers Care Cardiovascular Surgical Tech Name Role Phone Marichuy Gomez Unavailable Unavailable Allergies and adverse reactions No Known Allergies Care Team Name Role Address Phone Organization Dates Marichuy Gomez PCP [address] [place] [address], [facility] (Office): [place] 03/29/2021 - 04/10/2021 Goals Section Goals Description Status Target Date Maintain stable weight. Active 06/29/19 Pain will be managed with goal range. Active 06/28/2021 Prevent/heal wounds and prevent avoidable skin b reakdown. Active 06/28/2021 Resident will have a normal bowel movement at least every (X) day through the review date. Active 06/28/2021 Resident will not display a negative reactive behavior related to the identified stressors or like situations. Active Resident will not experience a recurrence of identified stressor while in the facility. Active 06/28/2021 Resident will not experience any adverse effects throughout the review period. Active 06/28/2021 The resident will be able to return to the commu nit. Active 06/28/2021 The resident will be free fr om s/sx of complications of cardiac problems through the review date. Active 06/28/2021 The resident will be free of any discomfort or adverse side effects of hypnotic use through the review date. Active 06/28 The resident will be free of signs and symptoms of COVID-19 through next review. Active 06/28/2021 The resident will have no in dications of psychosocial well being problem by/through review date. Active 06/28/2021 The resident will maintain n ormal breathing pattern as evidenced by normal respirations, normal skin color, and regular respiratory rate/pattern through the review date. Active 06/28/2021 Will achieve/maintain maximum functional mobilit y. Active 06/28/2021 Will attend/participate in activities of choice. Active 06/28/2021 Will consume adequate fluids to maintain hydrati on. Active 06/28/2021 Will continue to remain free from falls. Active 06/28/2021 Will have needs met by assistance of staff as ne eded. Active 06/28/2021 Immunizations Immunization Status Vaccine Details Vaccine Code CodeSystem Date Notes TB 2 Step Mantoux Skin Test completed tuberculin skin test; unspecified formulation lotNumber: [id number] expiry: 08/08/2022 Mfg: Turbersol Given 0.1 ml Left Forearm intradermally Step 1 of Multi-step with next step required 98 CVX created date: 03/30/2021 consent date: 03/30/2021 administer ed date: 03/30/2021 SARS-COV-2 (COVID-19) completed SARS-COV-2 (COVID-19) vaccine, mRNA, spike protein, LNP, preservative free, 30 mcg/0.3mL dose, analia-sucrose formulation Step 1 of Multi-step 217 CVX created date: 04/04/2021 administer ed date: 01/07/2021 Booster to Blair SARS-COV-2 (COVID-19) completed SARS-COV-2 (COVID-19) vaccine, vector non-replicating, recombinant spike protein-Ad26, preservative free, 0.5 mL Step 1 of Multi-step 212 CVX created date: 04/04/2021 administer ed date: 07/02/2020 Mental Status Section Date Assessment Total Score Description 04/10/2021 BIMS 10 moderate cognit federico impairment CAM 0 No delirium ind icated PHQ-9 12 moderate depres peter 04/04/2021 BIMS 10 moderate cognit federico impairment CAM 0 No delirium ind icated PHQ-9 12 moderate depres peter Problems Problem # Description Date of onset Resolved Date Code CodeSystem Concern Status 1 ACUTE RESPIRATORY FAILURE WITH HYPOXIA 03/29/[address] active 2 COVID-19 03/29/[address] active 3 ELEVATED C-REACTIVE PROTEIN (CRP) 03/29/[address] active 4 ELEVATED ERYTHROCYTE SEDIMENTATION RATE 03/29/[address] active 5 ESSENTIAL (PRIMARY) HYPERTENSION 03/29/[address] active 6 HEART FAILURE, UNSPECIFIED 03/29/[address] active 7 INSOMNIA, UNSPECIFIED 03/29/[address] active 8 OTHER RECURRENT DEPRESSIVE DISORDERS 03/29/[address] active 9 PNEUMONIA DUE TO CORONAVIRUS DISEASE 201803/29/[address] active 10 UNSPECIFIED DEMENTIA, UNSPECIFIED SEVERITY, WITHOUT BEHAVIORAL DISTURBANCE, PSYCHOTIC DISTURBANCE, MOOD DISTURBANCE, AND ANXIETY 03/29/[address] active Reason for Referral No Reasons for Referral Entered Social History Social History Observation Description Start Date End Date Code Code System Current Smoking Status Tobacco smoking consumption unknown 582963787 SNOMED CT Sex Assigned At Female 1945 [address]82-[address] [facility] Gender Identity Vital Signs Code Code System Vitals Name Values and Units Timing Information 46412-[address] [facility] Pain Level Value=0.0 04/09/2021 16709-[address] [facility] O2 % BldC Oximetry Value=95.0 Units= % 04/09/2021 9279-[address] [facility] Respiratory Rate Value=20.0 Units=/m in 04/08/2021 8462-[address] [facility] Blood Pressure-Diastolic Value=85 Un its=mmHg 04/08/2021 8480-[address] [facility] Blood Pressure-Systolic Qypdj=793 Un its=mmHg 04/08/2021 8310-[address] [facility] Body Temperature Value=97.2 Units= F 04/08/2021 8867-[address] [facility] Heart rate Value=55.0 Units=/min 42215-[address] [facility] Weight Tvtmo=416.2 Units=Lbs 8302-[address] [facility] Height Value=65.0 Units=Inches 03/30/2021
== END 2024-09-22 23:59 | disposition home or self-care (01) ==
LOC: LAB.DROPOF 15:51
PROVIDERS: PCP Nurse Practitioner Family; Visit Provider Nurse Practitioner Family
DX: N39.41 Urge incontinence (principal)
CPT/HCPCS: 87086; 87088; 87186

== ENCOUNTER 2024-09-23 08:27 | Outpatient (CLI) | payer MEDICARE, MEDICAID, SELFPAY ==
--- OUTSIDE RECORDS SUMMARY | 2024-09-23 08:33 | XMS_ITS ---
Author Organization [place] Care Team Providers Care Evp Operations Name Role Phone Marichuy Gomez Unavailable Unavailable Allergies and adverse reactions No Known Allergies Care Team Name Role Address Phone Organization Dates Marichuy Gomez PCP [address] [place] [address], [facility] (Office): [place] 03/29/2021 - 04/10/2021 Goals Section Goals Description [...] completed tuberculin skin test; unspecified formulation lotNumber: [id number] expiry: 08/08/2022 Mfg: Turbersol Given 0.1 ml [...] 1 ACUTE RESPIRATORY FAILURE WITH HYPOXIA 03/29/[address] active 2 COVID-19 03/29/[address] active 3 ELEVATED C-REACTIVE PROTEIN (CRP) 03/29/[address] active 4 ELEVATED ERYTHROCYTE SEDIMENTATION RATE 03/29/[address] active 5 ESSENTIAL (PRIMARY) HYPERTENSION 03/29/[address] active 6 HEART FAILURE, UNSPECIFIED 03/29/[address] active 7 INSOMNIA, UNSPECIFIED 03/29/[address] active 8 OTHER RECURRENT DEPRESSIVE DISORDERS 03/29/[address] active 9 PNEUMONIA DUE TO CORONAVIRUS DISEASE 201803/29/[address] active 10 UNSPECIFIED DEMENTIA, UNSPECIFIED SEVERITY, WITHOUT BEHAVIORAL DISTURBANCE, PSYCHOTIC DISTURBANCE, MOOD DISTURBANCE, AND ANXIETY 03/29/[address] active Reason for Referral No Reasons for Referral Entered Social History Social History Observation Description Start Date End Date Code Code System Current Smoking Status Tobacco smoking consumption unknown 725650695 SNOMED CT Sex Assigned At Female 1945 71953-3 [facility] Gender Identity Vital Signs Code Code System Vitals Name Values and Units Timing Information 76384-4 [facility] Pain Level Value=0.0 04/09/2021 20404-5 [facility] O2 % BldC Oximetry Value=95.0 Units= % 04/09/2021 9279-1 [facility] Respiratory Rate Value=20.0 Units=/m in 04/08/2021 8462-4 [facility] Blood Pressure-Diastolic Value=85 Un its=mmHg 04/08/2021 8480-6 [facility] Blood Pressure-Systolic Itfes=962 Un its=mmHg 04/08/2021 8310-5 [facility] Body Temperature Value=97.2 Units= F 04/08/2021 8867-4 [facility] Heart rate Value=55.0 Units=/min 00767-6 [facility] Weight Lwhfw=676.2 Units=Lbs 8302-2 [facility] Height Value=65.0 Units=Inches 03/30/2021
--- OUTSIDE RECORDS SUMMARY | 2024-09-23 08:33 | XMS_ITS | Clinical Summary ---
Author Organization [place] Mamadou kssarina [facility] Address [address] [place] [address] Phone Care Team Providers Care Tentering Machine Off Bearer Name Role Phone Unavailable Primary Care Provider [...] Insurance MEDICARE [place] PART A AND B [facility] [id number] [place] [address]
--- OUTSIDE RECORDS SUMMARY | 2024-09-23 08:33 | XMS_ITS | Clinical Summary ---
Author Organization [facility] Address [address] [place] [address] Care Team Providers Care Geophysics Professor Name Role Phone Unavailable Primary Care Provider [...] Dr. Lee 2 weeks after discharge at [facility] CHF (congestive heart failure) [...] 10/15 Immunizations Immunization Administration Dates Next Due Blari COVID-19 Vaccine (Blue Cap) 18+ 07/03/19 21 [...] drink first t juventino in the morning (EYE-APPLICATIONS PROCESSOR) to steady your nerves or to get [...] or (1 - 1-dose 75+ series) 11/01/2022 [id number] Vaccine (4 - season) 2023 12/25/2021, 01/07/2021, [...] Antibody Negative Negative 10/13/2022 10:14 PM EDT [facility] Blood Venous blood specimen / Unknown Venipuncture / Unknown 10/13/2022 9:11 PM EDT 10/13/2022 9:33 PM EDT us Cody Sawyer MD LAB BLOOD ORDERABLES Final R esult [facility] [address] [place] [address] * Hemoglobin A1c (05/11/2020 6:51 AM EST) [...] <6.0% Children and Adolescents <7.5% . Source: [place] Diabetes Association. Standards of medical care in [...]
[2024-09-23 08:51] LABS: Hematocrit 38.0 % (37.0-47.0); Hemoglobin 11.8 g/dL (12.2-16.2); Immature Granulocytes % 0.8 %; Mean Corpuscular HGB Conc 31.1 g/dL (31.8-35.4); Mean Corpuscular Hemoglobin 29.1 pg (27.0-31.2); Mean Corpuscular Volume 93.6 fl (81-99); Nucleated Red Blood Cells % 0 %; Platelet Count 287 K/mm3 (142-424); Red Blood Count 4.06 M/mm3 (4.20-5.40); Red Cell Distribution Width-SD 54.5 fL; White Blood Count 6.6 K/mm3 (4.8-10.8)
[2024-09-23 09:30] LABS: Anion Gap 15.4 mEq/L (5-15); Blood Urea Nitrogen 28 mg/dl (7-17); Calcium 9.1 mg/dl (8.4-10.2); Carbon Dioxide 30 mmol/L (22.0-30.0); Chloride 99 mmol/L (98-107); Creatinine,Serum 0.90 mg/dl (0.52-1.04); Estimated Glomerular Filt Rate 61 ml/min (>60); GFR (African American) 74 ML/MIN (>60); Glucose 144 mg/dl (74-100); Potassium 3.4 mmoL/L (3.5-5.1); Sodium 141 mmol/L (136-145)
== END 2024-09-23 23:59 | disposition home or self-care (01) ==
LOC: LAB.DROPOF 08:31
PROVIDERS: PCP Nurse Practitioner Family; Visit Provider Nurse Practitioner Family
DX: N39.41 Urge incontinence (principal)
CPT/HCPCS: 80048; 85025

== ENCOUNTER 2024-11-18 13:45 | Outpatient (CLI) | payer MEDICARE, MEDICAID, SELFPAY ==
[2024-11-18 14:33] LABS: Blood Urea Nitrogen 20 mg/dl (7-17); Creatinine,Serum 0.90 mg/dl (0.52-1.04); Estimated Glomerular Filt Rate 61 ml/min (>60); GFR (African American) 73 ML/MIN (>60)
== END 2024-11-18 23:59 | disposition home or self-care (01) ==
LOC: LAB.DROPOF 13:46
PROVIDERS: PCP Internal Medicine Adolescent Medicine; Visit Provider Nurse Practitioner Family
DX: I10 Essential (primary) hypertension (principal)
CPT/HCPCS: 82565; 84520

== ENCOUNTER 2024-11-21 07:57 | Outpatient (CLI) | payer MEDICARE, MEDICAID, SELFPAY ==
--- OUTSIDE RECORDS SUMMARY | 2024-11-21 08:00 | XMS_ITS ---
Author Organization [facility] Care Team Providers Care Biomass Production Manager Name Role Phone Marichuy Gomez Unavailable Unavailable Allergies and adverse reactions No Known Allergies Care Team Name Role Address Phone Organization Dates Marichuy Gomez PCP [address] [place] [address], [facility] (Office): [place] 03/29/2021 - 04/10/2021 Goals Section Goals Description [...] completed tuberculin skin test; unspecified formulation lotNumber: [id number] expiry: 08/08/2022 Mfg: Turbersol Given 0.1 ml [...] ind icated PHQ-9 12 moderate depres peter Plan of Treatment Section Interventions Intervention Code Code System Display Name Proposed D ate Problems Problem # Description Date of onset Resolved Date Code CodeSystem Concern Status 1 ACUTE RESPIRATORY FAILURE WITH HYPOXIA 03/29/[address] active 2 COVID-19 03/29/[address] active 3 ELEVATED C-REACTIVE PROTEIN (CRP) 03/29/[address] active 4 ELEVATED ERYTHROCYTE SEDIMENTATION RATE 03/29/[address] active 5 ESSENTIAL (PRIMARY) HYPERTENSION 03/29/[address] active 6 HEART FAILURE, UNSPECIFIED 03/29/[address] active 7 INSOMNIA, UNSPECIFIED 03/29/[address] active 8 OTHER RECURRENT DEPRESSIVE DISORDERS 03/29/[address] active 9 PNEUMONIA DUE TO CORONAVIRUS DISEASE 201803/29/[address] active 10 UNSPECIFIED DEMENTIA, UNSPECIFIED SEVERITY, WITHOUT BEHAVIORAL DISTURBANCE, PSYCHOTIC DISTURBANCE, MOOD DISTURBANCE, AND ANXIETY 03/29/[address] active Reason for Referral No Reasons for Referral Entered Social History Social History Observation Description Start Date End Date Code Code System Current Smoking Status Tobacco smoking consumption unknown 050390168 SNOMED CT Sex Assigned At Female 1945 40716-1 [facility] Gender Identity Sexual Orientation Vital Signs Code Code System Vitals Name Values and Units Timing Information 46582-3 [facility] Pain Level Value=0.0 04/09/2021 38000-7 [facility] O2 % BldC Oximetry Value=95.0 Units= % 04/09/2021 9279-1 [facility] Respiratory Rate Value=20.0 Units=/m in 04/08/2021 8462-4 [facility] Blood Pressure-Diastolic Value=85 Un its=mmHg 04/08/2021 8480-6 [facility] Blood Pressure-Systolic Kaspa=632 Un its=mmHg 04/08/2021 8310-5 [facility] Body Temperature Value=97.2 Units= F 04/08/2021 8867-4 [facility] Heart rate Value=55.0 Units=/min 03489-6 [facility] Weight Evsxf=383.2 Units=Lbs 8302-2 [facility] Height Value=65.0 Units=Inches 03/30/2021
--- OUTSIDE RECORDS SUMMARY | 2024-11-21 08:00 | XMS_ITS | Clinical Summary ---
Author Organization [place] Mamadou ilsarina [facility] Address [address] [place] [address] Phone Care Team Providers Care Optical Lens Manufacturing Tech Name Role Phone Unavailable Primary Care Provider [...] COVID-19 Vaccine (1 - 2023-2 5 season) 2024 Influenza Vaccine (#1) 2024 Hepatitis B Vaccine Aged Out No longe r eligible based on patient's age to complete this topic Meningococcal B Vaccine Aged Out No l onger eligible based on patient's age to complete this topic Insurance MEDICARE [place] PART A AND B [facility] [id number] [facility]
--- OUTSIDE RECORDS SUMMARY | 2024-11-21 08:00 | XMS_ITS | Clinical Summary ---
Author Organization [facility] Address [address] [place] [address] Care Team Providers Care Washroom Attendant Name Role Phone Unavailable Primary Care Provider [...] Dr. Lee 2 weeks after discharge at [facility] CHF (congestive heart failure) [...] drink first t juventino in the morning (EYE-PLANT OPERATIONS COORDINATOR) to steady your nerves or to get [...] or (1 - 1-dose 75+ series) 11/01/2022 [id number] Vaccine (4 - 2024- season) 2024 12/25/2021, 01/07/2021, 07/02/2020 [facility]Y-Influenza Vaccine (#1) 2024 [...] Antibody Negative Negative 10/13/2022 10:14 PM EDT [facility] Blood Venous blood specimen / Unknown Venipuncture / Unknown 10/13/2022 9:11 PM EDT 10/13/2022 9:33 PM EDT Cody Sawyer MD LAB BLOOD ORDERABLES Final R esult [facility] [address] [place] [address] * Hemoglobin A1c (05/11/2020 6:51 AM EST) [...] <6.0% Children and Adolescents <7.5% . Source: [place] Diabetes [employer]. Standards of medical care in diabetes, 2017. Diabetes Care.2017:40 (suppl 1):S1-S135. . HbA1c assay performed by an ion-exchange chromatography method that is certified traceable to the DCCT. 05/11/2020 6:51 AM EST 05/11/2020 10:38 AM EST us [...]
--- NOTE | 2024-11-21 08:02 | CT_ITS ---
FINAL REPORT TECHNIQUE: Axial imaging of the abdomen was obtained after the intravenous administration of contrast. This study was performed with techniques to keep radiation doses as low as reasonably achievable (ALARA). Individualized dose reduction techniques using automated exposure control or adjustment of mA and/or kV according to the patient's size were employed. CLINICAL HISTORY: COMMON BILE DUCT DILATATION COMPARISON: 11/26/2021 FINDINGS: There has been interval development of extensive interstitial opacities in the lower lobes, right greater than left suspicious for pneumonia. The liver has an unremarkable appearance, without evidence of mass. The gallbladder appears normal without evidence of gallstones. There is no evidence of biliary ductal dilatation. The pancreas appears normal. The spleen size is within normal limits. There is no evidence of renal mass or hydronephrosis. There is no evidence of adenopathy. There is an abdominal aortic aneurysm measuring up to 36 mm, unchanged from prior exam. No abnormal fluid collection is seen. No localized inflammatory processes identified. IMPRESSION: Extensive interstitial opacities in the lower lobes suspicious for pneumonia. Stable abdominal aortic aneurysm. No evidence of biliary ductal dilatation Reviewed, Interpreted and Dictated by Annalee Resendiz MD Transcribed by Alexandra Carrasco Authenticated and [facility]
[2024-11-21] MEDS: IOPAMIDOL-370 (76%);100ML BOTTLE 75 ML IV (09:07)
[2024-11-21] MEDS: SODIUM CHLORIDE 0.9% 10ML SYR (RAD ONLY) 10 ML IV (09:07)
== END 2024-11-21 23:59 | disposition home or self-care (01) ==
LOC: RAD 07:58
PROVIDERS: PCP Nurse Practitioner Family; Visit Provider Nurse Practitioner Family
DX: I71.40 Abdominal aortic aneurysm, without rupture, unspecified (principal); R91.8 Other nonspecific abnormal finding of lung field; K83.8 Other specified diseases of biliary tract
CPT/HCPCS: 74160; Q9967

== ENCOUNTER 2025-02-10 07:57 | Outpatient (CLI) | payer MEDICARE, MEDICAID, SELFPAY ==
--- NOTE | 2025-02-10 07:30 | CT_ITS ---
FINAL REPORT TECHNIQUE: Thin section axial images were obtained through the lungs using a low-dose technique per lung cancer screening protocol. Reconstruction images were obtained using the axial data. Exam was performed using dose reduction technique. CLINICAL HISTORY: lung cancer screening former smoker, quit 2 yrs ago, smoked 2 ppd for 30 yrs copd, hx of cervical cancer COMPARISON: 04/20/2023 FINDINGS: CTDLvol: 2.90 DLP: 110.46 Former smoker 60 pack year history Lungs: Changes of emphysema. New posterior left upper lobe ground glass opacities with several 4 mm or less nodules are favored to be infectious or inflammatory. Subpleural ground glass opacities and interlobular septal thickening at the lung bases is worse. There is a nodule along the right minor fissure which is unchanged and likely an intrafissural lymph node. No other nodules or masses identified. Lymph nodes: Right paratracheal lymphadenopathy is increased in size now measuring 24 mm and was 18 mm. No additional lymphadenopathy. Mediastinum: Heart size is normal. Prominent coronary artery calcifications. Linear filling defect in the trachea extending into the right mainstem bronchus is likely secretions. Pleura/pericardium: No pleural or pericardial effusion. Other: No acute abnormality in the upper abdomen. IMPRESSION: Worsening airspace opacity with new areas of subpleural ground glass opacity with subtle nodularity. Modifier as: Prominent coronary artery calcifications. Worsening right paratracheal lymphadenopathy, favor reactive. Lung RADS: 0S Recommendation: 3-month follow-up chest CT Reviewed, Interpreted and Dictated by Keya Story MD Transcribed by Lupe Fuentes Authenticated and [facility]
[2025-02-10 09:30] VITALS: PULSE 60; PULSE 67
[2025-02-10] MEDS: ALBUTEROL 0.083% 2.5 MG/3 ML NEB IH (09:30)
--- NOTE | 2025-02-10 10:00 | PC.NURSE ---
After getting patient from Radiology checked saturations and they were 79%. Patient stated that she wears 3L but did not come with any oxygen. [facility]. Called [facility] and asked if they would bring a tank so patient could have oxygen on the way back to facility. Left respiratory to bus on 3L nasal cannula
--- NOTE | 2025-02-10 10:10 | PC.NURSE ---
During 6MWT I had to increase patients oxygen to 6L to maintain 89%. Took test to and he prescribed some medication for her to start over the weekend. He printed the prescriptions for her to take back to the long-term. Her follow up appointment is in 3 days.
== END 2025-02-10 23:59 | disposition home or self-care (01) ==
LOC: RAD 07:58
PROVIDERS: PCP Nurse Practitioner Family; Visit Provider Internal Medicine Pulmonary Disease
DX: J44.9 Chronic obstructive pulmonary disease, unspecified (principal); I25.10 Atherosclerotic heart disease of native coronary artery without angina pectoris; R94.2 Abnormal results of pulmonary function studies; R91.8 Other nonspecific abnormal finding of lung field; R59.0 Localized enlarged lymph nodes; F17.210 Nicotine dependence, cigarettes, uncomplicated; Z12.2 Encounter for screening for malignant neoplasm of respiratory organs
CPT/HCPCS: 71271; 94060; 94618; 94640; 94726; 94729